=== PATIENT | female | born 1985 | race Caucasian/White ===

== ENCOUNTER 2017-11-28 08:21 | Emergency (ER) | payer BC, OTHER, SELFPAY ==
[2017-11-28 08:33] VITALS: BP 132/84; PULSE 93; RESP 16; TEMP 37; O2SAT 98
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
[2017-11-28] MEDS: Azithromycin 250 MG TAB 1000 MG PO (10:54)
[2017-11-28] MEDS: cefTRIAXone 250 MG VIAL IM (10:54)
== END 2017-11-28 11:35 | disposition home or self-care (01) ==
PROVIDERS: Emergency Provider Physician Assistant; PCP Nurse Practitioner Family
DX: T74.21XA Adult sexual abuse, confirmed, initial encounter (principal)
CPT/HCPCS: 96372; 99285; 99284; J0696

== ENCOUNTER 2018-02-14 03:18 | Outpatient (CLI) | payer BC, SELFPAY ==
--- NOTE | 2018-02-14 08:00 | PFT_ITS ---
DATE OF SERVICE: February 14, 2018 REQUESTING PROVIDER: Gino Husain M.D. INTERPRETATION OF STUDY: Spirometry shows no evidence of obstructive airways disease. No bronchodilator response. LUNG VOLUMES: Show no evidence of restriction. DIFFUSION CAPACITY: Borderline mildly elevated which is normal when corrected to alveolar volume. AIRWAYS RESISTANCE: Normal. IMPRESSION: Overall normal pulmonary function study. Clinical correlation recommended. If underlying hyperreactive airways or asthma is a diagnosis in question, proceeding with methacholine challenge testing may prove to be useful. cc: Gino Husain M.D.
[2018-02-14] MEDS: Inhaler, Assist Device 1 EACH MC (11:02)
[2018-02-14] MEDS: Albuterol HFA 18 GM 200 PUFF INH IH (11:03)
== END 2018-02-14 03:38 ==
PROVIDERS: PCP Nurse Practitioner Family; Visit Provider Family Medicine
DX: J20.9 Acute bronchitis, unspecified (principal); F17.200 Nicotine dependence, unspecified, uncomplicated

== ENCOUNTER 2018-03-17 14:20 | Emergency (ER) | payer BC, SELFPAY ==
[2018-03-17 14:27] VITALS: BP 112/64; PULSE 111; RESP 16; TEMP 36.7; O2SAT 98
--- NOTE | 2018-03-17 14:49 | W.ED.GENAD ---
Discharge Plan Disposition Patient Disposition: HOME Condition: Stable Discharge Details Chief Complaint: Nk/Back Pain Clinical Impression: Neck pain Primary Care Provider: Ara Torres ED Provider: Carol Maya Home Meds and New Rx's Prescriptions: New diazepam [Valium] 5 mg tablet 5 mg PO BID Qty: 8 RF: 0 Continue valacyclovir [Valtrex] 1 gram tablet 1,000 mg PO DAILY Qty: 90 RF: 3 acetaminophen [Tylenol Extra Strength] 500 MG tablet 2 tab PO PRN Qty: 2 RF: 0 sertraline 100 MG tablet 200 mg PO DAILY RF: 0 ibuprofen 800 MG tablet 800 mg PO PRN PRNRF: 0 No Action cyclobenzaprine 10 mg Tablet 10 mg PO TID PRNRF: 0 azithromycin 250 mg tablet 250 mg PO DAILY 9 Days Qty: 9 RF: 0 Discharge Instructions Instructions: Spasmodic Torticollis (ED) Additional Instructions: Please return immediately to the emergency department if you develop any new or worsening symptoms or if you become otherwise concerned. It is extremely important that you make an appointment to be seen in follow-up for this visit with your primary care doctor within the next 1-2 weeks. Stand Alone Forms: Work Release Referrals: Ara Torres [Primary Care Provider] - Discharge Data Discharge Date/Time-TO BE ENTERED AT DEPARTURE: 03/17/18 16:02 Medical Decision Making Laine Ham is a 32-year-old woman without history of major medical problems renting to the emergency department with several days of neck pain, worse after neck manipulation by chiropractor today. On exam patient appears uncomfortable but nontoxic. Right trapezius is visibly in spasm and is tender to palpation that reproduces pain of her chief complaint. There is no C-spine tenderness. No neurologic deficit, no carotid bruit. Exam/history is not consistent with carotid dissection or other acute vascular emergency, retropharyngeal abscess, peritonsillar abscess, other deep space infection, meningitis, subarachnoid hemorrhage, or other acute life-threatening process. Suspect torticollis. Plan for prednisone, Valium. Lengthy discussion with patient regarding return to emergency department precautions and importance of outpatient follow-up with PCP. Patient is amenable to the plan. VPMS search showed patient was prescribed 0.5 mg lorazepam in November, patient reports that she very rarely takes this medication has not taken in weeks. Lengthy discussion with patient regarding safe Valium use and Apsley no concurrent Valium and Ativan use. Patient understands the risk of with use of Valium and other sedating medications concurrently. She is amenable to appropriate valium use. Medical Records Medical records reviewed: Yes I reviewed the patient's medical records. HPI General Mode of arrival: ambulatory. Date/Time Provider Initiated Documentation: 03/17/18 14:42. Limitations to Documentation: no limitations. Information obtained by: patient, RN notes reviewed and old records reviewed. HPI Narrative: Laine Ham is a 32-year-old woman without history of major medical problems presenting to the emergency department with neck pain. Patient reports that 2 days ago she developed right-sided neck pain that was worse with movement of her neck. Patient went to see her chiropractor today for her neck pain, and her neck was manipulated there. Patient reports the neck pain has been much worse since manipulation. Pain is sharp, right-sided, radiates into right shoulder, and is worse with any movement of her neck. She denies headache or any other pain. She denies fevers, nausea/vomiting/diarrhea, rash, shortness of breath, cough, numbness, tingling, weakness of the extremities, speech change, vision changes. Has had cold symptoms over the past few weeks but otherwise has been healthy and eating and drinking normally. Patient reports that she has not had much to eat today because of the pain. Related Data Home Medications Medication Instructions Recorded Confirmed acetaminophen [Tylenol Extra 2 tab PO PRN #2 07/07/12 03/23/18 Strength] ibuprofen 800 mg PO PRN PRN 12/14/14 03/23/18 sertraline 200 mg PO DAILY tab-cap 01/09/17 03/23/18 valacyclovir 1 gram tablet 1,000 mg PO DAILY #90 tab 02/05/18 03/23/18 diazepam [Valium] 5 mg PO BID #8 tab 03/17/18 03/23/18 azithromycin 250 mg PO DAILY 9 Days #9 tab 03/23/18 cyclobenzaprine 10 mg PO TID PRN 03/23/18 03/23/18 Previous Rx's Medication Instructions Recorded valacyclovir 1 gram tablet 1,000 mg PO DAILY #90 tab 02/05/18 diazepam [Valium] 5 mg PO BID #8 tab 03/17/18 azithromycin 250 mg PO DAILY 9 Days #9 tab 03/23/18 Allergies Allergy/AdvReac Type Severity Reaction Status Date / Time latex Allergy Intermediate SKIN RASH Unverified 03/23/18 13:22 amoxicillin Allergy Unverified 03/23/18 13:22 [place] And Derivatives Allergy Hives Unverified 03/23/18 13:22 diphenhydramine Allergy Hives Unverified 03/23/18 13:22 [From Benadryl] General Stated Complaint: Nk/Back Pain SAMMI: 4 Review of Systems Review of Systems Constitutional: denies fevers Eyes: denies eye pain ENT: denies facial pain, dental pain, sore throat Cardiovascular: denies chest pain, edema Respiratory: denies SOB, cough GI: denies abdominal pain, vomiting, diarrhea : denies flank pain MSK: denies back pain, arthralgias, myalgias, reports neck pain Skin: denies rash Neuro: denies headaches, lightheadedness, weakness, n/t PFSH Female Reproductive History Menstrual control method: permanent sterilization Exam Narrative Exam Narrative: Constitutional: uncomfortable but [id number], pleasant, conversing normally HENT: head atraumatic, normocephalic normal inspection, mucous membranes moist, normal oropharynx, normal voice, no drooling Eyes: conjunctiva normal, sclera normal, pupils 3mm b/l Neck: no stridor, trachea midline. no c/s TTP. Right trapezius visibly in spasm, tender to palpation. No carotid bruit bilaterally. Can flex/extend neck fully, pain with lateral motion of the neck. No lymphadenopathy Chest: normal inspection Resp: normal work of breathing, LCTAB Cardio: normal rate, normal rhythm, no murmur appreciated Skin: warm, dry, normal color, no rash Neuro: alert, not altered, grossly non-focal, normal tone Ext: no edema Psych: normal mood, normal affect, normal behavior Course Vital Signs Temperature 36.7 C 03/17/18 14:27 Pulse 111 H 03/17/18 14:27 Respiratory Rate 16 03/17/18 14:27 Blood Pressure 112/64 03/17/18 14:27 Pulse Oximetry 98 03/17/18 14:27 Temperature 36.7 C 03/17/18 14:27 Temperature Source Temporal Artery Scan 03/17/18 14:27 Pulse 111 H 03/17/18 14:27 Respiratory Rate 16 03/17/18 14:27 Respiratory Effort 03/17/18 14:31 Blood Pressure 112/64 03/17/18 14:27 Blood Pressure Position Sitting 03/17/18 14:27 Pulse Oximetry 98 03/17/18 14:27 Oxygen Delivery Method Room Air 03/17/18 14:27 Oxygen Flow Rate 0 03/17/18 14:27 Pain Level 7 03/17/18 14:31
[2018-03-17] MEDS: predniSONE 20 MG TAB 60 MG PO (15:54)
[2018-03-17] MEDS: Diazepam 5 MG TAB PO (15:55)
[2018-03-17 16:00] VITALS: BP 124/63; PULSE 86; RESP 18; TEMP 36.7; O2SAT 98
--- NOTE | 2018-03-17 16:02 | ED.GENADUL_ITS ---
Discharge Plan Disposition Patient Disposition: HOME Condition: Stable Discharge Details Chief Complaint: Nk/Back Pain Clinical Impression: Neck pain Primary Care Provider: Ara Torres ED Provider: Carol Maya Home Meds and New Rx's Prescriptions: New diazepam [Valium] 5 mg tablet 5 mg PO BID Qty: 8 RF: 0 Continue valacyclovir [Valtrex] 1 gram tablet 1,000 mg PO DAILY Qty: 90 RF: 3 acetaminophen [Tylenol Extra Strength] 500 MG tablet 2 tab PO PRN Qty: 2 RF: 0 sertraline 100 MG tablet 200 mg PO DAILY RF: 0 ibuprofen 800 MG tablet 800 mg PO PRN PRNRF: 0 No Action cyclobenzaprine 10 mg Tablet 10 mg PO TID PRNRF: 0 azithromycin 250 mg tablet 250 mg PO DAILY 9 Days Qty: 9 RF: 0 Discharge Instructions Instructions: Spasmodic Torticollis (ED) Additional Instructions: Please return immediately to the emergency department if you develop any new or worsening symptoms or if you become otherwise concerned. It is extremely important that you make an appointment to be seen in follow-up for this visit with your primary care doctor within the next 1-2 weeks. Stand Alone Forms: Work Release Referrals: Ara Torres [Primary Care Provider] - Discharge Data Discharge Date/Time-TO BE ENTERED AT DEPARTURE: 03/17/18 16:02 Medical Decision Making Laine Ham is a 32-year-old woman without history of major medical problems renting to the emergency department with several days of neck pain, worse after neck manipulation by chiropractor today. On exam patient appears uncomfortable but nontoxic. Right trapezius is visibly in spasm and is tender to palpation that reproduces pain of her chief complaint. There is no C-spine tenderness. No neurologic deficit, no carotid bruit. Exam/history is not consistent with carotid dissection or other acute vascular emergency, retropharyngeal abscess, peritonsillar abscess, other deep space infection, meningitis, subarachnoid hemorrhage, or other acute life-threatening process. Suspect torticollis. Plan for prednisone, Valium. Lengthy discussion with patient regarding return to emergency department precautions and importance of outpatient follow-up with PCP. Patient is amenable to the plan. VPMS search showed patient was prescribed 0.5 mg lorazepam in November, patient reports that she very rarely takes this medication has not taken in weeks. Lengthy discussion with patient regarding safe Valium use and Apsley no concurrent Valium and Ativan use. Patient understands the risk of with use of Valium and other sedating medications concurrently. She is amenable to appropriate valium use. Medical Records Medical records reviewed: Yes I reviewed the patient's medical records. HPI General Mode of arrival: ambulatory . Date/Time Provider Initiated Documentation: 03/17/18 14:42 . Limitations to Documentation: no limitations . Information obtained by: patient, RN notes reviewed and old records reviewed . HPI Narrative: Laine Ham is a 32-year-old woman without history of major medical problems presenting to the emergency department with neck pain. Patient reports that 2 days ago she developed right-sided neck pain that was worse with movement of her neck. Patient went to see her chiropractor today for her neck pain, and her neck was manipulated there. Patient reports the neck pain has been much worse since manipulation. Pain is sharp, right-sided, radiates into right shoulder, and is worse with any movement of her neck. She denies headache or any other pain. She denies fevers, nausea/vomiting/diarrhea , rash, shortness of breath, cough, numbness, tingling, weakness of the extremities, speech change, vision changes. Has had cold symptoms over the past few weeks but otherwise has been healthy and eating and drinking normally. Patient reports that she has not had much to eat today because of the pain. Related Data Home Medications Medication Instructions Recorded Confirmed acetaminophen [Tylenol Extra 2 tab PO PRN #2 07/07/12 03/23/18 Strength] ibuprofen 800 mg PO PRN PRN 12/14/14 03/23/18 sertraline 200 mg PO DAILY tab-cap 01/09/17 03/23/18 valacyclovir 1 gram tablet 1,000 mg PO DAILY #90 tab 02/05/18 03/23/18 diazepam [Valium] 5 mg PO BID #8 tab 03/17/18 03/23/18 azithromycin 250 mg PO DAILY 9 Days #9 tab 03/23/18 cyclobenzaprine 10 mg PO TID PRN 03/23/18 03/23/18 Previous Rx's Medication Instructions Recorded valacyclovir 1 gram tablet 1,000 mg PO DAILY #90 tab 02/05/18 diazepam [Valium] 5 mg PO BID #8 tab 03/17/18 azithromycin 250 mg PO DAILY 9 Days #9 tab 03/23/18 Allergies Allergy/AdvReac Type Severity Reaction Status Date / Time latex Allergy Intermediate SKIN RASH Unverified 03/23/18 13:22 amoxicillin Allergy Unverified 03/23/18 13:22 [place] And Derivatives Allergy Hives Unverified 03/23/18 13:22 diphenhydramine Allergy Hives Unverified 03/23/18 13:22 [From Benadryl] General Stated Complaint: Nk/Back Pain SAMMI: 4 Review of Systems Review of Systems Constitutional: denies fevers Eyes: denies eye pain ENT: denies facial pain, dental pain, sore throat Cardiovascular: denies chest pain, edema Respiratory: denies SOB, cough GI: denies abdominal pain, vomiting, diarrhea : denies flank pain MSK: denies back pain, arthralgias, myalgias, reports neck pain Skin: denies rash Neuro: denies headaches, lightheadedness, weakness, n/t PFSH Female Reproductive History Menstrual control method: permanent sterilization Exam Narrative Exam Narrative: Constitutional: uncomfortable but [id number], pleasant , conversing normally HENT: head atraumatic, normocephalic normal inspection, mucous membranes moist, normal oropharynx, normal voice, no drooling Eyes: conjunctiva normal, sclera normal, pupils 3mm b/l Neck: no stridor, trachea midline. no c/s TTP. Right trapezius visibly in spasm , tender to palpation. No carotid bruit bilaterally. Can flex/extend neck fully, pain with lateral motion of the neck. No lymphadenopathy Chest: normal inspection Resp: normal work of breathing, LCTAB Cardio: normal rate, normal rhythm, no murmur appreciated Skin: warm, dry, normal color, no rash Neuro: alert, not altered, grossly non-focal, normal tone Ext: no edema Psych: normal mood, normal affect, normal behavior Course Vital Signs Temperature 36.7 C 03/17/18 14:27 Pulse 111 H 03/17/18 14:27 Respiratory Rate 16 03/17/18 14:27 Blood Pressure 112/64 03/17/18 14:27 Pulse Oximetry 98 03/17/18 14:27 Temperature 36.7 C 03/17/18 14:27 Temperature Source Temporal Artery Scan 03/17/18 14:27 Pulse 111 H 03/17/18 14:27 Respiratory Rate 16 03/17/18 14:27 Respiratory Effort 03/17/18 14:31 Blood Pressure 112/64 03/17/18 14:27 Blood Pressure Position Sitting 03/17/18 14:27 Pulse Oximetry 98 03/17/18 14:27 Oxygen Delivery Method Room Air 03/17/18 14:27 Oxygen Flow Rate 0 03/17/18 14:27 Pain Level 7 03/17/18 14:31
== END 2018-03-17 16:02 | disposition home or self-care (01) ==
PROVIDERS: Emergency Provider Student in an Organized Health Care Education/Training Program; PCP Nurse Practitioner Family
DX: M54.2 Cervicalgia (principal)
CPT/HCPCS: 99283; J7512

== ENCOUNTER 2018-03-23 13:13 | Emergency (ER) | payer BC, SELFPAY ==
[2018-03-23 13:19] VITALS: BP 134/79; PULSE 92; RESP 16; TEMP 37; O2SAT 99
--- NOTE | 2018-03-23 13:30 | W.ED.GENAD ---
Discharge Plan Disposition Patient Disposition: HOME Condition: Stable Discharge Details Chief Complaint: Nk/Back Pain Clinical Impression: Acute pharyngitis Primary Care Provider: Ara Torres ED Provider: Ian Griffith Home Meds and New Rx's Prescriptions: New azithromycin 250 mg tablet 250 mg PO DAILY 9 Days Qty: 9 RF: 0 Continue valacyclovir [Valtrex] 1 gram tablet 1,000 mg PO DAILY Qty: 90 RF: 3 acetaminophen [Tylenol Extra Strength] 500 MG tablet 2 tab PO PRN Qty: 2 RF: 0 sertraline 100 MG tablet 200 mg PO DAILY RF: 0 ibuprofen 800 MG tablet 800 mg PO PRN PRNRF: 0 diazepam [Valium] 5 mg tablet 5 mg PO BID Qty: 8 RF: 0 cyclobenzaprine 10 mg Tablet 10 mg PO TID PRNRF: 0 Discharge Instructions Instructions: Pharyngitis (ED) Additional Instructions: Continue ice, heat, medications as previously prescribed. Remove lidocaine patch in 1 week's time. Follow-up with primary care clinic on Saturday for recheck as planned. Take antibiotics as prescribed, next dose is tomorrow Return for worsening pain or any other acute concern Medical Decision Making 32-year-old female presents with days of right-sided neck pain now associated with sore throat and cough. She does not exhibit evidence of meningitis. She has no fever and vital signs notable for pulse in the 90s. Differential diagnosis includes pharyngitis, persistent torticollis or neck strain, must exclude deep space infection. Patient had IV access established, given fluids and ketorolac, referred for laboratory testing. Rapid strep test is positive. CBC and chemistries are essentially unremarkable. Patient's pain improved following the above interventions. Given her PCN allergy, will treat with Azithromycin. Patient will follow up with PMD on Saturday as planned. Return if worse. Lab Data Lab results reviewed: Yes I reviewed the patient's lab results. Laboratory Results - last 24 hr 03/23/18 03/23/18 13:40 13:40 WBC 7.50 RBC 4.33 Hgb 14.3 Hct 41.7 MCV 96.3 H MCH 33.0 MCHC 34.3 RDW 13.2 Plt Count 193 MPV 9.6 Immature Gran % 0.3 Neutrophils % 66.2 Lymphocytes % 25.9 Monocytes % 6.4 Eosinophils % 0.8 Basophils % 0.4 Absolute Neutrophils 4.97 Absolute Lymphocytes 1.94 Absolute Monocytes 0.48 Absolute Eosinophils 0.06 Absolute Basophils 0.03 Sodium 137 Potassium 3.9 Chloride 100 Carbon Dioxide 29.2 Anion Gap 7.8 BUN 15 Creatinine 0.80 Estimated GFR/1.73 m2 >= 60.00 Glucose 94 Calcium 8.6 Total Bilirubin 0.1 L AST 12 L ALT 18 Alkaline Phosphatase 42 L Total Protein 7.3 Albumin 4.1 HPI General Mode of arrival: ambulatory. Date/Time Provider Initiated Documentation: 03/23/18 13:15. Limitations to Documentation: no limitations. Information obtained by: patient. History of Present Illness 32 year old F presents to the emergency department with the chief complaint of Neck pain and sore throat, described as moderate, Quality is described as aching, and is localized to the mouth. Patient reports no radiation. Patient started experiencing this day(s) Rest improves symptom(s), Movement worsens symptoms . Patient notes fever/chills. HPI Narrative: Healthy 32-year-old female who was seen last Saturday for right-sided neck pain. She was treated with Valium and prednisone with minimal improvement. She now reports today sore throat with associated cough and congestion. She had persistent right-sided neck pain that is worse with movement and improved with rest. No fall or trauma. She is not have any changes to vision. She does not have change to voice or drooling. No numbness, tingling, weakness of the upper extremities Related Data Home Medications Medication Instructions Recorded Confirmed acetaminophen [Tylenol Extra 2 tab PO PRN #2 07/07/12 03/23/18 Strength] ibuprofen 800 mg PO PRN PRN 12/14/14 03/23/18 sertraline 200 mg PO DAILY tab-cap 01/09/17 03/23/18 valacyclovir 1 gram tablet 1,000 mg PO DAILY #90 tab 02/05/18 03/23/18 diazepam [Valium] 5 mg PO BID #8 tab 03/17/18 03/23/18 azithromycin 250 mg PO DAILY 9 Days #9 tab 03/23/18 cyclobenzaprine 10 mg PO TID PRN 03/23/18 03/23/18 Previous Rx's Medication Instructions Recorded valacyclovir 1 gram tablet 1,000 mg PO DAILY #90 tab 02/05/18 diazepam [Valium] 5 mg PO BID #8 tab 03/17/18 azithromycin 250 mg PO DAILY 9 Days #9 tab 03/23/18 Allergies Allergy/AdvReac Type Severity Reaction Status Date / Time latex Allergy Intermediate SKIN RASH Unverified 03/23/18 13:22 amoxicillin Allergy Unverified 03/23/18 13:22 [place] And Derivatives Allergy Hives Unverified 03/23/18 13:22 diphenhydramine Allergy Hives Unverified 03/23/18 13:22 [From Benadryl] General Stated Complaint: Nk/Back Pain SAMMI: 4 Review of Systems Review of Systems 8 systems reviewed and otherwise negative PFSH Family History Father Myocardial infarction Medical History Recurrent genital herpes simplex type 2 infection (Chronic) Polymerase chain reaction DNA test positive for herpes simplex virus type 2 (Acute 03/20/17) Tobacco use (Chronic) Bacterial vaginosis (Resolved) Depression (Resolved) Contraceptive management Social History number of children: 2 frequency: daily duration: 45-60 minutes/day Smoking/Tobacco Use Status: Current every day alcohol intake: current alcohol intake frequency: a few times a month Surgical History Ligation of fallopian tube (Acute 04/03/17) Female Reproductive History Menstrual control method: permanent sterilization Exam Narrative Exam Narrative: GEN: awake, alert, oriented 3. Pleasant, well groomed, interactive. HEAD: Normocephalic, atraumatic ENT: Mucous membranes moist, oropharynx with few areas of punctate ulceration, no exudate or swelling, External ear exam unremarkable EYES: PERRL, EOMI NECK: Full ROM, no KATI, no menigismus. Right paraspinous musculature is tender to palpation. CHEST/RESP: Nontender, clear to auscultation bilateral, no wheeze/rhonchi/rales CARDIOVASCULAR: RRR, no murmur, rub joelle. 2+ Rad pulse bilateral ABDOMEN: Soft, nontender, no mass. +Bowel sounds EXT: Full ROM, no edema, no rash Neuro: Grossly normal neurologic exam, conversant, interactive. Psych: Speech fluent, thoughts congruent, affect normal Course Vital Signs Temperature 37.0 C 03/23/18 13:19 Pulse 92 H 03/23/18 13:19 Respiratory Rate 16 03/23/18 13:19 Blood Pressure 134/79 03/23/18 13:19 Pulse Oximetry 99 03/23/18 13:19 Temperature 37.0 C 03/23/18 13:19 Temperature Source Skin 03/23/18 13:19 Pulse 92 H 03/23/18 13:19 Respiratory Rate 16 03/23/18 13:19 Respiratory Effort Non-Labored 03/23/18 13:21 Blood Pressure 134/79 03/23/18 13:19 Pulse Oximetry 99 03/23/18 13:19 Pain Level 8 03/23/18 13:23
--- NOTE | 2018-03-23 13:33 | ED.GENADUL_ITS ---
Discharge Plan Disposition Patient Disposition: HOME Condition: Stable Discharge Details Chief Complaint: Nk/Back Pain Clinical Impression: Acute pharyngitis Primary Care Provider: Ara Torres ED Provider: Ian Griffith Home Meds and New Rx's Prescriptions: New azithromycin 250 mg tablet 250 mg PO DAILY 9 Days Qty: 9 RF: 0 Continue valacyclovir [Valtrex] 1 gram tablet 1,000 mg PO DAILY Qty: 90 RF: 3 acetaminophen [Tylenol Extra Strength] 500 MG tablet 2 tab PO PRN Qty: 2 RF: 0 sertraline 100 MG tablet 200 mg PO DAILY RF: 0 ibuprofen 800 MG tablet 800 mg PO PRN PRNRF: 0 diazepam [Valium] 5 mg tablet 5 mg PO BID Qty: 8 RF: 0 cyclobenzaprine 10 mg Tablet 10 mg PO TID PRNRF: 0 Discharge Instructions Instructions: Pharyngitis (ED) Additional Instructions: Continue ice, heat, medications as previously prescribed. Remove lidocaine patch in 1 week's time. Follow-up with primary care clinic on Saturday for recheck as planned. Take antibiotics as prescribed, next dose is tomorrow Return for worsening pain or any other acute concern Medical Decision Making 32-year-old female presents with days of right-sided neck pain now associated with sore throat and cough. She does not exhibit evidence of meningitis. She has no fever and vital signs notable for pulse in the 90s. Differential diagnosis includes pharyngitis, persistent torticollis or neck strain, must exclude deep space infection. Patient had IV access established, given fluids and ketorolac, referred for laboratory testing. Rapid strep test is positive. CBC and chemistries are essentially unremarkable. Patient's pain improved following the above interventions. Given her PCN allergy, will treat with Azithromycin. Patient will follow up with PMD on Saturday as planned. Return if worse. Lab Data Lab results reviewed: Yes I reviewed the patient's lab results. Laboratory Results - last 24 hr 03/23/18 03/23/18 13:40 13:40 WBC 7.50 RBC 4.33 Hgb 14.3 Hct 41.7 MCV 96.3 H MCH 33.0 MCHC 34.3 RDW 13.2 Plt Count 193 MPV 9.6 Immature Gran % 0.3 Neutrophils % 66.2 Lymphocytes % 25.9 Monocytes % 6.4 Eosinophils % 0.8 Basophils % 0.4 Absolute Neutrophils 4.97 Absolute Lymphocytes 1.94 Absolute Monocytes 0.48 Absolute Eosinophils 0.06 Absolute Basophils 0.03 Sodium 137 Potassium 3.9 Chloride 100 Carbon Dioxide 29.2 Anion Gap 7.8 BUN 15 Creatinine 0.80 Estimated GFR/1.73 m2 >= 60.00 Glucose 94 Calcium 8.6 Total Bilirubin 0.1 L AST 12 L ALT 18 Alkaline Phosphatase 42 L Total Protein 7.3 Albumin 4.1 HPI General Mode of arrival: ambulatory . Date/Time Provider Initiated Documentation: 03/23/18 13:15 . Limitations to Documentation: no limitations . Information obtained by: patient . History of Present Illness 32 year old F presents to the emergency department with the chief complaint of Neck pain and sore throat, described as moderate, Quality is described as aching, and is localized to the mouth. Patient reports no radiation. Patient started experiencing this day(s) Rest improves symptom(s), Movement worsens symptoms . Patient notes fever/chills. HPI Narrative: Healthy 32-year-old female who was seen last Saturday for right- sided neck pain. She was treated with Valium and prednisone with minimal improvement. She now reports today sore throat with associated cough and congestion. She had persistent right-sided neck pain that is worse with movement and improved with rest. No fall or trauma. She is not have any changes to vision. She does not have change to voice or drooling. No numbness , tingling, weakness of the upper extremities Related Data Home Medications Medication Instructions Recorded Confirmed acetaminophen [Tylenol Extra 2 tab PO PRN #2 07/07/12 03/23/18 Strength] ibuprofen 800 mg PO PRN PRN 12/14/14 03/23/18 sertraline 200 mg PO DAILY tab-cap 01/09/17 03/23/18 valacyclovir 1 gram tablet 1,000 mg PO DAILY #90 tab 02/05/18 03/23/18 diazepam [Valium] 5 mg PO BID #8 tab 03/17/18 03/23/18 azithromycin 250 mg PO DAILY 9 Days #9 tab 03/23/18 cyclobenzaprine 10 mg PO TID PRN 03/23/18 03/23/18 Previous Rx's Medication Instructions Recorded valacyclovir 1 gram tablet 1,000 mg PO DAILY #90 tab 02/05/18 diazepam [Valium] 5 mg PO BID #8 tab 03/17/18 azithromycin 250 mg PO DAILY 9 Days #9 tab 03/23/18 Allergies Allergy/AdvReac Type Severity Reaction Status Date / Time latex Allergy Intermediate SKIN RASH Unverified 03/23/18 13:22 amoxicillin Allergy Unverified 03/23/18 13:22 [place] And Derivatives Allergy Hives Unverified 03/23/18 13:22 diphenhydramine Allergy Hives Unverified 03/23/18 13:22 [From Benadryl] General Stated Complaint: Nk/Back Pain SAMMI: 4 Review of Systems Review of Systems 8 systems reviewed and otherwise negative PFSH Family History Father Myocardial infarction Medical History Recurrent genital herpes simplex type 2 infection (Chronic) Polymerase chain reaction DNA test positive for herpes simplex virus type 2 ( Acute 03/20/17) Tobacco use (Chronic) Bacterial vaginosis (Resolved) Depression (Resolved) Contraceptive management Social History number of children: 2 frequency: daily duration: 45-60 minutes/day Smoking/Tobacco Use Status: Current every day alcohol intake: current alcohol intake frequency: a few times a month Surgical History Ligation of fallopian tube (Acute 04/03/17) Female Reproductive History Menstrual control method: permanent sterilization Exam Narrative Exam Narrative: GEN: awake, alert, oriented 3. Pleasant, well groomed, interactive. HEAD: Normocephalic, atraumatic ENT: Mucous membranes moist, oropharynx with few areas of punctate ulceration, no exudate or swelling, External ear exam unremarkable EYES: PERRL, EOMI NECK: Full ROM, no KATI, no menigismus. Right paraspinous musculature is tender to palpation. CHEST/RESP: Nontender, clear to auscultation bilateral, no wheeze/rhonchi/rales CARDIOVASCULAR: RRR, no murmur, rub joelle. 2+ Rad pulse bilateral ABDOMEN: Soft, nontender, no mass. +Bowel sounds EXT: Full ROM, no edema, no rash Neuro: Grossly normal neurologic exam, conversant, interactive. Psych: Speech fluent, thoughts congruent, affect normal Course Vital Signs Temperature 37.0 C 03/23/18 13:19 Pulse 92 H 03/23/18 13:19 Respiratory Rate 16 03/23/18 13:19 Blood Pressure 134/79 03/23/18 13:19 Pulse Oximetry 99 03/23/18 13:19 Temperature 37.0 C 03/23/18 13:19 Temperature Source Skin 03/23/18 13:19 Pulse 92 H 03/23/18 13:19 Respiratory Rate 16 03/23/18 13:19 Respiratory Effort Non-Labored 03/23/18 13:21 Blood Pressure 134/79 03/23/18 13:19 Pulse Oximetry 99 03/23/18 13:19 Pain Level 8 03/23/18 13:23
[2018-03-23] MEDS: Lactated Ringers 1,000 ML 1000 ML IV (13:46)
[2018-03-23] MEDS: Ketorolac 30 MG/ML VIAL IVP (13:46)
[2018-03-23 13:58] LABS: Abs Immature Grans 0.02 k/cumm (0.0-0.09); Absolute Basophil Count 0.03 k/cumm (0.0-0.2); Absolute Eosinophil Count 0.06 k/cumm (0.0-0.7); Absolute Lymphocyte Count 1.94 k/cumm (1.2-3.4); Absolute Monocyte Count 0.48 k/cumm (0.11-0.7); Absolute Neutrophil Count 4.97 k/cumm (1.2-6.7); Basophils % 0.4; Eosinophils % 0.8; HCT 41.7 % (36.0-46.0); HGB 14.3 g/dL (12.0-15.5); Immature Grans % 0.3; Lymphocytes % 25.9; Mean Corp. HGB Concentration 34.3 g/dL (32.0-36.0); Mean Corpuscular Volume 96.3 fL (80-95); Mean Platelet Volume 9.6 fL (8.0-11.0); Monocytes % 6.4; Neutrophils % 66.2; Platelet Count 193 x1000/uL (130-400); RBC 4.33 m/cumm (4.00-5.20); RBC Distribution Width 13.2 % (11.7-14.6)
[2018-03-23 14:10] LABS: ALT 18 U/L (12-78); AST 12 U/L (15-37); Albumin 4.1 g/dL (3.4-5.0); Alkaline Phosphatase 42 U/L (46-116); Anion Gap 7.8 mmol/L (3-11); BUN 15 mg/dL (7-18); Bilirubin, Total 0.1 mg/dL (0.2-1.0); CO2 29.2 mmol/L (21.0-32.0); Calcium 8.6 mg/dL (8.5-10.1); Chloride 100 mmol/L (98-107); Glucose 94 mg/dL (70-100); Potassium 3.9 mmol/L (3.5-5.1); Sodium 137 mmol/L (136-145); Total Protein 7.3 g/dL (6.4-8.2)
[2018-03-23 14:42] VITALS: BP 126/71; PULSE 83; RESP 16; O2SAT 99
[2018-03-23] MEDS: Azithromycin 250 MG TAB 500 MG PO (14:42)
[2018-03-23] MEDS: Lidocaine 5% Patch 1 PATCH TP (14:42)
== END 2018-03-23 14:52 | disposition home or self-care (01) ==
LOC: ER 15:07
PROVIDERS: Emergency Provider Emergency Medicine; PCP Nurse Practitioner Family
DX: J02.0 Streptococcal pharyngitis (principal); F17.210 Nicotine dependence, cigarettes, uncomplicated; M54.2 Cervicalgia
CPT/HCPCS: 36415; 80053; 87880; 96360; 96374; 99284; 85025; J1885

== ENCOUNTER 2018-03-25 12:27 | Emergency (ER) | payer BC, SELFPAY ==
[2018-03-25] VITALS (59 sets, daily range): BP systolic 104–138; BP diastolic 57–81; PULSE 54–86; RESP 9–25; TEMP 36.5–36.7; O2SAT 94–100
--- NOTE | 2018-03-25 13:28 | DI.CT_ITS ---
SYMPTOMS/DIAGNOSIS: HEADACHE, NECK STIFFNESS NONCONTRAST HEAD CT: Comparison is made with November,. No intracranial hemorrhage, mass or infarct is seen. There is no evidence of skull fracture. The ventricles are normal in size. The orbits, sinuses and mastoid air cells are unremarkable. IMPRESSION: Negative head CT.
--- NOTE | 2018-03-25 13:31 | ED.GENADUL_ITS ---
Discharge Plan Disposition Patient Disposition: AGAINST MEDICAL ADVICE Discharge Details Chief Complaint: GenMedical Clinical Impression: Neck pain, Headache Primary Care Provider: Ara Torres ED Provider: Evangelist Maya Home Meds and New Rx's Prescriptions: No Action valacyclovir [Valtrex] 1 gram tablet 1,000 mg PO DAILY Qty: 90 RF: 3 acetaminophen [Tylenol Extra Strength] 500 MG tablet 2 tab PO PRN Qty: 2 RF: 0 sertraline 100 MG tablet 200 mg PO DAILY RF: 0 ibuprofen 800 MG tablet 800 mg PO PRN PRNRF: 0 diazepam [Valium] 5 mg tablet 5 mg PO BID Qty: 8 RF: 0 cyclobenzaprine 10 mg Tablet 10 mg PO TID PRNRF: 0 azithromycin 250 mg tablet 250 mg PO DAILY 9 Days Qty: 9 RF: 0 Discharge Instructions Instructions: Against Medical Advice (ED) Additional Instructions: You are leaving against medical advice. Please return to the ER at anytime for further workup and treatment. Please call you doctor to arrange follow-up peg. Referrals: Ara Torres [Primary Care Provider] - Medical Decision Making 16:00 --32-year-old female with history of viral meningitis in 2013, recently seen here and diagnosed with pharyngitis and started on azithromycin which she has been taking, here with 10 days of worsening neck pain and now stiffness with associated fatigue and occipital headache. Concern for potential meningitis. Dialudid IV given for pain. CT of the head obtained and interpreted by radiology: Negative head CT. Labs reviewed and mild elevation of lactate. No leukocytosis. I consulted CAROLINA Fuller to assist with LP. LP performed in upright position without complication per CAROLINA Fuller. 18:00 -- Labs reviewed and CSF findings not consistent with infection or hemorrhage. Patient reassessed and still with pain. Plan for CTA neck. 19:00 -- Patient ambulated to bathroom. Patient frustrated with prolonged ED visit. I explained to patient that some diagnostic tests take time and that CT scanner has been occupied but should be available soon. Patient does not wish stay for additional diagnostics or treatment. I explained the importance of additional diagnostic testing and observation and recommended that she stay for testing. Patient verbalized understanding of my concerns and still wishes to leave. She plans to follow-up with her doctor or potentially seek care at another hospital. I again reiterated my concerns and specifically that she may have life-threatening her lifestyle modifying disease that would go undiagnosed and untreated should she leave at this time. Patient has decisional making capacity and provided informed refusal. Patient left against medical advise. HPI General Mode of arrival: ambulatory . Date/Time Provider Initiated Documentation: 03/25/18 13:00 . Limitations to Documentation: no limitations . Information obtained by: patient . HPI Narrative: 32-year-old female presents with chief complaint of neck pain. Patient notes neck pain for the past 10 days. Pain severe. Localized to bilateral neck and radiates to occipital head. Neck feels stiff. No associated numbness or weakness. She does note associated fatigue, TOURE and fever. She had a fever of 101.4 last night. She has been taking ibuprofen and tylenol for the pain. Patient denies associated rash. She has a history of viral meningitis in 2013. Patient was seen here on 03/17 the emergency and emergency department for neck pain that seemed to be local anterior-inferior lateral on the right. Exam and history was not consistent with carotid dissection or other acute vascular emergency, retropharyngeal abscess, peritonsillar abscess, other deep space infection, meningitis, subarachnoid hemorrhage, or other life-threatening process. Torticollis this was suspected. Patient was seen again in the emergency department on 03/23/18 with right-sided neck pain that was associated with sore throat and cough. She did not exhibit evidence of meningitis. Rapid strep test was positive. Patient had a penicillin allergy and decision was made to treat with azithromycin which she has been taking. Patient follow-up with her primary care physician today who is concerned about potential meningitis and sent her to the emergency department for further evaluation. Related Data Home Medications Medication Instructions Recorded Confirmed acetaminophen [Tylenol Extra 2 tab PO PRN #2 07/07/12 03/25/18 Strength] ibuprofen 800 mg PO PRN PRN 12/14/14 03/25/18 sertraline 200 mg PO DAILY tab-cap 01/09/17 03/25/18 valacyclovir 1 gram tablet 1,000 mg PO DAILY #90 tab 02/05/18 03/25/18 diazepam [Valium] 5 mg PO BID #8 tab 03/17/18 03/25/18 azithromycin 250 mg PO DAILY 9 Days #9 tab 03/23/18 03/25/18 cyclobenzaprine 10 mg PO TID PRN 03/23/18 03/25/18 Previous Rx's Medication Instructions Recorded valacyclovir 1 gram tablet 1,000 mg PO DAILY #90 tab 02/05/18 diazepam [Valium] 5 mg PO BID #8 tab 03/17/18 azithromycin 250 mg PO DAILY 9 Days #9 tab 03/23/18 Allergies Allergy/AdvReac Type Severity Reaction Status Date / Time latex Allergy Intermediate SKIN RASH Unverified 03/25/18 12:40 amoxicillin Allergy Unverified 03/25/18 12:40 [place] And Derivatives Allergy Hives Unverified 03/25/18 12:40 diphenhydramine Allergy Hives Unverified 03/25/18 12:40 [From Benadryl] General Stated Complaint: GenMedical SAMMI: 3 Review of Systems Review of Systems All systems reviewed & are unremarkable except as noted in HPI and below Constitutional Reports body ache(s), Reports fever(s) and Reports headache(s) Eyes Denies loss of vision ENT Reports headache(s) and Reports neck pain Cardiovascular Denies syncope Respiratory Denies cough Gastrointestinal Denies abdominal pain Musculoskeletal Reports neck pain Neurologic Denies abnormal speech, Denies syncope, Reports headache(s), Denies loss of vision and Denies paresthesias PFSH Family History Father Myocardial infarction Medical History Recurrent genital herpes simplex type 2 infection (Chronic) Polymerase chain reaction DNA test positive for herpes simplex virus type 2 ( Acute 03/20/17) Tobacco use (Chronic) Bacterial vaginosis (Resolved) Depression (Resolved) Contraceptive management Social History number of children: 2 frequency: daily duration: 45-60 minutes/day Smoking/Tobacco Use Status: Current every day alcohol intake: current alcohol intake frequency: a few times a month Surgical History Ligation of fallopian tube (Acute 04/03/17) Female Reproductive History Menstrual control method: permanent sterilization Exam Const General: cooperative and no acute distress HENMT Head: normocephalic and atraumatic Mouth: moist mucous membranes Eyes Conjunctivae: normal conjunctivae Sclera: normal sclerae EOM: EOM intact bilaterally Neck Neck: limited ROM (stiff), trachea midline, tender (posterior) and torticollis Carotids: no bruits Resp Auscultation: clear to auscultation bilaterally, no rales, no rhonchi and no wheezes Cardio Jugular venous pressure: no JVD Rate: regular rate and not tachycardic Rhythm: regular rhythm Heart Sounds: murmur systolic I/ GI Palpation: soft, not firm, no guarding, no masses, not rigid and nontender Skin General skin exam: no rashes or lesions noted Neuro General: alert, awake, oriented x3 and tone normal Extrem General: no edema Psych Appearance: grossly normal Mental Status: mental status grossly normal Speech and Movement: speech and movement normal Course Vital Signs Temperature 36.5 C 03/25/18 12:36 Pulse 69 03/25/18 12:36 Respiratory Rate 16 03/25/18 12:36 Blood Pressure 122/81 03/25/18 12:36 Pulse Oximetry 100 03/25/18 12:36 Temperature 36.5 C 03/25/18 12:36 Temperature Source Skin 03/25/18 12:36 Pulse 69 03/25/18 12:36 Respiratory Rate 16 03/25/18 13:15 Respiratory Effort Non-Labored 03/25/18 13:15 Respiratory Depth Normal 03/25/18 13:15 Respiratory Pattern Normal 03/25/18 13:15 Blood Pressure 122/81 03/25/18 12:36 Pulse Oximetry 100 03/25/18 12:36 Oxygen Delivery Method Room Air 03/25/18 12:36 Oxygen Flow Rate 0 03/25/18 12:36 Pain Level 9 03/25/18 12:36 Lab/Test Results Lab/Test Results: 03/25/18 13:28 Blood Blood Culture - Pending 03/25/18 13:28 Blood Blood Culture - Pending
[2018-03-25] MEDS: Lactated Ringers 1,000 ML 1000 ML IV (13:50)
[2018-03-25] MEDS: HYDROmorphone 2 MG/ML VIAL 1 MG IVP (14:03)
[2018-03-25 14:05] LABS: Lactate-non-spesis 1.1 mmol/L (0.6-1.4)
[2018-03-25 14:07] LABS: Absolute Basophil Count 0.03 k/cumm (0.0-0.2); Absolute Eosinophil Count 0.03 k/cumm (0.0-0.7); Absolute Lymphocyte Count 1.75 k/cumm (1.2-3.4); Absolute Monocyte Count 0.39 k/cumm (0.11-0.7); Basophils % 0.5; Eosinophils % 0.5; HCT 41.2 % (36.0-46.0); HGB 14.3 g/dL (12.0-15.5); Lymphocytes % 26.9; Mean Corp. HGB Concentration 34.7 g/dL (32.0-36.0); Mean Corpuscular Hemoglobin 33.4 pg (27.0-33.0); Mean Corpuscular Volume 96.3 fL (80-95); Mean Platelet Volume 9.6 fL (8.0-11.0); Neutrophils % 66.1; Platelet Count 190 x1000/uL (130-400); RBC 4.28 m/cumm (4.00-5.20); RBC Distribution Width 13.4 % (11.7-14.6)
[2018-03-25 14:34] LABS: ALT 24 U/L (12-78); AST 19 U/L (15-37); Albumin 4.1 g/dL (3.4-5.0); Alkaline Phosphatase 37 U/L (46-116); Anion Gap 10.4 mmol/L (3-11); BUN 7 mg/dL (7-18); Bilirubin, Total 0.4 mg/dL (0.2-1.0); CO2 28.6 mmol/L (21.0-32.0); CREATININE 0.85 mg/dL (0.55-1.02); Calcium 9.3 mg/dL (8.5-10.1); Chloride 103 mmol/L (98-107); Glucose 88 mg/dL (70-100); Potassium 3.6 mmol/L (3.5-5.1); Sodium 142 mmol/L (136-145); Total Protein 7.2 g/dL (6.4-8.2)
[2018-03-25 14:38] LABS: Troponin I < 0.02 ng/mL (0.00-0.06)
--- NOTE | 2018-03-25 15:30 | PDOC.ANES ---
Anesthesia Note Report Anesthesia Note: anesthesia note ER busy, was requested by ED MD to do consented lumbar puncture for 32 year old female patient R/O menningitis. Sent by PCP for LP following 3 days neck pain. On antibiotic for strept. Procedure explained to pt. Has had LP in past with resulting dural puncture headache requiring epidural blood patch. Will use 22 [place] spinal needle. pt understands may still get spinal headache. Sitting position using spinal positioning device. Skin prep chlorhexidine. Sterile technique. lidocaine skin wheal. Easy first pass to csf. openning pressures 35 which is appx 15 cm higher than for lateral positioning.Spinal fluid collected in order in 4 tubes. Fluid appears clear. Pt reports that procedure was uneventful and comfortable.
[2018-03-25 16:47] LABS: Clarity Clear; RBC 0 /mm3 (0-5); Tube # 4; WBC 2 /mm3 (0-5); Xanthochromia Absent
[2018-03-25 16:51] LABS: Glucose (CSF) 54 mg/dL (40-70); Total Protein (CSF) 28 mg/dL (15-45)
[2018-03-25] MEDS: Acetaminophen 325 MG TAB 650 MG PO (17:59)
== END 2018-03-25 19:14 | disposition left against medical advice (07) ==
PROVIDERS: Emergency Provider Student in an Organized Health Care Education/Training Program; PCP Nurse Practitioner Family
DX: M54.2 Cervicalgia (principal); R51 Headache
CPT/HCPCS: 36415; 80053; 82945; 87040; 87529; 89050; 89051; 96361; 96374; 96375; 99284; 70450; 83605; 84157; 84484; 85025; 87070; 87205; J1885

== ENCOUNTER 2018-03-26 12:00 | Emergency (ER) | payer SELFPAY ==
[2018-03-26] VITALS (63 sets, daily range): BP systolic 98–152; BP diastolic 63–103; PULSE 54–91; RESP 9–28; TEMP 37.1–37.3; O2SAT 95–100
[2018-03-26 13:01] LABS: Abs Immature Grans 0.02 k/cumm (0.0-0.09); Absolute Basophil Count 0.02 k/cumm (0.0-0.2); Absolute Eosinophil Count 0.03 k/cumm (0.0-0.7); Absolute Lymphocyte Count 1.71 k/cumm (1.2-3.4); Absolute Monocyte Count 0.44 k/cumm (0.11-0.7); Absolute Neutrophil Count 4.27 k/cumm (1.2-6.7); Basophils % 0.3; Eosinophils % 0.5; HCT 41.6 % (36.0-46.0); HGB 14.3 g/dL (12.0-15.5); Immature Grans % 0.3; Lymphocytes % 26.3; Mean Corp. HGB Concentration 34.4 g/dL (32.0-36.0); Mean Corpuscular Volume 96.1 fL (80-95); Mean Platelet Volume 9.7 fL (8.0-11.0); Monocytes % 6.8; Neutrophils % 65.8; Platelet Count 190 x1000/uL (130-400); RBC 4.33 m/cumm (4.00-5.20); RBC Distribution Width 13.4 % (11.7-14.6); White Blood Cell Count 6.49 k/cumm (4.4-10.8)
[2018-03-26] MEDS: Ketorolac 30 MG/ML VIAL 15 MG IVP (13:04)
[2018-03-26] MEDS: Prochlorperazine 10 MG/2 ML VIAL IVP (13:05)
[2018-03-26] MEDS: Normal Saline 1,000 ML 1000 ML IV (13:06)
[2018-03-26] MEDS: methylPREDNISolone SUCC 125 MG VIAL IVP (13:06)
--- NOTE | 2018-03-26 13:18 | W.ED.GENAD ---
Discharge Plan Disposition Patient Disposition: HOME Condition: Good Discharge Details Chief Complaint: Dizzy/Sync Clinical Impression: Complication of lumbar puncture Primary Care Provider: Ara Torres ED Provider: Kobe Lucas Home Meds and New Rx's Prescriptions: No Action valacyclovir [Valtrex] 1 gram tablet 1,000 mg PO DAILY Qty: 90 RF: 3 acetaminophen [Tylenol Extra Strength] 500 MG tablet 2 tab PO PRN Qty: 2 RF: 0 sertraline 100 MG tablet 200 mg PO DAILY RF: 0 ibuprofen 800 MG tablet 800 mg PO PRN PRNRF: 0 diazepam [Valium] 5 mg tablet 5 mg PO BID Qty: 8 RF: 0 cyclobenzaprine 10 mg Tablet 10 mg PO TID PRNRF: 0 azithromycin 250 mg tablet 250 mg PO DAILY 9 Days Qty: 9 RF: 0 Discharge Instructions Instructions: Lumbar Puncture (ED) Additional Instructions: Please drink caffeine as needed. Please drink 8-10 cups of water per day. If you notice return of your headache you may have to return for a blood patch. If you notice any worsening of your symptoms including any new symptoms such as numbness, tingling, worsening headache, chest pain, shortness of breath, or repeat syncope please return immediately for reevaluation. Referrals: Ara Torres [Primary Care Provider] - Medical Decision Making This is a pleasant 32-year-old female who presents for evaluation of syncope and headache. She has had some headache and neck pain over the last few days and has had a fairly extensive workup including a lumbar puncture, CT scan of her head and laboratory workup, all of which is returned benign with no significant abnormalities. Unfortunately after her lumbar puncture yesterday the patient left AGAINST MEDICAL ADVICE prior to being formally discharged. Thankfully her lumbar puncture results were negative at that time, with no evidence of bacterial or viral meningitis CT scan was also negative at that time. She went home with some mild improvement of her headache and neck pain however this morning she noted that the headache had returned and was slightly worse and different. It was better when she lies flat, and worse when she sat up or stood up. She shows no signs of nuchal rigidity, or meningismus. Negative Kernig's and Brudzinski's. She demonstrates no red flags of polycystic kidney disease, Marfan syndrome, Vivi-Danlos syndrome. Her headache was not thunderclap in origin. She demonstrates no neurologic abnormalities on clinical exam. Additionally in regards to her syncope her signs and symptoms appear clinically consistent with vasovagal syncope most likely from dehydration and having taken her home Valium prior to the event. She stood up, had tunnel vision, and then syncopized. No signs of significant trauma on exam, EKG is benign with no concerning epsilon wave, delta wave, or other significant abnormality. Patient signs and symptoms appear clinically consistent with post LP headache. We did give the patient steroids, a migraine cocktail, as well as IV caffeine. I also performed a posterior occipital block with 5 cc of 2% lidocaine without epinephrine. The patient had complete resolution of her headache symptoms after this, she states that she feels well enough to go home. Patient will be discharged home following completion of her fluids. We did discuss with her the potential need to return for a blood patch if her headache does return and distant to the therapy that was given today. Patient understands. We discussed red flags which return. We discussed the patient's plan, as well as red flags which return, patient demonstrates verbal understanding, we discussed the importance of close follow-up with her PCP and she understands. EKG 13: 19 Rate 63, intervals normal, sinus rhythm, no significant ST elevations or depressions, no Q waves. No T wave inversions HPI General Date/Time Provider Initiated Documentation: 03/26/18 12:03. HPI Narrative: This is a 32-year-old female with a past medical history of herpes simplex and tobacco use who presents for evaluation of headache. Patient has had a headache for the past 10 days with associated neck pain. It is located in the bilateral neck radiating to the occiput and her head and the top of her head. She has been here multiple times over the past week and a half with multiple benign workups. She has complained of an associated fever 2 nights ago but none since then has been taking ibuprofen and Tylenol for improvement of her pain. She does have a history of viral meningitis. Her initial visit was on 03/17 where she had a relatively benign clinical appearance, torticollis was suspected. She was eventually discharged and then returned on 03/23 with right-sided neck pain associated with sore throat and cough she had no evidence of meningitis at that time, rapid strep was positive, she was given azithromycin at that time of discharge. She then followed up with her PCP and on 03/25 she was sent here to the ER for further evaluation of potential meningitis who was concern for meningitis. CT scan of the head, lumbar puncture, and laboratory workup were benign and showed no evidence of bacterial or viral meningitis. Unfortunately the patient did not have complete resolution of her symptoms and left AGAINST MEDICAL ADVICE before completion of her workup. Since then the patient has had mild to moderate continuation of her headache, which she now states is slightly different. It is worse when she sits upright, or stands that is better when she lies flat. It is not necessarily made worse with light or sound. She describes it as a throbbing sensation at the top of her head. She did admit to one episode of vomiting this morning but no other significant abnormalities. Patient does state that today at work she did stand up relatively fast from her desk and got very lightheaded, her vision went black and white and she syncopized. She does not recall hitting her head. She denies any new headache or change in headache aside for her chronic headache for the last few days. She denies any chest pain or shortness of breath. She denies any family history of sudden cardiac . In regards to her headache she has had a headache similar to this in the past when she had a lumbar puncture for her previous meningitis and she required a blood patch at that time. Patient denies any other additional complaints at this time. She denies any thunderclap component of her headache, she denies any vision changes. She is still able to eat drink and swallow well. She has no other additional complaints at this time Related Data Home Medications Medication Instructions Recorded Confirmed acetaminophen [Tylenol Extra 2 tab PO PRN #2 07/07/12 03/26/18 Strength] ibuprofen 800 mg PO PRN PRN 12/14/14 03/26/18 sertraline 200 mg PO DAILY tab-cap 01/09/17 03/26/18 valacyclovir 1 gram tablet 1,000 mg PO DAILY #90 tab 02/05/18 03/26/18 diazepam [Valium] 5 mg PO BID #8 tab 03/17/18 03/26/18 azithromycin 250 mg PO DAILY 9 Days #9 tab 03/23/18 03/26/18 cyclobenzaprine 10 mg PO TID PRN 03/23/18 03/26/18 Previous Rx's Medication Instructions Recorded valacyclovir 1 gram tablet 1,000 mg PO DAILY #90 tab 02/05/18 diazepam [Valium] 5 mg PO BID #8 tab 03/17/18 azithromycin 250 mg PO DAILY 9 Days #9 tab 03/23/18 Allergies Allergy/AdvReac Type Severity Reaction Status Date / Time latex Allergy Intermediate SKIN RASH Unverified 03/26/18 12:12 amoxicillin Allergy Unverified 03/26/18 12:12 [place] And Derivatives Allergy Hives Unverified 03/26/18 12:12 diphenhydramine Allergy Hives Unverified 03/26/18 12:12 [From Benadryl] General Stated Complaint: Dizzy/Sync SAMMI: 2 Review of Systems Review of Systems All systems reviewed & are unremarkable except as noted in HPI and below PFSH Female Reproductive History Menstrual control method: permanent sterilization Exam Narrative Exam Narrative: 1.Const: Well-nourished, Well-developed, appearing stated age,, the patient appears clinically well with normal and reassuring vital signs 2.Eyes: PERRL, no conjunctival injection, and symmetrical lids. 3.ENT: Atraumatic external nose and ears. Moist MM. Neck: Symmetric, trachea midline, No thyromegaly. No significant erythema in the posterior oropharynx. No signs of airway compromise. Patient does demonstrate neck tenderness on exam, however neck is very soft and supple with no nuchal rigidity. Negative Kernig's and Brudzinski's. 4.CVS: +S1/S2, No murmurs or gallops. Peripheral pulses 2+ and equal in all extremities. Brisk capillary refill in all extremities. 5.RESP: Unlabored respiratory effort. Clear to auscultation bilaterally. No wheezes rales or rhonchi 6.GI: Soft, Nontender/Nondistended, No hepatosplenomegaly. No guarding or rebound. 7.MSK: Normocephalic/Atraumatic, Extremities w/o deformity or ttp No cyanosis or clubbing, Normal movement of all extremities 8.Skin: Warm, Dry. No rashes or lesions. 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 Sensation grossly intact, no focal neurologic deficits. All 6 cardinal planes of vision are fully intact. No evidence of rotatory or vertical nystagmus. The patient demonstrated a normal [id number], good dexterity. There was no evidence of dysdiadochokinesia. Patient was able to ambulate without difficulty. There was no wide-based gait. Romberg, and [id number] are both normal on testing. Sensation was intact bilaterally as well as muscle strength bilaterally for all extremities. Patient was able to verbalize butter cup with no slurring, or miss pronunciation. 10.Psych: (AAO) x3. Appropriate mood and affect Course Vital Signs Temperature 37.1 C 03/26/18 12:09 Pulse 79 03/26/18 12:09 Respiratory Rate 18 03/26/18 12:09 Blood Pressure 152/103 H 03/26/18 12:09 Pulse Oximetry 100 03/26/18 12:09 Temperature 37.1 C 03/26/18 12:09 Temperature Source Skin 03/26/18 12:09 Pulse 79 03/26/18 12:09 Respiratory Rate 20 03/26/18 12:18 Respiratory Effort 03/26/18 12:18 Respiratory Depth Normal 03/26/18 12:18 Blood Pressure 152/103 H 03/26/18 12:09 Pulse Oximetry 100 03/26/18 12:09 Oxygen Delivery Method Room Air 03/26/18 12:09 Oxygen Flow Rate 0 03/26/18 12:09 Lab/Test Results Lab/Test Results: Laboratory Tests Range/Units 03/26/18 12:50 WBC (4.4-10.8) k/cumm 6.49 RBC (4.00-5.20) m/cumm 4.33 Hgb (12.0-15.5) g/dL 14.3 Hct (36.0-46.0) % 41.6 MCV (80-95) fL 96.1 H MCH (27.0-33.0) pg 33.0 MCHC (32.0-36.0) g/dL 34.4 RDW (11.7-14.6) % 13.4 Plt Count (130-400) x1000/uL 190 MPV (8.0-11.0) fL 9.7 Immature Gran % 0.3 Neutrophils % 65.8 Lymphocytes % 26.3 Monocytes % 6.8 Eosinophils % 0.5 Basophils % 0.3 Absolute Neutrophils (1.2-6.7) k/cumm 4.27 Absolute Lymphocytes (1.2-3.4) k/cumm 1.71 Absolute Monocytes (0.11-0.7) k/cumm 0.44 Absolute Eosinophils (0.0-0.7) k/cumm 0.03 Absolute Basophils (0.0-0.2) k/cumm 0.02
[2018-03-26 13:19] LABS: ALT 30 U/L (12-78); AST 26 U/L (15-37); Albumin 4.1 g/dL (3.4-5.0); Alkaline Phosphatase 36 U/L (46-116); Anion Gap 12.7 mmol/L (3-11); BUN 7 mg/dL (7-18); Bilirubin, Total 0.5 mg/dL (0.2-1.0); CO2 25.3 mmol/L (21.0-32.0); CREATININE 0.78 mg/dL (0.55-1.02); Calcium 9.4 mg/dL (8.5-10.1); Chloride 103 mmol/L (98-107); Glucose 93 mg/dL (70-100); Potassium 3.6 mmol/L (3.5-5.1); Sodium 141 mmol/L (136-145); Total Protein 7.1 g/dL (6.4-8.2)
== END 2018-03-26 14:52 | disposition home or self-care (01) ==
PROVIDERS: Emergency Provider Student in an Organized Health Care Education/Training Program; PCP Nurse Practitioner Family
DX: G97.1 Other reaction to spinal and lumbar puncture (principal); Y84.4 Aspiration of fluid as the cause of abnormal reaction of the patient, or of later complication, without mention of misadventure at the time of the procedure; R55 Syncope and collapse
CPT/HCPCS: 36415; 64405; 80053; 93005; 96361; 96365; 96375; 99284; 85025; 93010; J0780; J1885; J2930

== ENCOUNTER 2018-04-21 10:19 | Emergency (ER) | payer BC, SELFPAY ==
[2018-04-21 11:18] VITALS: BP 128/62; PULSE 59; RESP 16; TEMP 36.6; O2SAT 100
--- NOTE | 2018-04-21 12:24 | DI.RAD_ITS ---
SYMPTOMS/DIAGNOSIS: ROTATIONAL INJURY RIGHT FOOT: Three views were obtained. No fracture seen.
--- NOTE | 2018-04-21 12:26 | ED.GENADUL_ITS ---
Discharge Plan Disposition Patient Disposition: HOME Condition: Fair Discharge Details Chief Complaint: Orthopedic Clinical Impression: Foot sprain Primary Care Provider: Ara Torres ED Provider: Tequila Magallon Home Meds and New Rx's Prescriptions: Continued valacyclovir [Valtrex] 1 gram tablet 1,000 mg PO DAILY Qty: 90 RF: 3 acetaminophen [Tylenol Extra Strength] 500 MG tablet 2 tab PO PRN Qty: 2 RF: 0 sertraline 100 MG tablet 200 mg PO DAILY RF: 0 ibuprofen 800 MG tablet 800 mg PO PRN PRNRF: 0 diazepam [Valium] 5 mg tablet 5 mg PO BID Qty: 8 RF: 0 cyclobenzaprine 10 mg Tablet 10 mg PO TID PRNRF: 0 Discharge Instructions Instructions: Foot Sprain (ED) Additional Instructions: Encourage rest, ice, elevation. Tylenol and/or ibuprofen as needed for disc omfort. Continue with the postoperative shoe as needed to help immobilize the foot and help with discomfort. If you develop new or worsening symptoms please follow-up in the emergency room again. Otherwise, please follow-up with primary care if pain is not improving over the next 1-2 weeks Referrals: Ara Torres [Primary Care Provider] - Discharge Data Discharge Date/Time-TO BE ENTERED AT DEPARTURE: 04/21/18 16:32 Medical Decision Making Patient is a 32-year-old female presenting today with chief complaint of right foot pain. She reports that when she awoke this morning, approximately an hour and a half prior to arrival, she stepped off of her bed and suffered a rotational injury to the right foot. Denies any altered sensation. Denies other injury at the time of the incident. Has pain along the distal aspect of the foot, particularly with weight applied to the area. On exam, she is a small area of ecchymosis between the base of the third and fourth toes. 2+ distal pulses. No swelling. Good range of motion of the ankle and toes. No pain over the proximal fifth metatarsal. Pain is maximal over the lateral aspect of the ball of the foot. We will give Tylenol and ibuprofen to help with discomfort. Will obtain imaging to evaluate for any bony abnormality. X-ray reviewed by myself as well as radiologist with no acute abnormality noted. Discussed these findings with the patient. Encouraged rest, ice, elevation. Tylenol and/or ibuprofen as needed for discomfort. Patient will be fitted with a postoperative shoe and extension pushing off from the ball the foot is from the pain is maximal and causing difficulty with ambulation. We discussed new/worsening symptoms when to seek care urgently once again. Advise follow-up with primary care in 1 week if not improving. All of her questions and concerns were addressed and she is in agreement this plan Patient fitted with post op shoe and was still having discomfort with ambulation. Fitted with crutches. Encouraged f/u with PCP. HPI General Mode of arrival: ambulatory . Date/Time Provider Initiated Documentation: 04/21/18 11:56 . Limitations to Documentation: no limitations . Information obtained by: patient and family . History of Present Illness 32 year old F presents to the emergency department with the chief complaint of right foot pain, described as moderate, with intensity rated at 6. Quality is described as aching, and is localized to the right and lower extremity. Patient reports no radiation. Patient started experiencing this hour(s) and it has been constant. Immobilization improves symptom(s), Movement worsens symptoms . Patient notes denies cough, fever/chills, rash, shortness of breath and weakness. Patient did receive the following treatments prior to arrival, none Related Data Home Medications Medication Instructions Recorded Confirmed acetaminophen [Tylenol Extra 2 tab PO PRN #2 07/07/12 03/26/18 Strength] ibuprofen 800 mg PO PRN PRN 12/14/14 03/26/18 sertraline 200 mg PO DAILY tab-cap 01/09/17 03/26/18 valacyclovir 1 gram tablet 1,000 mg PO DAILY #90 tab 02/05/18 03/26/18 diazepam [Valium] 5 mg PO BID #8 tab 03/17/18 03/26/18 cyclobenzaprine 10 mg PO TID PRN 03/23/18 03/26/18 Previous Rx's Medication Instructions Recorded valacyclovir 1 gram tablet 1,000 mg PO DAILY #90 tab 02/05/18 diazepam [Valium] 5 mg PO BID #8 tab 03/17/18 Allergies Allergy/AdvReac Type Severity Reaction Status Date / Time latex Allergy Intermediate SKIN RASH Unverified 04/21/18 11:22 amoxicillin Allergy Unverified 04/21/18 11:22 [place] And Derivatives Allergy Hives Unverified 04/21/18 11:22 diphenhydramine Allergy Hives Unverified 04/21/18 11:22 [From Benadryl] General Stated Complaint: Orthopedic SAMMI: 5 Review of Systems Constitutional Reports as per HPI, Denies chills, Denies fever(s), Denies headache(s) and Denies weakness ENT Denies headache(s) Cardiovascular Reports as per HPI Respiratory Reports as per HPI and Denies cough Musculoskeletal Reports as per HPI and Denies tingling Integumentary/Breasts Reports as per HPI, Denies rash and Denies wounds Neurologic Denies headache(s), Denies tingling and Denies weakness [facility] Medical History Recurrent genital herpes simplex type 2 infection (Chronic) Polymerase chain reaction DNA test positive for herpes simplex virus type 2 (Acute 03/20/17) Tobacco use (Chronic) Bacterial vaginosis (Resolved) Depression (Resolved) Contraceptive management Surgical History Ligation of fallopian tube (Acute 04/03/17) Social History number of children: 2 frequency: daily duration: 45-60 minutes/day Smoking/Tobacco Use Status: Current every day alcohol intake: current alcohol intake frequency: a few times a month Female Reproductive History Menstrual control method: permanent sterilization History History 3 Para Hx # Term Pregnancies 2 Multiple births Hx # Pregnancies Ectopic pregnancies AB induced Hx Number of Living Children AB spontaneous Exam Const General: cooperative, healthy appearing, comfortable, no acute distress, well developed and well groomed Nutritional Appearance: average body habitus and well nourished Orientation: alert and awake Resp Effort & Inspection: normal respiratory effort, able to speak in complete sentences and no respiratory distress Cardio Rate: regular rate Rhythm: regular rhythm Skin General skin exam: no rashes or lesions noted Lesions: no lesions Rashes: no rashes Trauma: no lacerations or abrasions Neuro General: alert and awake Cognition: normal cognition Speech: speech normal Gait: antalgic Motor: muscle tone normal throughout Sensory Exam: no sensory deficits noted Extrem Right lower extremity: full ROM, normal capillary refill, no joint enlargement, ankle Details: normal to inspection and foot Details: normal capillary refill, tenderness Location: of the dorsal foot and of the lateral foot, toes with normal ROM, no edema, ecchymosis and motor-sensory exam Details: light-touch normal; abnormal to inspection (ecchymosis as above), no unusual warmth, no abrasion, no laceration and no crepitus; abnormal to inspection (small ecchymotic area dorsum of foot) Psych Appearance: grossly normal and well kempt Mental Status: mental status grossly normal Speech and Movement: speech and movement normal Course Vital Signs Temperature 36.6 C 04/21/18 11:18 Pulse 59 L 04/21/18 11:18 Respiratory Rate 16 04/21/18 11:18 Blood Pressure 128/62 04/21/18 11:18 Pulse Oximetry 100 04/21/18 11:18 Temperature 36.6 C 04/21/18 11:18 Temperature Source Skin 04/21/18 11:18 Pulse 59 L 04/21/18 11:18 Respiratory Rate 16 04/21/18 11:18 Respiratory Effort 04/21/18 11:18 Blood Pressure 128/62 04/21/18 11:18 Pulse Oximetry 100 04/21/18 11:18 Oxygen Delivery Method Room Air 04/21/18 11:18 Oxygen Flow Rate 0 04/21/18 11:18 Pain Level 6 04/21/18 11:18
[2018-04-21] MEDS: Ibuprofen 600 MG TAB PO (12:44)
[2018-04-21] MEDS: Acetaminophen 500 MG TAB 1000 MG PO (12:44)
--- NOTE | 2018-04-21 14:32 | NUR.NOTE ---
patient fitted with ortho shoe and crutches, patient return demonstration successful Nursing Note:
== END 2018-04-21 16:32 | disposition home or self-care (01) ==
PROVIDERS: Emergency Provider Physician Assistant; PCP Nurse Practitioner Family
DX: S93.601A Unspecified sprain of right foot, initial encounter (principal); X50.9XXA Other and unspecified overexertion or strenuous movements or postures, initial encounter
CPT/HCPCS: 99283; 73630; 99282; E0114

== ENCOUNTER 2018-08-29 13:49 | Outpatient (REF) | payer BC, SELFPAY ==
[2018-09-01 12:30] LABS: Anion Gap 7.4 mmol/L (3-11); BUN 9 mg/dL (7-18); CO2 28.6 mmol/L (21.0-32.0); CREATININE 0.83 mg/dL (0.55-1.02); Calcium 9.7 mg/dL (8.5-10.1); Chloride 102 mmol/L (98-107); Glucose 85 mg/dL (70-100); Potassium 3.8 mmol/L (3.5-5.1); Sodium 138 mmol/L (136-145)
== END 2018-08-29 14:09 ==
LOC: NCHCN 13:49
PROVIDERS: PCP Family Medicine; Visit Provider Family Medicine
DX: R19.7 Diarrhea, unspecified (principal)
CPT/HCPCS: 80048; 85652; 85025

== ENCOUNTER 2018-08-30 12:14 | Outpatient (REF) | payer BC, SELFPAY ==
[2018-09-01 11:36] LABS: Campylobacter PCR SEE COMMENTS; Salmonella PCR SEE COMMENTS; Shiga Toxin PCR SEE COMMENTS; Shigella/Enteroinvasive Ecoli SEE COMMENTS
== END 2018-08-30 12:34 ==
LOC: NCHCN 12:14
PROVIDERS: PCP Family Medicine; Visit Provider Family Medicine
DX: R19.7 Diarrhea, unspecified (principal)
CPT/HCPCS: 87329; 87505; 83630; 87230

== ENCOUNTER 2018-09-03 17:28 | Outpatient (REF) | payer BC, SELFPAY ==
[2018-09-03 20:24] LABS: Abs Immature Grans 0.01 k/cumm (0.0-0.09); Absolute Basophil Count 0.04 k/cumm (0.0-0.2); Absolute Eosinophil Count 0.03 k/cumm (0.0-0.7); Absolute Lymphocyte Count 2.12 k/cumm (1.2-3.4); Absolute Neutrophil Count 3.91 k/cumm (1.2-6.7); Basophils % 0.6; Eosinophils % 0.5; HCT 42.6 % (36.0-46.0); HGB 14.6 g/dL (12.0-15.5); Immature Grans % 0.2; Lymphocytes % 32.6; Mean Corp. HGB Concentration 34.3 g/dL (32.0-36.0); Mean Corpuscular Hemoglobin 32.8 pg (27.0-33.0); Mean Corpuscular Volume 95.7 fL (80-95); Monocytes % 6.1; Platelet Count 193 x1000/uL (130-400); RBC 4.45 m/cumm (4.00-5.20); RBC Distribution Width 12.4 % (11.7-14.6); White Blood Cell Count 6.51 k/cumm (4.4-10.8)
[2018-09-03 21:36] LABS: ESR 6 MM/HR (0-20)
== END 2018-09-03 17:48 ==
LOC: NCHCN 17:28
PROVIDERS: PCP Family Medicine; Visit Provider Family Medicine
DX: R19.7 Diarrhea, unspecified (principal)
CPT/HCPCS: 85652; 85025

== ENCOUNTER 2018-11-16 20:29 | Emergency (ER) | payer BC, SELFPAY ==
[2018-11-16 20:41] VITALS: BP 114/65; PULSE 95; RESP 18; TEMP 36.6; O2SAT 98
--- NOTE | 2018-11-16 20:47 | ED.GENADUL_ITS ---
Discharge Plan Disposition Patient Disposition: HOME Condition: Good Discharge Details Chief Complaint: Urinary Clinical Impression: UTI (urinary tract infection) Primary Care Provider: Marianela Moeller ED Provider: Kobe Lucas Home Meds and New Rx's Prescriptions: New nitrofurantoin macrocrystal 100 mg capsule 100 mg PO BID Qty: 10 RF: 0 Continued valacyclovir [Valtrex] 1 gram tablet 1,000 mg PO DAILY Qty: 90 RF: 3 acetaminophen [Tylenol Extra Strength] 500 MG tablet 2 tab PO PRN Qty: 2 RF: 0 sertraline 100 MG tablet 200 mg PO DAILY RF: 0 ibuprofen 800 MG tablet 800 mg PO PRN PRNRF: 0 diazepam [Valium] 5 mg tablet 5 mg PO BID Qty: 8 RF: 0 cyclobenzaprine 10 mg Tablet 10 mg PO TID PRNRF: 0 Discharge Instructions Instructions: Urinary Tract Infection in Women (ED) Additional Instructions: You have a urinary tract infection. Please take the antibiotic as directed. You will be given the first dose here tonight. If you notice any worsening of your symptoms, or any new symptoms such as vomiting, diarrhea, fever, chills, shortness of breath, chest pain, numbness, weakness, or fainting , please return immediately to the emergency department for reevaluation. Please follow up with your primary care provider as soon as possible for reassessment and reevaluation. As always, it was a pleasure participating in your medical care today. Referrals: Marianela Moeller MD [Primary Care Provider] - Medical Decision Making This is a pleasant 33-year-old female who presents with signs and symptoms clinically consistent with a mild UTI. She has mild frequency and mild burning that started this morning. She did notice a small amount of blood tingeing. She has had UTIs in the past it felt similar to this. She denies any fever chills or flank pain. No red flags of fever, tachycardia, or signs of sepsis or pyelonephritis. We will get a urinalysis for culture and further evaluation. 9:13 PM Urinalysis does appear to be positive for signs and symptoms concerning for UTI. She does have moderate blood, and RBCs with WBCs, small leuk esterase. Symptom appear clinically inconsistent pyelonephritis, or kidney stone, and clinically consistent with mild UTI. We will give nitrofurantoin secondary to her allergy to amoxicillin. We discussed red flags which to return, importance of hydration and cranberry juice. I have extensively reviewed the treatment plan and discharge instructions with the patient. I have addressed all patient concerns at this time. The patient was made aware of what symptoms to monitor for that would warrant a return to the emergency department. Discussed the plan with the patient, they demonstrate verbal understanding and agreement with our assessment and plan at this time. HPI General Date/Time Provider Initiated Documentation: 11/16/18 20:31 . HPI Narrative: This is a pleasant 33-year-old female who presents today for evaluation of dysuria and increased urinary frequency that started today. She did have intercourse 2 days ago and did urinate after this. She did notice a small amount of blood in her urine tingeing her urine, but denies any vaginal discharge or vaginal bleeding. She denies any fever, chills, flank pain, abdominal pain or pelvic pain. She denies any nausea vomiting or diarrhea. She states that she has had a UTI in the past and this feels consistent with that. She denies any other complaints modifying factors. She denies any history of kidney stones peer Related Data Home Medications Medication Instructions Recorded Confirmed acetaminophen [Tylenol Extra 2 tab PO PRN #2 07/07/12 03/26/18 Strength] ibuprofen 800 mg PO PRN PRN 12/14/14 03/26/18 sertraline 200 mg PO DAILY tab-cap 01/09/17 03/26/18 valacyclovir 1 gram tablet 1,000 mg PO DAILY #90 tab 02/05/18 03/26/18 diazepam [Valium] 5 mg PO BID #8 tab 03/17/18 03/26/18 cyclobenzaprine 10 mg PO TID PRN 03/23/18 03/26/18 nitrofurantoin macrocrystal 100 mg PO BID #10 cap 11/16/18 Previous Rx's Medication Instructions Recorded valacyclovir 1 gram tablet 1,000 mg PO DAILY #90 tab 02/05/18 diazepam [Valium] 5 mg PO BID #8 tab 03/17/18 nitrofurantoin macrocrystal 100 mg PO BID #10 cap 11/16/18 Allergies Allergy/AdvReac Type Severity Reaction Status Date / Time latex Allergy Intermediate SKIN RASH Unverified 04/21/18 11:22 amoxicillin Allergy Unverified 04/21/18 11:22 [place] And Derivatives Allergy Hives Unverified 04/21/18 11:22 diphenhydramine Allergy Hives Unverified 04/21/18 11:22 [From Benadryl] General Stated Complaint: Urinary SAMMI: 4 Review of Systems Review of Systems All systems reviewed & are unremarkable except as noted in HPI and below PFSH Social History Smoking/Tobacco Use Status: Former Tobacco Use Alcohol Intake: current Alcohol Intake frequency: a few times a month Drug use: Socially Number of Children: 2 Duration: 45-60 minutes/day Frequency: daily Do you feel safe in your relationship?: Yes Female Reproductive History Menstrual control method: permanent sterilization History History 3 Para Hx # Term Pregnancies 2 Multiple births Hx # Pregnancies Ectopic pregnancies AB induced Hx Number of Living Children AB spontaneous Exam Narrative Exam Narrative: 1.Const: Well-nourished, Well-developed, appearing stated age 2.Eyes: PERRL, no conjunctival injection, and symmetrical lids. 3.ENT: Atraumatic external nose and ears. Moist MM. Neck: Symmetric, trachea midline, No thyromegaly. 4.CVS: +S1/S2, No murmurs or gallops. Peripheral pulses 2+ and equal in all extremities. Brisk capillary refill in all extremities. 5.RESP: Unlabored respiratory effort. Clear to auscultation bilaterally. No wheezes rales or rhonchi 6.GI: Soft, Nontender/Nondistended, No hepatosplenomegaly. No guarding or rebound. No flank or CVA tenderness, no abdominal or suprapubic tenderness. 7.MSK: Normocephalic/Atraumatic, Extremities w/o deformity or ttp No cyanosis or clubbing, Normal movement of all extremities 8.Skin: Warm, Dry. No rashes or lesions. 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 Sensation grossly intact, no focal neurologic deficits. 10.Psych: (AAO) x3. Appropriate mood and affect Course Vital Signs Temperature 36.6 C 11/16/18 20:41 Temperature 36.6 C 11/16/18 20:41 Pain Level 7 11/16/18 20:44
[2018-11-16 21:01] LABS: Bilirubin Negative (Negative); Blood Moderate (Negative); Clarity Cloudy (Clear); Glucose Negative (Negative); Ketones 15 mg/dL (Negative); Leukocyte Esterase Small (Negative); Nitrite Negative (Negative); Urobilinogen 0.2 EU/dL (Up TO 0.2); pH 5.5 (5-8)
[2018-11-16 21:11] LABS: Bacteria Many HPF (Negative); Casts Negative LPF (Negative); Crystals Negative HPF (Negative); Epithelial Cells Rare HPF (Negative); Mucus Negative (Negative); Other Cells Negative (Negative); RBC >50 (0-2); WBC >50 HPF (0-5)
[2018-11-16 21:12] LABS: C & S Indicated? C&S Done As Ordered
[2018-11-16] MEDS: Phenazopyridine 100 MG TAB PO (21:41)
[2018-11-16] MEDS: Nitrofurantoin Macrocrystal 50 MG CAP 100 MG PO (21:42)
== END 2018-11-16 21:44 | disposition home or self-care (01) ==
PROVIDERS: Emergency Provider Student in an Organized Health Care Education/Training Program; PCP Nurse Practitioner Family
DX: N39.0 Urinary tract infection, site not specified (principal); Z87.440 Personal history of urinary (tract) infections
CPT/HCPCS: 87077; 99283; 81003; 81015; 87086; 87186

== ENCOUNTER 2018-12-10 12:49 | Emergency (ER) | payer BC, SELFPAY ==
[2018-12-10 12:52] VITALS: BP 125/78; PULSE 77; RESP 16; TEMP 36.8; O2SAT 98
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
[2018-12-10] MEDS: Ibuprofen 600 MG TAB PO (13:29)
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
[2018-12-10 14:00] VITALS: BP 125/78; PULSE 77; RESP 16; TEMP 36.8; O2SAT 98
== END 2018-12-10 14:00 | disposition home or self-care (01) ==
PROVIDERS: Emergency Provider Emergency Medicine; PCP Nurse Practitioner Family
DX: S50.12XA Contusion of left forearm, initial encounter (principal); S80.02XA Contusion of left knee, initial encounter; Y04.0XXA Assault by unarmed brawl or fight, initial encounter; Y99.0 Civilian activity done for income or pay
CPT/HCPCS: 73562; 99284; 73090

== ENCOUNTER 2018-12-16 09:49 | Emergency (ER) | payer BC, SELFPAY ==
[2018-12-16 09:56] VITALS: BP 110/72; PULSE 65; RESP 16; TEMP 36.5
--- NOTE | 2018-12-16 11:04 | ED.GENADUL_ITS ---
Discharge Plan Disposition Patient Disposition: HOME Condition: Good Discharge Details Chief Complaint: GenMedical Clinical Impression: Seasonal allergies Primary Care Provider: Danisha Ozuna ED Provider: Thuan Greer Home Meds and New Rx's Prescriptions: No Action valacyclovir [Valtrex] 1 gram tablet 1,000 mg PO DAILY Qty: 90 RF: 3 acetaminophen [Tylenol Extra Strength] 500 MG tablet 2 tab PO PRN Qty: 2 RF: 0 sertraline 100 MG tablet 200 mg PO DAILY RF: 0 ibuprofen 800 MG tablet 800 mg PO PRN PRNRF: 0 lorazepam 0.5 mg Tablet 0.5 mg PO PRN PRNRF: 0 Discharge Instructions Instructions: Allergic Rhinitis (ED) Additional Instructions: Please use [id number] Zyrtec's and take as directed on packaging. Feel free to return to the emergency department for any new or worsening symptoms otherwise follow-up with your primary care provider. Referrals: Danisha Ozuna [Primary Care Provider] - (As needed for reassessment) Discharge Data Discharge Date/Time-TO BE ENTERED AT DEPARTURE: 12/16/18 11:30 Medical Decision Making Patient presenting to the emergency department for chief complaint of nasal congestion and sore throat. Patient states symptoms started about 6 days ago and have not improved. Patient denies any fever chills, nausea vomiting, or rash. Physical exam shows mild bilateral tonsillary erythema otherwise unremarkable exam. Plan to do rapid strep testing to rule out strep throat given that patient is presenting to emergency department with her daughter that has GI symptoms. Otherwise feel that etiology may be secondary to seasonal allergies or URI. Review of rapid strep testing shows negative result. Patient further questioned about allergies and she had noted her allergies to be worse this last year. Patient was encouraged to use Zyrtec or generic form to see if this will help with her symptoms. Return precautions discussed otherwise patient to follow-up with primary care provider. After discussion of diagnosis and plan of care patient has no further needs, questions, or concerns and states clear understanding to return to the emergency department for any worsening symptoms. HPI General Mode of arrival: ambulatory . Date/Time Provider Initiated Documentation: 12/16/18 09:59 . Limitations to Documentation: no limitations . Information obtained by: patient and RN notes reviewed . History of Present Illness 33 year old F presents to the emergency department with the chief complaint of Nasal congestion, sore throat, described as moderate, with intensity rated at 4. Quality is described as aching, and is localized to the mouth (Sore throat). Patient started experiencing this day(s) (6) and it has been constant. No relieving factors improve symptom(s), No exacerbating factors reported . Patient notes no other symptoms.. Patient did receive the following treatments prior to arrival, none Related Data Home Medications Medication Instructions Recorded Confirmed acetaminophen [Tylenol Extra 2 tab PO PRN #2 07/07/12 12/10/18 Strength] ibuprofen 800 mg PO PRN PRN 12/14/14 12/10/18 sertraline 200 mg PO DAILY tab-cap 01/09/17 12/10/18 valacyclovir 1 gram tablet 1,000 mg PO DAILY #90 tab 02/05/18 12/10/18 lorazepam 0.5 mg PO PRN PRN 12/10/18 12/10/18 Previous Rx's Medication Instructions Recorded valacyclovir 1 gram tablet 1,000 mg PO DAILY #90 tab 02/05/18 Allergies Allergy/AdvReac Type Severity Reaction Status Date / Time latex Allergy Intermediate SKIN RASH Unverified 12/10/18 12:55 amoxicillin Allergy Unverified 12/10/18 12:55 [place] And Derivatives Allergy Hives Unverified 12/10/18 12:55 diphenhydramine Allergy Hives Unverified 12/10/18 12:55 [From Benadryl] General Stated Complaint: GenMedical SAMMI: 4 Review of Systems Constitutional Denies body ache(s), Denies chills, Denies fever(s), Denies headache(s) and Denies malaise ENT Reports as per HPI, Denies ear discharge, Denies otalgia, Denies headache(s), Reports nasal congestion, Denies nasal discharge, Reports sinus pressure, Reports sore throat and Denies throat swelling Cardiovascular Denies chest pain and Denies dyspnea Respiratory Reports cough and Denies dyspnea Integumentary/Breasts Denies rash Neurologic Denies headache(s) Allergic/Immunologic Denies throat swelling [facility] Medical History Bacterial vaginosis (Resolved) Contraceptive management Depression (Resolved) Polymerase chain reaction DNA test positive for herpes simplex virus type 2 (Acute 03/20/17) Recurrent genital herpes simplex type 2 infection (Chronic) Tobacco use (Chronic) Surgical History Ligation of fallopian tube (Acute 04/03/17) Family History Father Myocardial infarction Social History Smoking/Tobacco Use Status: Never Alcohol Intake: current Alcohol Intake frequency: a few times a month Drug use: Socially Substance use type: does not use Number of Children: 2 Duration: 45-60 minutes/day Frequency: daily Do you feel safe at home: Yes Do you feel safe in your relationship?: Yes Female Reproductive History Menstrual control method: permanent sterilization History History 3 Para Hx # Term Pregnancies 2 Multiple births Hx # Pregnancies Ectopic pregnancies AB induced Hx Number of Living Children AB spontaneous Exam Const General: cooperative, comfortable and no acute distress Orientation: alert and awake HENKS Head: normal to inspection, normocephalic and atraumatic Ears: hearing grossly normal bilaterally, external ears normal and TM's normal bilaterally General nose exam: external nose normal Face and sinus: sinuses nontender and no erythema Mouth: oral mucosae normal, no drooling, no muffled voice and no trismus Throat: posterior oropharynx normal, uvula midline and abnormal tonsil bilaterally erythema; no exudates and no hypertrophy Neck Neck: normal visual inspection, full ROM, no lymphadenopathy, no meningeal signs, trachea midline and supple Resp Effort & Inspection: normal respiratory effort and able to speak in complete sen tences Auscultation: clear to auscultation bilaterally Cardio Rate: regular rate Rhythm: regular rhythm Heart Sounds: S1 normal, S2 normal, normal S1 and S2, no click, no gallops, no murmurs and no rubs Skin General skin exam: no rashes or lesions noted and dry skin (warm) Course Vital Signs Temperature 36.5 C 12/16/18 09:56 Pulse 65 12/16/18 09:56 Respiratory Rate 16 12/16/18 09:56 Blood Pressure 110/72 12/16/18 09:56 Temperature 36.5 C 12/16/18 09:56 Temperature Source Tympanic 12/16/18 09:56 Pulse 65 12/16/18 09:56 Respiratory Rate 16 12/16/18 09:56 Respiratory Effort Non-Labored 12/16/18 10:02 Respiratory Depth Normal 12/16/18 10:02 Respiratory Pattern Normal 12/16/18 10:02 Blood Pressure 110/72 12/16/18 09:56 Blood Pressure Position Sitting 12/16/18 09:56 Oxygen Delivery Method Room Air 12/16/18 09:56 Oxygen Flow Rate 0 12/16/18 09:56 Lab/Test Results Lab/Test Results: 12/16/18 10:50 Pharynx Streptococcus Screen (FERNANDO) - Pending POC Strep Test-FELIX(Rapid) Start: 12/16/18 10:33 Freq: .Rapid Strep Test Status: Active Protocol: Document 12/16/18 10:49 NAVNEET (Rec: 12/16/18 10:49 NAVNEET [email or web address]) Strep test-FELIX(Rapid)-POC POC-Strep test-FELIX (Rapid) Negative POC-Strep test-FELIX (Rapid) Negative
== END 2018-12-16 11:30 | disposition home or self-care (01) ==
PROVIDERS: Emergency Provider Nurse Practitioner Family; PCP Nurse Practitioner Family
DX: J30.2 Other seasonal allergic rhinitis (principal)
CPT/HCPCS: 87880; 99282; 87081

== ENCOUNTER 2019-01-16 09:13 | Outpatient (REF) | payer BC, SELFPAY ==
[2019-01-16 11:56] LABS: Iron 133 ug/dL (50-175); Total Iron Binding Capacity 320 ug/dL (250-450); Transferrin Sat 42 % (15-50)
[2019-01-16 12:50] LABS: Ferritin 61 ng/mL (8-388); TSH (W/Ref FT4) 1.58 uIU/mL (0.36-3.74)
[2019-01-19 07:56] LABS: Vitamin D 25 Total 27.7 ng/ml (30-100)
== END 2019-01-16 09:33 ==
LOC: NCHCN 09:13
PROVIDERS: PCP Nurse Practitioner Family; Visit Provider Nurse Practitioner Family
DX: R53.83 Other fatigue (principal)
CPT/HCPCS: 82306; 82728; 83540; 83550; 84443

== ENCOUNTER 2019-01-16 15:34 | Observation (INO) | payer BC, SELFPAY ==
[2019-01-16 15:46] VITALS: BP 118/73; PULSE 74; RESP 20; TEMP 36.9; O2SAT 100
[2019-01-16 16:15] LABS: Bilirubin Negative (Negative); Blood Negative (Negative); Clarity Clear (Clear); Glucose Negative (Negative); Ketones Negative (Negative); Leukocyte Esterase Negative (Negative); Nitrite Negative (Negative); Specific Gravity 1.015 (1.005-1.025); Urobilinogen 0.2 EU/dL (Up TO 0.2)
--- NOTE | 2019-01-16 16:30 | DI.CT_ITS ---
EXAM: CT ABDOMEN PELVIS W CLINICAL HISTORY: abdominal pain. TECHNIQUE: CT examination of the abdomen and pelvis was performed with intravenous infusion of 100 c c of Omnipaque 350 COMPARISON: No exams were available for comparison FINDINGS: Visualized lung bases appear normal. Liver spleen pancreas gallbladder and bile ducts are unremarkab le. Adrenals appear normal by a laterally. Abdominal aorta is of normal diameter and no major vascu lar abnormality is seen. No abdominal wall hernia. No abdominal or pelvic adenopathy. Magnetic Tape Typewriter Operator structur es appear intact. Small quantity of free pelvic fluid. Appendix is normal. No evidence of divertic ulitis or bowel obstruction. Kidneys appear normal with no hydronephrosis. Slight prominence of ure ters unlikely to be of clinical significance. No urinary tract calcifications seen IMPRESSION: No evidence of acute process
[2019-01-16] MEDS: Acetaminophen 500 MG TAB 1000 MG PO (16:51)
[2019-01-16 16:53] LABS: Abs Immature Grans 0.01 k/cumm (0.0-0.09); Absolute Basophil Count 0.04 k/cumm (0.0-0.2); Absolute Eosinophil Count 0.04 k/cumm (0.0-0.7); Absolute Lymphocyte Count 1.61 k/cumm (1.2-3.4); Absolute Monocyte Count 0.48 k/cumm (0.11-0.7); Absolute Neutrophil Count 3.17 k/cumm (1.2-6.7); Basophils % 0.7; Eosinophils % 0.7; HCT 39.9 % (36.0-46.0); HGB 13.9 g/dL (12.0-15.5); Immature Grans % 0.2; Lymphocytes % 30.1; Mean Corp. HGB Concentration 34.8 g/dL (32.0-36.0); Mean Corpuscular Hemoglobin 32.7 pg (27.0-33.0); Mean Corpuscular Volume 93.9 fL (80-95); Mean Platelet Volume 9.7 fL (8.0-11.0); Neutrophils % 59.3; Platelet Count 217 x1000/uL (130-400); RBC 4.25 m/cumm (4.00-5.20); RBC Distribution Width 11.9 % (11.7-14.6); White Blood Cell Count 5.35 k/cumm (4.4-10.8)
[2019-01-16] MEDS: Normal Saline 1,000 ML 1000 ML IV (16:53)
[2019-01-16 17:07] LABS: ALT 14 U/L (14-59); AST 15 U/L (15-37); Albumin 4.3 g/dL (3.4-5.0); Alkaline Phosphatase 33 U/L (46-116); Anion Gap 9.4 mmol/L (3-11); BUN 12 mg/dL (7-18); Bilirubin, Total 0.3 mg/dL (0.2-1.0); CO2 26.6 mmol/L (21.0-32.0); CREATININE 0.89 mg/dL (0.55-1.02); Calcium 9.4 mg/dL (8.5-10.1); Chloride 105 mmol/L (98-107); Glucose 87 mg/dL (70-100); Lipase 190 U/L (73-393); Potassium 3.9 mmol/L (3.5-5.1); Sodium 141 mmol/L (136-145); Total Protein 7.2 g/dL (6.4-8.2)
[2019-01-16] MEDS: Omnipaque 350 MG/ML 100 ML BTL IJ (17:22)
--- NOTE | 2019-01-16 17:31 | W.ED.GENAD ---
Discharge Plan Disposition Patient Disposition: [facility] INPATIENT Condition: Stable Discharge Details Chief Complaint: Abd Prob Clinical Impression: Abdominal pain Admit Date/Time: 01/16/19 22:44 Admit Provider: Gail Quiros Attending Provider: Gail Quiros Primary Care Provider: Danisha Ozuna ED Provider: Ksenia Ellis Discharge Instructions Instructions: Low Fat Diet (GEN), Laparoscopic Cholecystectomy (DC) Additional Instructions: -8-12 glasess H2O daily. soda/coffee do not count! -use tylenol or anti-acids for pain. -avoid fats in the diet is alfaro to avoiding pain! Healthy Foods for the Gallbladder ?Fresh fruits and vegetables ?Whole grains (whole-wheat bread, brown rice, oats, bran cereal) ?Lean meat, poultry, and fish ?Low-fat dairy product Foods to Avoid With Gallbladder Problems Researchers say many gallbladder symptoms stem from the modern Western diet, which is high in refined carbohydrates and saturated fats. If you're having symptoms from gallstones, it's because as your gallbladder tries to squeeze, some of the gallstone is blocking the outflow of bile that is stored in your gallbladder, [place] says. You're squeezing against a closed door, and that's why it hurts. If you eat fatty foods, that makes it squeeze more. Changing your diet won't get rid of gallstones that are already there, but eating a healthy, balanced variety of nutrients and limiting the amount of saturated fats and cholesterol-heavy foods you eat may help ease your symptoms. Try to avoid or limit these high-fat foods in your diet: ?Fried foods ?Highly processed foods (doughnuts, pie, cookies) ?Whole-milk dairy products (cheese, ice cream, butter) ?Fatty red meats -Pork products -fast foods -nuts/nut butters/butter/[place]/ creamy style salad dressings/gravies/[place] nothing to eat or drink Saturday after midnight. -Shower regularly before you come to the hospital. Don't wear any make-up or nail [place] -leave all rings/jewelry at home. All piercings need to be removed before surgery. -You will need to be at Hospital at 9am on Saturday morning. You will need to have someone drive you home and a responsible adult stay with you for 24 hrs after surgery. Forms: Nursing Discharge Form Referrals: Gail Quiros DO [OSTEOPATHIC DOCTOR] - 01/19/19 9:00 am Discharge Data Discharge Date/Time-TO BE ENTERED AT DEPARTURE: 01/16/19 22:50 Medical Decision Making 33-year-old very pleasant patient presents with periumbilical abdominal pain which began today persisted since and has been escalating. Radiation toward her back present. No associated nausea, vomiting or fever. This patient has unfortunately been struggling with diarrhea for the last 2 months reporting approximately 8 episodes of watery mucousy diarrhea. Patient has had stool cultures early in the course which were unremarkable. Patient also reports she was evaluated by GI doctor 2 days ago does have a plan for colonoscopy. Patient reports the pain she experienced beginning at 10 AM is unlike pain she is previously experienced and she does not typically have associated abdominal pain. Patient reports onset of pain at 10 periumbilical, escalating and persistent since. Fairly constant. Patient reports associated abdominal bloating. CT ordered with IV contrast which reveals constellation of inflammation in her lower abdomen including possible ruptured ovarian cyst, inflammatory bowel in the transverse colon, appendix in the upper limits of normal, free fluid in the cul-de-sac. Reexamination of the patient reveals an increase in abdominal tenderness and pain. More diffuse onset of abdominal pain, increase in severity of pain on palpation through the abdomen. Discussed this case with surgeon Dr. Quiros given patient's constellation of symptoms and CT scan recommends repeat CT scan with oral contrast for better identification of the bowel. Patient having increasing abdominal pain provided morphine 2 mg which was relieving of her pain. Zofran also provided. Dr. Quiros reviewed patient's CT with oral contrast does not see any remarkable abnormalities. Recommends admission for overnight observation. Repeat CBC sed rate and C-reactive protein ordered for trending. Patient agrees with plan of care of admission. Patient's pain well controlled with morphine. HPI General Date/Time Provider Initiated Documentation: 01/16/19 16:14. HPI Narrative: Patient presents for complaints of periumbilical abdominal pain. She reports onset of pain today while at work at approximately 10:00 AM. Patient denies injury or trauma to the abdomen. Patient reports a history of diarrhea which she is been struggling with approximately 8 episodes of diarrhea per day for last several months. Patient reports having initial stool cultures done several months ago. Patient reports she did see a GI specialist on Saturday, 2 days ago and plan of care includes colonoscopy pending. Patient denies fever, nausea, vomiting. Patient reports diarrhea which she has been experiencing has had mucous, denies blood. Patient reports no significant history of abdominal pain. Patient reports this abdominal pain that she has had since 10 AM it is atypical and new, accompanied by moderate bloating. Patient reports pain is sharp and constant with radiation to the middle of her back and lower back. Patient denies urinary urgency, frequency or dysuria. Patient denies vaginal discharge or bleeding. Patient does report she began metronidazole on Saturday for bacterial vaginosis. History of several bouts of bacterial vaginosis for which she is quite familiar. Patient reports her symptoms of BV entirely resolved after 24 hours on the yl. Patient reports she is tolerated this medication in the past. Patient denies drugs and alcohol. No other concerns or complaints at this time.. Patient's position of comfort is laying flat. Reports exacerbated by sitting upright. Related Data Home Medications Medication Instructions Recorded Confirmed acetaminophen [Tylenol Extra 2 tab PO PRN #2 07/07/12 01/16/19 Strength] ibuprofen 800 mg PO PRN PRN 12/14/14 01/16/19 sertraline 200 mg PO DAILY tab-cap 01/09/17 01/16/19 valacyclovir 1 gram tablet 1,000 mg PO DAILY #90 tab 02/05/18 01/16/19 lorazepam 0.5 mg PO PRN PRN 12/10/18 01/16/19 metronidazole 250 mg PO BID 01/16/19 01/16/19 Previous Rx's Medication Instructions Recorded valacyclovir 1 gram tablet 1,000 mg PO DAILY #90 tab 02/05/18 Allergies Allergy/AdvReac Type Severity Reaction Status Date / Time latex Allergy Intermediate SKIN RASH Unverified 01/16/19 15:50 amoxicillin Allergy Unverified 01/16/19 15:50 [place] And Derivatives Allergy Hives Unverified 01/16/19 15:50 diphenhydramine Allergy Hives Unverified 01/16/19 15:50 [From Benadryl] General Stated Complaint: Abd Prob SAMMI: 3 Review of Systems Review of Systems Narrative: CONSTITUTIONAL: The patient denies fevers, chills. EYES: Denies vision changes, blurry vision, or eye pain. ENT: Denies hearing changes, tinnitus, vertigo, sore throat. CARDIAC: Denies chest pain, SOB. RESPIRATORY: Denies cough, sputum. Denies difficulty breathing. GASTROINTESTINAL: abdominal pain. Denies vomiting or nausea. Diarrhea x2 months. Bloating present GENITOURINARY: Denies dysuria, or frequency of urination. MUSCULOSKELETAL: Denies Joint pain, gait changes. NEUROLOGIC: Denies headaches, Denies focal weakness. Denies numbness. INTEGUMENT: Denies rashes. PSYCHIATRIC: Denies behavior changes. Denies anxiety or depression. ENDOCRINOLOGY: Denies fatigue. PSYCHIATRY: Denies depression, agitation or anxiety limited [facility] Medical History Bacterial vaginosis (Resolved) Patient states onset 2013 after Mirena IUD placed. Recurrent episodes, patient has been treated with metronidazole on several occasions. Biliary colic (Acute) Contraceptive management Mirena IUD placed 2013. 12/2016 Mirena IUD removed. Patient counseled regarding permanent sterilization. Depression (Resolved) Sertraline 100 mg daily Gallstones without obstruction of gallbladder (Acute) Polymerase chain reaction DNA test positive for herpes simplex virus type 2 (Acute 03/20/17) Recurrent genital herpes simplex type 2 infection (Chronic) Initiated suppressive therapy 02/13 Tobacco use (Chronic) Surgical History Ligation of fallopian tube (Acute 04/03/17) Bilateral salpingectomy. Family History Father Myocardial infarction Social History Smoking/Tobacco Use Status: Never Alcohol Intake: current Alcohol Intake frequency: a few times a month Substance use type: does not use Number of Children: 2 Duration: 45-60 minutes/day Frequency: daily Do you feel safe at home: Yes Do you feel safe in your relationship?: Yes Female Reproductive History Menstrual control method: permanent sterilization History History 3 Para Hx # Term Pregnancies 2 Multiple births Hx # Pregnancies Ectopic pregnancies AB induced Hx Number of Living Children AB spontaneous Exam Narrative Exam Narrative: CONST: Healthy appearing patient, in no acute distress. Well hydrated. Alert and alert. HENMT: Head nomocephalic, normal to inspection. Atraumatic. Hearing grossly normal. EYES: General normal appearance. Alignment normal. Eyelids normal. Conjunctiva normal. NECK: Normal visual inspection. FROM. Trachea midline. No Midline tenderness. CHEST: Normal insepection of the chest. RESP: Normal respiratory effort. Speaking full sentences. No cough. No audible wheezing. No retractions. CARDIO: No JVD. Abdomen; abdominal pain with palpation most significant in the periumbilical area, wincing pain. No obvious rebound. No referred pain. Bowel sounds hyperactive in the lower quadrants. No suprapubic tenderness. No significant McBurney's point tenderness. MUSCULOSKELETAL: Normal Gait. FROM of all extremities. Back/spine: No cervical, thoracic pain with palpation. Mild lower back pain with palpation. No CVA tenderness. No obvious erythema or skin changes noted in the L-spine area. SKIN: Normal. Dry. No rashes. NEURO: Alert and awake. Speech clear. PSYCH: Normal affect. Cooperative. Course Vital Signs Vital signs: Vital Signs Temperature 36.9 C 01/16/19 15:46 Pulse 74 01/16/19 15:46 Respiratory Rate 20 01/16/19 15:46 Blood Pressure 118/73 01/16/19 15:46 Pulse Oximetry 100 01/16/19 15:46 Temperature 36.9 C 01/16/19 15:46 Temperature Source Temporal Artery Scan 01/16/19 15:46 Pulse 74 01/16/19 15:46 Respiratory Rate 20 01/16/19 15:46 Respiratory Effort Non-Labored 01/16/19 15:49 Blood Pressure 118/73 01/16/19 15:46 Blood Pressure Position Sitting 01/16/19 15:46 Pulse Oximetry 100 01/16/19 15:46 Oxygen Delivery Method Room Air 01/16/19 15:46 Oxygen Flow Rate 0 01/16/19 15:46 Pain Level 7 01/16/19 16:51 Lab/Test Results Lab/Test Results: Laboratory Tests Range/Units 01/16/19 01/16/19 01/16/19 16:04 16:44 16:44 WBC (4.4-10.8) k/cumm 5.35 RBC (4.00-5.20) m/cumm 4.25 Hgb (12.0-15.5) g/dL 13.9 Hct (36.0-46.0) % 39.9 MCV (80-95) fL 93.9 MCH (27.0-33.0) pg 32.7 MCHC (32.0-36.0) g/dL 34.8 RDW (11.7-14.6) % 11.9 Plt Count (130-400) x1000/uL 217 MPV (8.0-11.0) fL 9.7 Immature Gran % 0.2 Neutrophils % 59.3 Lymphocytes % 30.1 Monocytes % 9.0 Eosinophils % 0.7 Basophils % 0.7 Absolute Neutrophils (1.2-6.7) k/cumm 3.17 Absolute Lymphocytes (1.2-3.4) k/cumm 1.61 Absolute Monocytes (0.11-0.7) k/cumm 0.48 Absolute Eosinophils (0.0-0.7) k/cumm 0.04 Absolute Basophils (0.0-0.2) k/cumm 0.04 Sodium (136-145) mmol/L 141 Potassium (3.5-5.1) mmol/L 3.9 Chloride (98-107) mmol/L 105 Carbon Dioxide (21.0-32.0) mmol/L 26.6 Anion Gap (3-11) mmol/L 9.4 BUN (7-18) mg/dL 12 Creatinine (0.55-1.02) mg/dL 0.89 Estimated GFR/1.73 m2 (mL/min/1.73m2) >= 60.00 Glucose (70-100) mg/dL 87 Calcium (8.5-10.1) mg/dL 9.4 Total Bilirubin (0.2-1.0) mg/dL 0.3 AST (15-37) U/L 15 ALT (14-59) U/L 14 Alkaline Phosphatase (46-116) U/L 33 L Total Protein (6.4-8.2) g/dL 7.2 Albumin (3.4-5.0) g/dL 4.3 Lipase (73-393) U/L 190 Urine Color (Yellow) Yellow Urine Clarity (Clear) Clear Urine pH (5-8) 6.0 Ur Specific [place] (1.005-1.025) 1.015 Urine Protein (Negative) mg/dL Negative Urine Ketones (Negative) mg/dL Negative Urine Blood (Negative) Negative Urine Nitrite (Negative) Negative Urine Bilirubin (Negative) Negative Urine Urobilinogen (Up TO 0.2) EU/dL 0.2 Ur Leukocyte Esterase (Negative) Negative Urine Glucose (Negative) mg/dL Negative POC- Test(urine) Negative
[2019-01-16] MEDS: Ondansetron 4 MG/2 ML VIAL IVP (20:14)
[2019-01-16] MEDS: Omnipaque 350 MG/ML 50 ML BTL IJ (21:49)
[2019-01-16] MEDS: Breeza Beverage 473 ML BTL PO ×2 (21:50→21:51)
--- NOTE | 2019-01-16 21:59 | DI.CT_ITS ---
EXAM: CT ABDOMEN PELVIS WO CLINICAL HISTORY: abdominal pain. TECHNIQUE: A with oral and intravenous contrast enhanced CT examination of the abdomen and pelvis wa s carried out according to the usual protocol. COMPARISON: CT ABDOMEN PELVIS W from 01/16/2019 FINDINGS: The liver is normal. Stones are identified layering dependently in the gallbladder and outlined by ap parent vicariously excreted contrast within the gallbladder lumen. There is nothing to suggest acute cholecystitis. There is no evidence of biliary dilatation. The pancreas, spleen, and adrenals appea r normal. The kidneys appear intact. There is no evidence of nephro or ureterolithiasis. There is no evidence of bowel obstruction or mucosal thickening. The appendix is normal. A small quantity of free fluid is identified in the pelvic cul-de-sac and is nonspecific. There is no evidence of free a ir. There is no evidence of an abdominal aortic aneurysm. There is no evidence of lymphadenopathy. The bladder is intact. The reproductive organs as visualized are unremarkable. There is no acute bony abnormality. There is no evidence of a soft tissue abnormality. IMPRESSION: No evidence of an acute abdomen or pelvis. Note is made of cholelithiasis without evidence of acute c holecystitis. A trace quantity of free fluid in the pelvic cul-de-sac is likely of physiologic.
[2019-01-16] MEDS: Ondansetron 4 MG/2 ML VIAL (22:25)
--- NOTE | 2019-01-16 22:52 | W.PM.HP.N ---
Date of service: 01/16/19 Time of Service: 22:52 Assessment and Plan Assessment and plan (1) Biliary colic: Status: Acute (2) Gallstones without obstruction of gallbladder: Status: Acute Assessment and plan: : The patient will be scheduled for laparoscopic cholecystectomy. The alternatives to surgery, risks, complications, and the possible need to convert to open cholecystectomy were discussed. Also bleeding, infection, pneumonia, blood clots, complications of anesthesia, damage to bowel, bladder, blood vessels, or bile ducts, liver, need for blood transfusions. Also: chronic pain, chronic diarrhea, reoccurrence of signs and symptoms, port site hernias, adhesions. All questions were answered and the patient elected to proceed with surgery. Also d/w pt dietary restrictions and warning signs of when to go to ER. plan Friday 01/19 npo after midnight see d/c orders low fat diet -pt feels better today and is hungry. If tolerates low fat diet- d/c home stay on low fat diet until sx. no pork/fast foods/fried foods/diary History of Present Illness Consults Consult date: 01/16/19 Requesting physician: Ksenia Ellis Narrative: pt came into ED c/o abdominal pain. intial was periumbilical and now generalized. She has been having problems w/ water diarrhea for the past month. no bleeding. Shw saw GI adn was scheduled for CE. labs adn CT reviewed- unclear etiology for abdominal pain. no signs of appyor SBO. small ovarian cyst. Pt was kept overnight for hydration/anti emetics adn pain control for intractable abdominal pain without a distinct source. Assoc nausea and diarrhea. Pt states she has been having diarrhea off/on for about the past 8m. Also gets abdominal pain and bloating. Her diet is mostly fast food/fried foods. Every time she eats anything she gets abdominal pain and diarrhea. The pain is in the periumbilical region and radiates into the low back. She has 2 lg GS in gb. no thickened wall/edema/dilated ducts. no fever/elevated WBC. LFT's are nl. She has no problems w/ anethesia. Psx- tubal ligation. Review of Systems Review of Systems ROS Unobtainable: All systems reviewed & are unremarkable except as noted in HPI and below Constitutional Constitutional: Reports as per HPI, Reports system reviewed and no additional complaints, except as docu, Denies anorexia, Denies chills, Denies difficulty sleeping, Denies fatigue, Denies headache(s), Denies lethargy, Denies malaise, Denies poor appetite, Denies weakness, Denies weight gain and Denies weight loss Eyes Eyes: Reports as per HPI, Reports system reviewed and no additional complaints, except as docu and Denies change in vision ENT Ears, Nose, Mouth, and Throat: Reports system reviewed and no additional complaints, except as docu, Reports as per HPI, Denies change in voice, Denies dental pain, Denies dysphagia, Denies dizziness, Denies facial pain, Denies headache(s) and Denies odynophagia Cardiovascular Cardiovascular: Reports as per HPI, Reports system reviewed and no additional complaints, except as docu, Denies chest pain, Denies chest pain with activity, Denies syncope, Denies leg edema and Denies dyspnea Respiratory Respiratory: Reports as per HPI, Reports system reviewed and no additional complaints, except as docu, Denies chest congestion, Denies cough, Denies pain with cough and Denies dyspnea Gastrointestinal Gastrointestinal: Reports as per HPI, Reports system reviewed and no additional complaints, except as docu, Reports abdominal pain, Reports bloating, Denies change in bowel habits, Denies change in stool character, Denies constipation, Denies cramping, Denies dysphagia, Denies early satiety, Denies heartburn, Reports diarrhea, Reports nausea, Denies odynophagia and Denies vomiting Musculoskeletal Musculoskeletal: Reports system reviewed and no additional complaints, except as docu, Reports as per HPI, Denies abnormal gait, Denies arthralgias and Denies muscle weakness Integumentary/Breasts Skin/Breast: Reports system reviewed and no additional complaints, except as docu, Reports as per HPI, Denies changing lesions, Denies new lesions and Denies jaundice Neurologic Neurologic: Reports system reviewed and no additional complaints, except as docu, Reports as per HPI, Denies abnormal speech, Denies abnormal gait, Denies dizziness, Denies syncope, Denies headache(s), Denies memory loss and Denies weakness Psychiatric Psychiatric: Reports system reviewed and no additional complaints, except as docu, Reports as per HPI, Denies change in appetite and Denies memory loss Endocrine Endocrine: Denies fatigue, Denies polydipsia and Denies polyuria Hematologic/Lymphatic Hematologic/Lymphatic: Reports system reviewed and no additional complaints, except as docu, Denies easy bleeding and Denies easy bruising Allergic/Immunologic Allergic/Immunologic: Denies system reviewed and no additional complaints, except as docu, Reports as per HPI and Denies urticaria PFSH Medical History Bacterial vaginosis (Resolved) Patient states onset 2013 after Mirena IUD placed. Recurrent episodes, patient has been treated with metronidazole on several occasions. Biliary colic (Acute) Contraceptive management Mirena IUD placed 2013. 12/2016 Mirena IUD removed. Patient counseled regarding permanent sterilization. Depression (Resolved) Sertraline 100 mg daily Gallstones without obstruction of gallbladder (Acute) Polymerase chain reaction DNA test positive for herpes simplex virus type 2 (Acute 03/20/17) Recurrent genital herpes simplex type 2 infection (Chronic) Initiated suppressive therapy 02/13 Tobacco use (Chronic) Surgical History Ligation of fallopian tube (Acute 04/03/17) Bilateral salpingectomy. Family History Father Myocardial infarction Social History Smoking/Tobacco Use Status: Never Alcohol Intake: current Alcohol Intake frequency: a few times a month Substance use type: does not use Number of Children: 2 Duration: 45-60 minutes/day Frequency: daily Do you feel safe at home: Yes Do you feel safe in your relationship?: Yes Female Reproductive History Menstrual control method: permanent sterilization History History 3 Para Hx # Term Pregnancies 2 Multiple births Hx # Pregnancies Ectopic pregnancies AB induced Hx Number of Living Children AB spontaneous Meds Home Medications and Allergies Home Medications Medication Instructions Recorded Confirmed Type acetaminophen [Tylenol Extra 2 tab PO PRN #2 07/07/12 01/16/19 History Strength] ibuprofen 800 mg PO PRN PRN 12/14/14 01/16/19 History sertraline 200 mg PO DAILY tab-cap 01/09/17 01/16/19 History valacyclovir 1 gram tablet 1,000 mg PO DAILY #90 tab 10/10/18 09/20/19 Rx lorazepam 0.5 mg PO PRN PRN 12/10/18 01/16/19 History metronidazole 250 mg PO BID 01/16/19 01/16/19 History Allergies Allergy/AdvReac Type Severity Reaction Status Date / Time latex Allergy Intermediate SKIN RASH Unverified 01/16/19 15:50 amoxicillin Allergy Unverified 01/16/19 15:50 [place] And Derivatives Allergy Hives Unverified 01/16/19 15:50 diphenhydramine Allergy Hives Unverified 01/16/19 15:50 [From [facility]] Exam Const General: cooperative, healthy appearing, comfortable, no acute distress, well developed and well groomed Nutritional Appearance: average body habitus and well nourished Orientation: alert, awake and oriented x3 HENMT Head: normal to inspection, normocephalic and atraumatic Ears: hearing grossly normal bilaterally and external ears normal General nose exam: external nose normal Face and sinus: normal facial exam and sinuses nontender Mouth: oral mucosae normal, lip normal, tongue normal and moist mucous membranes Teeth and gingiva: dentition normal Eyes General: appearance normal, both eyes and all related structures Conjunctivae: conjunctivae normal Sclera: sclerae normal Pupils: PERRL Neck Neck: normal visual inspection and full ROM Chest Chest: normal inspection of the chest Resp Effort & Inspection: normal respiratory effort, able to speak in complete sentences, no cough, no nasal flaring, not tachypneic and no use of accessory muscles Auscultation: clear to auscultation bilaterally, no rales, no rhonchi and no wheezes Cardio Jugular venous pressure: no JVD Rate: regular rate Rhythm: regular rhythm GI Inspection: normal to inspection, no edema and non-distended Palpation: soft, no masses, tender and No ascites Auscultation: normal bowel sounds Other: epigastric/periumbilical pain. min today radiates strait through into the back. comes and goes in waves. asoc w/ nausea/distention/bloating. no wt loss. Abdomen image: 1. Skin General skin exam: no rashes or lesions noted Trauma: no lacerations or abrasions Neuro General: alert, oriented x3, oriented, gait normal, moves all extremities, no focal motor deficits and CN's II-XI intact bilaterally Cognition: normal cognition Speech: speech normal Gait: normal gait Motor: muscle tone normal throughout Extrem General: normal to inspection, full ROM and no clubbing, cyanosis or edema Psych Appearance: grossly normal and well kempt Mental Status: mental status grossly normal Speech and Movement: speech and movement normal Affect: normal affect Results Labs Result diagrams: 01/17/19 06:50 01/16/19 16:44 Labs: Laboratory Results - last 24 hr 01/16/19 01/16/19 01/16/19 16:04 16:44 16:44 WBC 5.35 RBC 4.25 Hgb 13.9 Hct 39.9 MCV 93.9 MCH 32.7 MCHC 34.8 RDW 11.9 Plt Count 217 MPV 9.7 Immature Gran % 0.2 Neutrophils % 59.3 Lymphocytes % 30.1 Monocytes % 9.0 Eosinophils % 0.7 Basophils % 0.7 Absolute Neutrophils 3.17 Absolute Lymphocytes 1.61 Absolute Monocytes 0.48 Absolute Eosinophils 0.04 Absolute Basophils 0.04 Sodium 141 Potassium 3.9 Chloride 105 Carbon Dioxide 26.6 Anion Gap 9.4 BUN 12 Creatinine 0.89 Estimated GFR/1.73 m2 >= 60.00 Glucose 87 Calcium 9.4 Total Bilirubin 0.3 AST 15 ALT 14 Alkaline Phosphatase 33 L Total Protein 7.2 Albumin 4.3 Lipase 190 Urine Color Yellow Urine Clarity Clear Urine pH 6.0 Ur Specific [place] 1.015 Urine Protein Negative Urine Ketones Negative Urine Blood Negative Urine Nitrite Negative Urine Bilirubin Negative Urine Urobilinogen 0.2 Ur Leukocyte Esterase Negative Urine Glucose Negative Last Vital Signs Temp 36.9 C 01/16/19 15:46 Pulse 74 01/16/19 15:46 Resp 20 01/16/19 15:46 BP 118/73 01/16/19 15:46 Pulse Ox 100 01/16/19 15:46
[2019-01-16 22:57] LABS: Abs Immature Grans 0.01 k/cumm (0.0-0.09); Absolute Basophil Count 0.05 k/cumm (0.0-0.2); Absolute Eosinophil Count 0.06 k/cumm (0.0-0.7); Absolute Monocyte Count 0.47 k/cumm (0.11-0.7); Absolute Neutrophil Count 3.43 k/cumm (1.2-6.7); Basophils % 0.8; Eosinophils % 0.9; HCT 39.2 % (36.0-46.0); HGB 13.6 g/dL (12.0-15.5); Immature Grans % 0.2; Lymphocytes % 36.4; Mean Corp. HGB Concentration 34.7 g/dL (32.0-36.0); Mean Corpuscular Hemoglobin 32.5 pg (27.0-33.0); Mean Corpuscular Volume 93.8 fL (80-95); Mean Platelet Volume 9.7 fL (8.0-11.0); Monocytes % 7.4; Neutrophils % 54.3; Platelet Count 200 x1000/uL (130-400); RBC 4.18 m/cumm (4.00-5.20); RBC Distribution Width 11.9 % (11.7-14.6); White Blood Cell Count 6.32 k/cumm (4.4-10.8)
[2019-01-16 23:05] LABS: C-Reactive Protein < 0.05 mg/dL (0.0-0.3); Lipase 133 U/L (73-393)
[2019-01-16 23:24] VITALS: BP 107/72; PULSE 55; RESP 19; O2SAT 97
[2019-01-16 23:28] VITALS: BP 107/72; PULSE 55; RESP 19; TEMP 36.3; O2SAT 97
[2019-01-16 23:39] LABS: ESR 7 mm/hr (0-20)
[2019-01-17] MEDS: Pantoprazole 40 MG VIAL IVP (01:43)
[2019-01-17] MEDS: Normal Saline Flush 10 ML SYR IVP (01:43)
[2019-01-17] MEDS: Lactated Ringers 1,000 ML 125 ML IV ×2 (01:43→09:59)
[2019-01-17] MEDS: ACETAMINOPHEN 1,000 MG/100 ML BTL 400 MG IVPB ×2 (01:43→09:44)
[2019-01-17 07:20] VITALS: BP 105/66; PULSE 64; RESP 16; TEMP 36.9; O2SAT 98
[2019-01-17 07:31] LABS: Abs Immature Grans 0.01 k/cumm (0.0-0.09); Absolute Basophil Count 0.05 k/cumm (0.0-0.2); Absolute Eosinophil Count 0.07 k/cumm (0.0-0.7); Absolute Lymphocyte Count 1.39 k/cumm (1.2-3.4); Absolute Monocyte Count 0.44 k/cumm (0.11-0.7); Absolute Neutrophil Count 1.91 k/cumm (1.2-6.7); Basophils % 1.3; Eosinophils % 1.8; HCT 39.6 % (36.0-46.0); HGB 13.5 g/dL (12.0-15.5); Immature Grans % 0.3; Lymphocytes % 35.9; Mean Corp. HGB Concentration 34.1 g/dL (32.0-36.0); Mean Corpuscular Hemoglobin 32.5 pg (27.0-33.0); Mean Corpuscular Volume 95.4 fL (80-95); Mean Platelet Volume 9.9 fL (8.0-11.0); Monocytes % 11.4; Neutrophils % 49.3; Platelet Count 198 x1000/uL (130-400); RBC 4.15 m/cumm (4.00-5.20); White Blood Cell Count 3.87 k/cumm (4.4-10.8)
--- NOTE | 2019-01-17 08:11 | PDOC.CMIN ---
- If Service Date Differs Date of service: 01/17/19 Time of Service: 08:11 Care Management Initial Assess REASON FOR HOSPITALIZATION:: Abdominal pain PAST MEDICAL HISTORY/PAST SURGICAL HISTORY:: Medical History : Bacterial vaginosis (Resolved). Patient states onset 2013 after Mirena IUD placed. Recurrent episodes, patient has been treated with metronidazole on several occasions. Contraceptive management. Mirena IUD placed 2013. 12/2016 Mirena IUD removed. Patient counseled regarding permanent sterilization. Depression (Resolved). Sertraline 100 mg daily. Polymerase chain reaction DNA test positive for herpes simplex virus type 2. Recurrent genital herpes simplex type 2 infection (Chronic). Initiated suppressive therapy 02/13. Tobacco use (Chronic). Surgical history: ligation of fallopian tube. Bilateral salpingectomy PREVIOUS FUNCTIONAL STATUS/SOCIAL/FAMILY SUPPORTS:: Laine lives in an apartment in [facility] with her 6 year old daughter. 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 She id independent with all care and activities. CURRENT FUNCTIONAL STATUS:: Laine was sitting up in bed when CM came to meet with her. She stated that she had been feeling a little better but that the pain returned when she drank a cup of coffee. She shared that Dr. Quiros was discharging her today and that she would return on Saturday for a laparoscopic chelecystectomy. She said she was happy that she figured out what was wrong and that it could be fixed. ADVANCE DIRECTIVES:: None on file Has patient been provided with information about the portal?: Yes Did the patient sign up for the portal?: Yes (previously) CODE STATUS:: Full Code INSURANCE COVERAGE / FINANCIAL ISSUES:: BS. Financial Assist 100 CURRENT HOME/COMMUNITY SERVICES/EQUIPMENT:: none PRIMARY CARE PHYSICIAN:: Danisha Ozuna POTENTIAL DISCHARGE NEEDS:: follow up with PCP, surgeon and discharge plan of care PATIENT/FAMILY EDUCATION NEEDS:: Discharge plan, limitations, follow up plan and Ask Me Three. ANTICIPATED BARRIERS TO DISCHARGE:: none TRANSPORTATION:: via private vehicle with friend PLAN:: Laine will be discharged home today with no new services. She will return on Saturday when she is scheduled to undergo a laparoscopic chelecystectomy. She will transport via private vehicle with a friend.
[2019-01-17 08:15] LABS: ESR 6 mm/hr (0-20)
--- NOTE | 2019-01-17 13:21 | W.PM.DS.N ---
Date of service: 01/17/19 Time of Service: 13:22 DS: Diagnosis Discharge Diagnosis (1) Gallstones without obstruction of gallbladder: Status: Acute (2) Biliary colic: Status: Acute Discharge Plan Disposition Patient Disposition: HOME Condition: Stable Discharge Details Chief Complaint: Abd Prob Clinical Impression: Abdominal pain Reason For Visit: ABDOMINAL PAIN Admit Date/Time: 01/16/19 22:44 Admit Provider: Gail Quiros Attending Provider: Gail Quiros Primary Care Provider: Danisha Ozuna ED Provider: Ksenia Ellis Home Meds and New Rx's Prescriptions: No Action valacyclovir [Valtrex] 1 gram tablet 1,000 mg PO DAILY Qty: 90 RF: 3 acetaminophen [Tylenol Extra Strength] 500 MG tablet 2 tab PO PRN Qty: 2 RF: 0 sertraline 100 MG tablet 200 mg PO DAILY RF: 0 ibuprofen 800 MG tablet 800 mg PO PRN PRNRF: 0 lorazepam 0.5 mg Tablet 0.5 mg PO PRN PRNRF: 0 metronidazole 250 mg Tablet 250 mg PO BID RF: 0 Discharge Instructions Instructions: Low Fat Diet (GEN), Laparoscopic Cholecystectomy (DC) Additional Instructions: -8-12 glasess H2O daily. soda/coffee do not count! -use tylenol or anti-acids for pain. -avoid fats in the diet is alfaro to avoiding pain! Healthy Foods for the Gallbladder ?Fresh fruits and vegetables ?Whole grains (whole-wheat bread, brown rice, oats, bran cereal) ?Lean meat, poultry, and fish ?Low-fat dairy product Foods to Avoid With Gallbladder Problems Researchers say many gallbladder symptoms stem from the modern Western diet, which is high in refined carbohydrates and saturated fats. If you're having symptoms from gallstones, it's because as your gallbladder tries to squeeze, some of the gallstone is blocking the outflow of bile that is stored in your gallbladder, Flaquito says. You're squeezing against a closed door, and that's why it hurts. If you eat fatty foods, that makes it squeeze more. Changing your diet won't get rid of gallstones that are already there, but eating a healthy, balanced variety of nutrients and limiting the amount of saturated fats and cholesterol-heavy foods you eat may help ease your symptoms. Try to avoid or limit these high-fat foods in your diet: ?Fried foods ?Highly processed foods (doughnuts, pie, cookies) ?Whole-milk dairy products (cheese, ice cream, butter) ?Fatty red meats -Pork products -fast foods -nuts/nut butters/butter/quintero/ creamy style salad dressings/gravies/avacado nothing to eat or drink Saturday after midnight. -Shower regularly before you come to the hospital. Don't wear any make-up or nail marshallese -leave all rings/jewelry at home. All piercings need to be removed before surgery. -You will need to be at Hospital at 9am on Saturday morning. You will need to have someone drive you home and a responsible adult stay with you for 24 hrs after surgery. Stand Alone Forms: Nursing Discharge Form Referrals: Gail Quiros, [OSTEOPATHIC DOCTOR] - Activity:: Activity as Tolerated Equipment/Supplies:: No Equipment Needed Diet:: see above Discharge Orders Discharge Orders: Discharge Order (Routine); Ordered 01/17/19 Ordered By: Gail Quiros DS: Summary Status at Discharge Functional status at discharge: independent ambulation Overall status at discharge: patient is back to baseline Mental Status: mental status grossly normal Speech and Movement: speech and movement normal Mood: congruent mood Affect: normal affect Exam Psych Mental Status: mental status grossly normal Speech and Movement: speech and movement normal Mood: congruent mood Affect: normal affect DS: Data Vitals/I&O Vitals and I&O: Vital Signs Temperature 36.9 C 01/17/19 07:20 Temperature Source Tympanic 01/17/19 07:20 Pulse 64 01/17/19 07:20 Pulse Rhythm Regular 01/17/19 09:05 Respiratory Rate 16 01/17/19 07:20 Respiratory Effort 01/17/19 09:05 Respiratory Depth Normal 01/17/19 09:05 Respiratory Pattern Normal 01/17/19 09:05 Blood Pressure 105/66 01/17/19 07:20 Blood Pressure Position Sitting 01/16/19 15:46 Pulse Oximetry 98 01/17/19 07:20 Oxygen Delivery Method Room Air 01/17/19 07:20 Oxygen Flow Rate 0 01/17/19 07:20 Pain Level 3 01/17/19 09:05 Intake & Output 01/16/19 01/17/1901/17/19 23:59 11:59 23:59 Intake Total 1000 / 1000 1120 / 1120 Output Total 900 / 900 Balance 1000 / 1000 220 / 220 Weight 75.75 kg Intake: IV 1000 / 1000 1120 / 1120 Output: Urine 900 / 900 Other: Urine Color Light Shelly Urine Appearance Clear Urine Odor Normal Data Completed and Pending Labs on day of discharge: Labs from last 24 hours 01/17/19 01/16/19 01/16/19 06:50 22:49 22:45 WBC 3.87 L D RBC 4.15 Hgb 13.5 Hct 39.6 MCV 95.4 H MCH 32.5 MCHC 34.1 RDW 12.0 Plt Count 198 MPV 9.9 Immature Gran % 0.3 Neutrophils % 49.3 Lymphocytes % 35.9 Monocytes % 11.4 Eosinophils % 1.8 Basophils % 1.3 Absolute Neutrophils 1.91 Absolute Lymphocytes 1.39 Absolute Monocytes 0.44 Absolute Eosinophils 0.07 Absolute Basophils 0.05 ESR 6 Sodium Potassium Chloride Carbon Dioxide Anion Gap BUN Creatinine Estimated GFR/1.73 m2 Glucose Calcium Total Bilirubin AST ALT Alkaline Phosphatase C-Reactive Protein Total Protein Albumin Lipase 133 Urine Color Urine Clarity Urine pH Ur Specific Ambia Urine Protein Urine Ketones Urine Blood Urine Nitrite Urine Bilirubin Urine Urobilinogen Ur Leukocyte Esterase Urine Glucose Stool Calprotectin Cancelled 01/16/19 01/16/19 01/16/19 22:45 22:45 16:44 WBC 6.32 5.35 RBC 4.18 4.25 Hgb 13.6 13.9 Hct 39.2 39.9 MCV 93.8 93.9 MCH 32.5 32.7 MCHC 34.7 34.8 RDW 11.9 11.9 Plt Count 200 217 MPV 9.7 9.7 Immature Gran % 0.2 0.2 Neutrophils % 54.3 59.3 Lymphocytes % 36.4 30.1 Monocytes % 7.4 9.0 Eosinophils % 0.9 0.7 Basophils % 0.8 0.7 Absolute Neutrophils 3.43 3.17 Absolute Lymphocytes 2.30 1.61 Absolute Monocytes 0.47 0.48 Absolute Eosinophils 0.06 0.04 Absolute Basophils 0.05 0.04 ESR 7 Sodium Potassium Chloride Carbon Dioxide Anion Gap BUN Creatinine Estimated GFR/1.73 m2 Glucose Calcium Total Bilirubin AST ALT Alkaline Phosphatase C-Reactive Protein < 0.05 Total Protein Albumin Lipase Urine Color Urine Clarity Urine pH Ur Specific Ambia Urine Protein Urine Ketones Urine Blood Urine Nitrite Urine Bilirubin Urine Urobilinogen Ur Leukocyte Esterase Urine Glucose Stool Calprotectin 01/16/19 01/16/19 16:44 16:04 WBC RBC Hgb Hct MCV MCH MCHC RDW Plt Count MPV Immature Gran % Neutrophils % Lymphocytes % Monocytes % Eosinophils % Basophils % Absolute Neutrophils Absolute Lymphocytes Absolute Monocytes Absolute Eosinophils Absolute Basophils ESR Sodium 141 Potassium 3.9 Chloride 105 Carbon Dioxide 26.6 Anion Gap 9.4 BUN 12 Creatinine 0.89 Estimated GFR/1.73 m2 >= 60.00 Glucose 87 Calcium 9.4 Total Bilirubin 0.3 AST 15 ALT 14 Alkaline Phosphatase 33 L C-Reactive Protein Total Protein 7.2 Albumin 4.3 Lipase 190 Urine Color Yellow Urine Clarity Clear Urine pH 6.0 Ur Specific Ambia 1.015 Urine Protein Negative Urine Ketones Negative Urine Blood Negative Urine Nitrite Negative Urine Bilirubin Negative Urine Urobilinogen 0.2 Ur Leukocyte Esterase Negative Urine Glucose Negative Stool Calprotectin [facility] Medical History (Updated 01/17/19 @ 13:22 by Gail Qiuros DO) Bacterial vaginosis (Resolved) Patient states onset 2013 after Mirena IUD placed. Recurrent episodes, patient has been treated with metronidazole on several occasions. Biliary colic (Acute) Contraceptive management Mirena IUD placed 2013. 12/2016 Mirena IUD removed. Patient counseled regarding permanent sterilization. Depression (Resolved) Sertraline 100 mg daily Gallstones without obstruction of gallbladder (Acute) Polymerase chain reaction DNA test positive for herpes simplex virus type 2 (Acute 03/20/17) Recurrent genital herpes simplex type 2 infection (Chronic) Initiated suppressive therapy 02/13 Tobacco use (Chronic) Surgical History Ligation of fallopian tube (Acute 04/03/17) Bilateral salpingectomy. Family History Father Myocardial infarction Social History Smoking/Tobacco Use Status: Never Alcohol Intake: current Alcohol Intake frequency: a few times a month Substance use type: does not use Number of Children: 2 Duration: 45-60 minutes/day Frequency: daily Do you feel safe at home: Yes Do you feel safe in your relationship?: Yes Female Reproductive History Menstrual control method: permanent sterilization History History 3 Para Hx # Term Pregnancies 2 Multiple births Hx # Pregnancies Ectopic pregnancies AB induced Hx Number of Living Children AB spontaneous
--- NOTE | 2019-01-17 14:38 | PDOC.CMDIS ---
- If Service Date Differs Date of service: 01/17/19 Time of Service: 14:38 LACE Index Scoring Tool - Questions: Length of Stay (in days): 1 Acuity (Admit via E.D.?): Yes E.D. Visits: 9 - Answers: Total Score: 8 Risk of Readmission: Low Risk Care Management Discharge Reason for Hospitalization: Abdominal pain Discharge Plan: Laine will be discharged home today with no new services. She will return on Saturday when she is scheduled to undergo a laparoscopic chelecystectomy. She will transport via private vehicle with a friend. Patient/Family Education Needs: Discharge plan, limitations, follow up plan and Ask Me Three.
== END 2019-01-17 15:05 | disposition home or self-care (01) ==
LOC: ER 22:42 → MS 23:26
PROVIDERS: Admitting Provider Surgery; Emergency Provider Physician Assistant; PCP Nurse Practitioner Family; Visit Provider Surgery
DX: K80.20 Calculus of gallbladder without cholecystitis without obstruction (principal); F17.210 Nicotine dependence, cigarettes, uncomplicated
CPT/HCPCS: 36415; 80053; 81025; 83690; 85652; 96361; 96374; 96375; 99222; 99238; 99285; 74176; 74177; 81003; 83993; 85025; 86140; 99284; G0378; J0131; J2405; J3490; Q9967

== ENCOUNTER 2019-01-19 08:50 | Day surgery (SDC) | payer BC, SELFPAY ==
[2019-01-19] VITALS (12 sets, daily range): BP systolic 97–131; BP diastolic 51–83; PULSE 65–95; RESP 12–20; TEMP 36.1–37.1; O2SAT 90–100
[2019-01-19] MEDS: Acetaminophen 500 MG TAB 1000 MG PO (09:15)
[2019-01-19] MEDS: Gabapentin 300 MG CAP PO (09:16)
[2019-01-19] MEDS: Lactated Ringers 1,000 ML 120 ML IV ×2 (09:16→11:30)
[2019-01-19] MEDS: CLINDAMYCIN 600 MG/50 ML BAG 100 MG IVPB (11:44)
--- NOTE | 2019-01-19 12:13 | GB_PTH ---
PATIENT: Laine Ham LOC: [facility] [id number]#:[id number] AGE/SX: 33/F ROOM: RE01/19/[address]: Gail Quiros : 1985 BED: DIS: 01/19/2019 SPEC #: [id number] RECD: 01/19/19 17:48 STATUS: ASHLYN REQ #: [id number] TITUS: 01/19/19 12:[address]: Gail Quiros DEPT: Surgical Specimen RECD BY: Kanchan Del Real ENTERED: 01/19/19 17:48 SP TYPE: GB OTHR DR: Danisha Ozuna Tissues: 1 - GALLBLADDER Procedures: GROSS AND MICRO LEVEL 3 Comments: [id number]
[2019-01-19] MEDS: Cellulose,Oxidized 4X8 1 PACKET MC (12:19)
--- NOTE | 2019-01-19 12:30 | PDOC.DSDIS_ITS ---
Discharge Plan Disposition Patient Disposition: HOME Condition: Good Discharge Details Reason For Visit: GALL STONES Attending Provider: Gail Quiros Primary Care Provider: Danisha Ozuna Home Meds and New Rx's Prescriptions: New ondansetron 4 mg tablet,disintegrating 4 mg PO Q6H PRN (Reason: nausea and vomiting) Qty: 4 RF: 0 tramadol 50 mg tablet 50 mg PO Q4H PRN (Reason: pain) Qty: 10 RF: 0 Continued valacyclovir [Valtrex] 1 gram tablet 1,000 mg PO DAILY Qty: 90 RF: 3 acetaminophen [Tylenol Extra Strength] 500 MG tablet 2 tab PO PRN Qty: 2 RF: 0 sertraline [Zoloft] 100 MG tablet 200 mg PO DAILY RF: 0 ibuprofen 800 MG tablet 800 mg PO PRN PRNRF: 0 lorazepam [Ativan] 0.5 mg Tablet 0.5 mg PO PRN PRNRF: 0 metronidazole 250 mg Tablet 250 mg PO BID RF: 0 Discharge Instructions Additional Instructions: Instructions After Gallbladder Surgery You should walk frequently, gradually, increasing the distance. You may climb stairs, just go slowly. You can take Advil 400mg 3 times a day with food for the first week for pain; you may take your prescription medication as prescribed-in addition to the Advil. Discontinue Advil if it hurts your stomach. Do not take Advil if you are intolerant to aspirin products or have stomach problems. Use an ice bag for the first 72 hours. This helps to decrease swelling, which causes pain. It is normal to be more sore/painful and swollen towards the end of the day and first thing in the morning. Gallbladder surgery can make you very nauseated; use zofran for nausea, for the first 24 hours. The nausea generally stops after 24 hours. Use milk of magnesia or prune juice to prevent constipation (this is a particular side effect of pain medication). Do not allow yourself to become constipated. Avoid fatty or greasy foods; introduce these slowly, with care, after about 1 month. Follow the low-fat diet sheet that will be given to you at the office or hospital. Start out eating very small, bland amounts of food. Do not take pain pills on an empty stomach. You can remove the band-aids and take a shower 24 hours after surgery. There will be some narrow strips of tape across your incisions (under the band- aids). DO NOT REMOVE THESE. It is all right if they get wet. They will be removed in the doctor?s office. Do not go swimming or sit in a hot tube for two weeks. Replace the band-aids with clean, dry ones or leave them off. There are no stitches to remove. Do not drive your car for one week and then only if you have no pain and can m ove freely. Do not drive if you are taking pain narcotic pain medications. You may resume sexual activity whenever pain and soreness subside Usually in 2 weeks. Do no lift anything over 5 lbs for the first 10 days. Minimize strenuous activity for the next two weeks. You may return to work in one week, or when you feel up to it. You should return to Dr. Quiros?s office for a post-op appointment about one week after surgery. My Medications for pain and nausea are: zofran and oxycodone When to Call the Office: If the incision becomes red or swollen, or there is more than a little drainage from it. If you develop a temperature higher than 100.5 F. If your eyes turn yellow Vomiting and can?t keep fluids down If you have any questions. GO TO THE EMERGENCY ROOM or CALL 911 for any chest pain or other medical emergency! This includes fainting, dizziness, or severe pain in the abdomen. Also, if you are unable to reach the office, you can always visit the emergency room for the more urgent things, and the surgeon cleaning validation consultant can be contacted. Activity:: see above Remove Dressings/Wound Care:: 24 hours Shower/Bathe:: 24 hours Diet:: low fat x 2 wks Discharge Orders Discharge Orders: Discharge Order (Routine); Ordered 01/19/19 Ordered By: Gail Quiros DS: Diagnosis Discharge Diagnosis (1) Gallstones without obstruction of gallbladder: Status: Acute (2) Biliary colic: Status: Acute
--- NOTE | 2019-01-19 12:36 | W.PM.OP ---
Date of service: 01/19/19 Time of Service: 12:36 Operative Note Operative Note DATE OF PROCEDURE: 01/19/19 PRE-OP DIAGNOSIS: acute on chronic josé w/ stones POST-OP DIAGNOSIS: same PROCEDURE: lap josé SURGEON: [facility] ATTENDANT: Leandra Gallardo ANESTHESIA: ZEB ESTIMATED BLOOD LOSS: 5 COMPLICATIONS: None Patient was transported to: PACU Patient's condition: stable Procedure Description: COMPLICATIONS: The patient tolerated the procedure without complication. INDICATIONS: came through the ED this weekend regarding acute on chronic cholecystitis, cholelithiasis and is here today for laparoscopic cholecystectomy. Informed consent was obtained, explaining risks and benefits of the procedure including but not limited to bleeding, infection, pneumonia, blood clots, possible damage to bowel, bladder, blood vessels, bile ducts, possible open procedure, complications of general anesthesia and other unforetold complications. PROCEDURE: The patient agrees and is brought to the operative room suite and placed in supine position. Anesthesia was administered per the Department of Anesthesia. The patient did receive IV antibiotics. NG tube and Talbert catheter are placed. The patient was prepped and draped in the usual sterile fashion using DuraPrep scrub solution. Pause for the cause was done. 20 mL of 1% buffered lidocaine was used for local anesthetization. A stab incision was made in the umbilicus and the Verres inserted. Drop test was positive and insufflation was begun. When 15 mm of pressure was noted on the monitor, the Veress was removed and #5 port inserted. The camera was inserted through the port and shows no damage to underlying structures. A 10 mm port was then placed in the epigastric position under direct visualization following creation of local field blocks as well as two 5 mm ports in the right upper quadrant. The gallbladder fundus was grasped and retracted towards the right shoulder. Infundibulum was grasped and retracted laterally. The hepat-duodenal ligament is entered. The cystic duct and artery are dissected out and the most inferior portion of the gallbladder plate is removed from the liver and the critical view of safety was obtained after clearing away all fatty material. Endo Clips were placed across the duct and artery and these structures are divided. The remainder of the gallbladder was excised from the liver bed. The gallbladder was placed in a bag and brought out. Examination of the gallbladder shows indeed the cystic duct and artery to have been divided. The remainder of the abdomen was copiously irrigated with a liter of saline. All saline is removed. There is no bleeding or bile leakage from the liver bed or the clips sites. The Jorge Luis-[place] needle was used to close the 10 mm port site with an 0 Vicryl. All ports and instruments are removed. Pneumoperitoneum is evacuated and the port sites are monitored to make sure there is no bleeding at the time of desufflation. Port sites are irrigated and the skin is closed with 4-0 Monocryl in a running subcuticular fashion. Steri tapes and sterile dressings are applied. The patient tolerated the procedure well without complications, transferred to the recovery room in stable condition. SAMANTHA WYNN, DO
[2019-01-19] MEDS: HYDROmorphone 2 MG/ML VIAL IVP ×2 (12:57→13:49)
[2019-01-19] MEDS: LORazepam 2 MG/ML VIAL 0.5 MG IVP (13:06)
[2019-01-19] MEDS: oxyCODONE 5 MG TAB PO (14:26)
== END 2019-01-19 16:25 | disposition home or self-care (01) ==
PROVIDERS: PCP Nurse Practitioner Family; Visit Provider Surgery
PROC: 0FT44ZZ Resection of Gallbladder, Percutaneous Endoscopic Approach (ICD-10-PCS; CPT 47562; principal; 2019-01-19 13:00)
DX: K80.10 Calculus of gallbladder with chronic cholecystitis without obstruction (principal)
CPT/HCPCS: 47562; 88304; J1100; J1885; J2060; J2250; J2405

== ENCOUNTER 2019-01-19 21:15 | Emergency (ER) | payer BC, SELFPAY ==
[2019-01-19 21:19] VITALS: BP 126/67; PULSE 107; RESP 26; TEMP 36.7; O2SAT 99
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
== END 2019-01-19 21:45 | disposition home or self-care (01) ==
PROVIDERS: Emergency Provider Physician Assistant; PCP Nurse Practitioner Family
DX: G89.18 Other acute postprocedural pain (principal)
CPT/HCPCS: 99282

== ENCOUNTER 2019-02-04 13:53 | Emergency (ER) | payer BC, SELFPAY ==
[2019-02-04 13:56] VITALS: BP 123/74; PULSE 80; RESP 16; TEMP 36.8; O2SAT 98
[2019-02-04 14:40] LABS: Bilirubin Negative (Negative); Blood Negative (Negative); Clarity Clear (Clear); Glucose Negative (Negative); Ketones Negative (Negative); Leukocyte Esterase Negative (Negative); Nitrite Negative (Negative); Urobilinogen 0.2 EU/dL (Up TO 0.2); pH 7.5 (5-8)
[2019-02-04] MEDS: Normal Saline 1,000 ML 1000 ML IV (14:40)
[2019-02-04 14:44] LABS: Abs Immature Grans 0.01 k/cumm (0.0-0.09); Absolute Basophil Count 0.05 k/cumm (0.0-0.2); Absolute Eosinophil Count 0.18 k/cumm (0.0-0.7); Absolute Lymphocyte Count 1.61 k/cumm (1.2-3.4); Absolute Monocyte Count 0.49 k/cumm (0.11-0.7); Absolute Neutrophil Count 4.04 k/cumm (1.2-6.7); Basophils % 0.8; Eosinophils % 2.8; HCT 39.7 % (36.0-46.0); HGB 13.9 g/dL (12.0-15.5); Immature Grans % 0.2; Lymphocytes % 25.2; Mean Corpuscular Hemoglobin 32.9 pg (27.0-33.0); Mean Corpuscular Volume 94.1 fL (80-95); Mean Platelet Volume 9.5 fL (8.0-11.0); Monocytes % 7.7; Neutrophils % 63.3; Platelet Count 247 x1000/uL (130-400); RBC 4.22 m/cumm (4.00-5.20); RBC Distribution Width 12.1 % (11.7-14.6); White Blood Cell Count 6.38 k/cumm (4.4-10.8)
[2019-02-04 15:06] LABS: ALT 18 U/L (14-59); Albumin 4.3 g/dL (3.4-5.0); Alkaline Phosphatase 47 U/L (46-116); Anion Gap 9.1 mmol/L (3-11); BUN 11 mg/dL (7-18); Bilirubin, Total 0.3 mg/dL (0.2-1.0); CO2 28.9 mmol/L (21.0-32.0); CREATININE 1.05 mg/dL (0.55-1.02); Calcium 9.2 mg/dL (8.5-10.1); Chloride 104 mmol/L (98-107); Glucose 88 mg/dL (70-100); Lipase 269 U/L (73-393); Potassium 3.8 mmol/L (3.5-5.1); Sodium 142 mmol/L (136-145); Total Protein 7.4 g/dL (6.4-8.2)
[2019-02-04 15:33] LABS: AST 15 U/L (15-37)
--- NOTE | 2019-02-04 16:15 | DI.CT_ITS ---
EXAM: CT ABDOMEN PELVIS W CLINICAL HISTORY: abdominal pain, s/p josé 01/19. TECHNIQUE: The exam was performed according to the usual protocol with IV contrast utilizing 100 cc of Omnipaque 350. COMPARISON: CT ABDOMEN PELVIS WO from 01/16/2019 FINDINGS: Patient is status post cholecystectomy since the previous exam. There is a small amount of fluid in the gallbladder fossa. There is no significant biliary dilatation or evidence of an abscess. The l iver shows normal perfusion. The spleen, pancreas, kidneys and adrenals are unremarkable. There is no bowel dilatation or inflammatory change. There is no free air or free fluid. The uterus, ovaries and bladder are unremarkable. The lung bases are clear. The appendix appears normal. IMPRESSION: Small amount of fluid in the cholecystectomy bed without evidence of abscess or biliary dilatation.
[2019-02-04] MEDS: Omnipaque 350 MG/ML 100 ML BTL IJ (16:17)
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
--- NOTE | 2019-02-04 17:16 | DI.VRAD_ITS ---
Addendum created by Saima Oleary MD on 02/04/2019 5:21:40 PM EDT The patient had an episode of bloody stool today. Upon further review, in addition to the small bowel wall prominence, there is some wall prominence to the ascending/proximal transverse colon on series 6 image 44. This could be related to under distention as well but should be correlated with any concern for colitis (infectious, inflammatory, or ischemic). THIS REPORT CONTAINS FINDINGS THAT MAY BE CRITICAL TO PATIENT CARE. The findings were verbally communicated via telephone conference with TRAVELER CHANGER Thuan Greer at 5:20 PM EDT on 02/04/2019. The findings were acknowledged and understood. Initial report created on 02/04/2019 5:15:43 PM EDT PROCEDURE INFORMATION: Exam: CT Abdomen And Pelvis With Contrast Exam date and time: 02/04/2019 4:13 PM Clinical history: 33 years old, female; Generalized; Prior surgery; Surgery date: <1 month; Surgery type: S/P josé 01/19; Patient HX: Patient sts pain after josé, severe abdominal pain. Blood in stool. TECHNIQUE: Imaging protocol: Computed tomography of the abdomen and pelvis with intravenous contrast. Radiation optimization: All CT scans at this facility use at least one of these dose optimization techniques: automated exposure control; mA and/or kV adjustment per patient size (includes targeted exams where dose is matched to clinical indication); or iterative reconstruction. Contrast material: OMNIPAQUE 350; Contrast volume: 100 ml; Contrast route: IV; COMPARISON: CT ABDOMEN PELVIS W 01/16/2019 5:17 PM FINDINGS: Lungs: Linear atelectasis or scarring at the lung bases. Liver: Normal. No mass. Gallbladder and bile ducts: Cholecystectomy. Mild intrahepatic ductal prominence which may be secondary to the patient's cholecystectomy status. However, correlation with lab values suggested. A 3.8 cm fluid collection (coronal image 33 series 4) is seen in the cholecystectomy bed. This measures greater than water density (26 Hounsfield units) and demonstrates some possible rim enhancement on image 30. Pancreas: Normal. No ductal dilation. Spleen: Normal. No splenomegaly. Adrenals: Normal. No mass. Kidneys and ureters: Too small to characterize hypodensity, right kidney. Right extrarenal pelvis. No hydronephrosis. Stomach and bowel: Heterogeneous contents in the stomach, favored to be related to ingested products. No obstruction. Some wall prominence to loops of small bowel in the left hemiabdomen, series 4 image 36. This is favored to be related to underdistention but should be correlated with any concern for enteritis. Moderate amount of stool in the colon which can be seen with constipation. Appendix: No evidence of appendicitis. Intraperitoneal space: Pelvic calcifications are unchanged. No free air. Small amount of free fluid in the pelvis. Vasculature: Unremarkable. No abdominal aortic aneurysm. Lymph nodes: Unremarkable. No enlarged lymph nodes. Bladder: Unremarkable as visualized. Reproductive: Heterogeneous uterus with a 2.2 cm 4 Hounsfield unit hypodensity, right ovary. Bones/joints: Unremarkable. No acute fracture. Soft tissues: Unremarkable. IMPRESSION: 1. Small 1.9 cm fluid collection in the cholecystectomy bed. This measures greater than water density and demonstrates possible rim enhancement. Differential possibilities include abscess or hematoma. A biloma is not entirely excluded, but this usually measures water density. Correlation suggested. 2. Mild intrahepatic ductal prominence. This may be secondary to the patient's cholecystectomy status. However, correlation with lab values ingested. 3. Heterogeneous uterus with a cystic structure in the right ovary. Small amount of free fluid in the pelvis. If there is thought to be a gynecologic source for the patient's pain, ultrasound is recommended. 4. Some wall prominence to loops of small bowel in the left hemiabdomen. This is favored to be related to underdistention but should be correlated with any concern for enteritis. Other findings/details as above. Dictated and Authenticated by: Saima Oleary MD. Ordering:CAMELIA Mccormack MD
--- NOTE | 2019-02-04 17:33 | W.PM.PROGNOT ---
Date of Service Date of service: 02/04/19 Time of Service: 17:33 Assessment and Plan Assessment and plan (1) S/P laparoscopic cholecystectomy: Status: Acute Assessment and plan: small fluid collection in GB fossa. 1.9cm. no fever or elevated WBC. no signif pain in RUQ. lower quad or lower back pain. uncertain of signif. Really don't feel this is an abscess- rather nl postOp/postSx changes. films were pushed to [facility]. (2) Diarrhea: Status: Acute (3) Tobacco use: Status: Acute Subjective Subjective Interval history since last seen: pt continues to have lower abdominal pain that radiates into back. She is midway thru menstrual cylce. She does have sm cyst on ovary and scant fluids in pelvic. She is having diarrhea. This could be c. diff and will check for that today. Could be increase in bile acids,vs IBS or celiac (she was midly + on celiac panel). She has CE scheduled w/ GI in [place] in feb. She should keep this appt. She says she has been having some drainage and foul odor from umbilicus. Incisions are c/d/i and well healed on exam today. She has no incisional pain or RUQ pain today. it is lower abdom. no headaches. No CP or SOB. no productive cough. no dysuria. no leg pain or swelling. no fever or chills. no vomting. no signif distention. I did review the CT personally. THere is a small fluid collection in the GB fossa. THis appears to be nl for postOP phase. labs are all nl. I will review w/ IR at [facility] in am. do not feel this represents a bile leak or abscess and will reabsorb on its own. I don't feel she needs abx We will check for C diff. most important- is going gluten free Exam Const General: cooperative, healthy appearing, comfortable, no acute distress, well developed and well groomed Nutritional Appearance: average body habitus and well nourished Orientation: alert, awake and oriented x3 HENMT Head: normal to inspection, normocephalic and atraumatic Ears: hearing grossly normal bilaterally and external ears normal General nose exam: external nose normal Face and sinus: normal facial exam and sinuses nontender Mouth: oral mucosae normal, lip normal, tongue normal and moist mucous membranes Teeth and gingiva: dentition normal Eyes General: appearance normal, both eyes and all related structures Conjunctivae: conjunctivae normal Sclera: sclerae normal Pupils: PERRL Neck Neck: normal visual inspection and full ROM Chest Chest: normal inspection of the chest Resp Effort & Inspection: normal respiratory effort, able to speak in complete sentences, no cough, no nasal flaring, not tachypneic and no use of accessory muscles Auscultation: clear to auscultation bilaterally, no rales, no rhonchi and no wheezes Cardio Jugular venous pressure: no JVD Rate: regular rate Rhythm: regular rhythm GI Inspection: normal to inspection, no edema, non-distended and incision (c/d/i. no R/D/S) Palpation: soft, no masses, tender (pain is in lower mid abdom region) and No ascites Auscultation: normal bowel sounds Skin General skin exam: no rashes or lesions noted Trauma: no lacerations or abrasions Neuro General: alert, oriented x3, oriented, gait normal, moves all extremities, no focal motor deficits and CN's II-XI intact bilaterally Cognition: normal cognition Speech: speech normal Gait: normal gait Motor: muscle tone normal throughout Extrem General: normal to inspection, full ROM and no clubbing, cyanosis or edema Psych Appearance: grossly normal and well kempt Mental Status: mental status grossly normal Speech and Movement: speech and movement normal Affect: normal affect Objective Objective Clinical Data: Abnormal lab results 02/04/19 Range/Units 14:40 Creatinine 1.05 H (0.55-1.02) mg/dL Vital Signs Temperature 36.8 C 02/04/19 13:56 Temperature Source Temporal Artery Scan 02/04/19 13:56 Pulse 80 02/04/19 13:56 Respiratory Rate 16 02/04/19 13:56 Respiratory Effort 02/04/19 14:02 Blood Pressure 123/74 02/04/19 13:56 Blood Pressure Position Sitting 02/04/19 13:56 Pulse Oximetry 98 02/04/19 13:56 Oxygen Delivery Method Room Air 02/04/19 13:56 Oxygen Flow Rate 0 02/04/19 13:56 Pain Level 4 02/04/19 13:56 Intake & Output 02/03/19 02/04/19 02/04/19 23:59 11:59 23:59 Weight 76.204 kg Laboratory Results WBC 6.38 k/cumm (4.4-10.8) 02/04/19 14:40 RBC 4.22 m/cumm (4.00-5.20) 02/04/19 14:40 Hgb 13.9 g/dL (12.0-15.5) 02/04/19 14:40 Hct 39.7 % (36.0-46.0) 02/04/19 14:40 MCV 94.1 fL (80-95) 02/04/19 14:40 MCH 32.9 pg (27.0-33.0) 02/04/19 14:40 MCHC 35.0 g/dL (32.0-36.0) 02/04/19 14:40 RDW 12.1 % (11.7-14.6) 02/04/19 14:40 Plt Count 247 x1000/uL (130-400) 02/04/19 14:40 MPV 9.5 fL (8.0-11.0) 02/04/19 14:40 Immature Gran % 0.2 02/04/19 14:40 Neutrophils % 63.3 02/04/19 14:40 Lymphocytes % 25.2 02/04/19 14:40 Monocytes % 7.7 02/04/19 14:40 Eosinophils % 2.8 02/04/19 14:40 Basophils % 0.8 02/04/19 14:40 Absolute Neutrophils 4.04 k/cumm (1.2-6.7) 02/04/19 14:40 Absolute Lymphocytes 1.61 k/cumm (1.2-3.4) 02/04/19 14:40 Absolute Monocytes 0.49 k/cumm (0.11-0.7) 02/04/19 14:40 Absolute Eosinophils 0.18 k/cumm (0.0-0.7) 02/04/19 14:40 Absolute Basophils 0.05 k/cumm (0.0-0.2) 02/04/19 14:40 Sodium 142 mmol/L (136-145) 02/04/19 14:40 Potassium 3.8 mmol/L (3.5-5.1) 02/04/19 14:40 Chloride 104 mmol/L (98-107) 02/04/19 14:40 Carbon Dioxide 28.9 mmol/L (21.0-32.0) 02/04/19 14:40 Anion Gap 9.1 mmol/L (3-11) 02/04/19 14:40 BUN 11 mg/dL (7-18) 02/04/19 14:40 Creatinine 1.05 mg/dL (0.55-1.02) H 02/04/19 14:40 Estimated GFR/1.73 m2 >= 60.00 (mL/min/1.73m2) 02/04/19 14:40 Glucose 88 mg/dL (70-100) 02/04/19 14:40 Calcium 9.2 mg/dL (8.5-10.1) 02/04/19 14:40 Total Bilirubin 0.3 mg/dL (0.2-1.0) 02/04/19 14:40 AST 15 U/L (15-37) 02/04/19 14:40 ALT 18 U/L (14-59) 02/04/19 14:40 Alkaline Phosphatase 47 U/L (46-116) 02/04/19 14:40 Total Protein 7.4 g/dL (6.4-8.2) 02/04/19 14:40 Albumin 4.3 g/dL (3.4-5.0) 02/04/19 14:40 Lipase 269 U/L (73-393) 02/04/19 14:40 Urine Color Yellow (Yellow) 02/04/19 14:30 Urine Clarity Clear (Clear) 02/04/19 14:30 Urine pH 7.5 (5-8) 02/04/19 14:30 Ur Specific [place] 1.020 (1.005-1.025) 02/04/19 14:30 Urine Protein Negative mg/dL (Negative) 02/04/19 14:30 Urine Ketones Negative mg/dL (Negative) 02/04/19 14:30 Urine Blood Negative (Negative) 02/04/19 14:30 Urine Nitrite Negative (Negative) 02/04/19 14:30 Urine Bilirubin Negative (Negative) 02/04/19 14:30 Urine Urobilinogen 0.2 EU/dL (Up TO 0.2) 02/04/19 14:30 Ur Leukocyte Esterase Negative (Negative) 02/04/19 14:30 Urine Glucose Negative mg/dL (Negative) 02/04/19 14:30
[2019-02-04 18:15] VITALS: BP 123/80; PULSE 71; RESP 16; TEMP 36.8; O2SAT 96
[2019-02-04] MEDS: Normal Saline Flush 10 ML SYR IVP (18:25)
== END 2019-02-04 18:25 | disposition home or self-care (01) ==
PROVIDERS: Physician Assistant; Emergency Provider Nurse Practitioner Family; PCP Nurse Practitioner Family
DX: G89.18 Other acute postprocedural pain (principal); R10.9 Unspecified abdominal pain
CPT/HCPCS: 36415; 80053; 81025; 83690; 96360; 96361; 99285; NC; 74177; 81003; 85025; 99284; J3490

== ENCOUNTER 2019-04-03 10:30 | Outpatient (REF) | payer BC, SELFPAY ==
--- NOTE | 2019-04-03 10:00 | PAPFT_PTH ---
PATIENT: Laine Ham LOC: [facility] U#:[id number] AGE/SX: 33/F ROOM: RE04/03/[address]: Danisha Ozuna : 1985 BED: DIS: 04/03/2019 SPEC #: [id number] RECD: 04/03/19 12:34 STATUS: ASHLYN REQ #: [id number] TITUS: 04/03/19 10:[address]: Danisha Ozuna DEPT: [facility] Cytology RECD BY: Kanchan Del Real Tissues: 1 - CX/ENDOCX FOR PAP SMEARS Procedures: PAP THIN PREP/UVM Screening HPV DNA PROBE Comments: [id number]
== END 2019-04-03 10:50 ==
LOC: NCHCN 10:30
PROVIDERS: PCP Nurse Practitioner Family; Visit Provider Nurse Practitioner Family
DX: Z00.00 Encounter for general adult medical examination without abnormal findings (principal); Z12.4 Encounter for screening for malignant neoplasm of cervix; Z11.51 Encounter for screening for human papillomavirus (HPV)
CPT/HCPCS: 88142; 87624

== ENCOUNTER 2019-06-12 22:09 | Emergency (ER) | payer BC, SELFPAY ==
[2019-06-12 22:14] VITALS: BP 142/77; PULSE 79; RESP 16; TEMP 36.4; O2SAT 98
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
[2019-06-12] MEDS: Clindamycin 150 MG CAP PO (22:24)
== END 2019-06-12 22:34 | disposition home or self-care (01) ==
LOC: ER 22:33
PROVIDERS: Emergency Provider Registered Nurse Emergency; PCP Nurse Practitioner Family
DX: L03.032 Cellulitis of left toe (principal)
CPT/HCPCS: 99283

== ENCOUNTER 2019-07-27 16:30 | Outpatient (REF) | payer BC, SELFPAY ==
[2019-07-29 17:03] LABS: COVID-19 RT-PCR Result Not Detected (NotDetected)
== END 2019-07-27 16:50 ==
LOC: NCHCN 16:30
PROVIDERS: PCP Nurse Practitioner Family; Visit Provider Nurse Practitioner Family
DX: Z20.828 Contact with and (suspected) exposure to other viral communicable diseases (principal); J06.9 Acute upper respiratory infection, unspecified
CPT/HCPCS: U0003

== ENCOUNTER 2019-11-03 11:28 | Emergency (ER) | payer MEDICAID, SELFPAY ==
[2019-11-03] VITALS (42 sets, daily range): BP systolic 94–148; BP diastolic 53–78; PULSE 48–92; RESP 9–28; TEMP 37.6; O2SAT 96–100
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
--- NOTE | 2019-11-03 12:15 | RT.EKG_ITS ---
APPROVED REPORT Exam: Resting ECG Patient Location: E HR:68 bpm ECG Measurements Heart Rate 68 AXIS AL 98 P 11 QRSd 102 QRS 54 QT 384 T 29 QTc 409 <Conclusion> Sinus rhythm...normal P axis, V-rate 60- 99. ] No acute ST ischemic changes. I have reviewed and interpreted ECG and agree with software generated interpretation.
[2019-11-03] MEDS: Normal Saline 1,000 ML 1000 ML IV ×2 (12:20→13:39)
[2019-11-03 12:29] LABS: Abs Immature Grans 0.01 k/cumm (0.0-0.09); Absolute Basophil Count 0.02 k/cumm (0.0-0.2); Absolute Eosinophil Count 0.06 k/cumm (0.0-0.7); Absolute Monocyte Count 0.32 k/cumm (0.11-0.7); Absolute Neutrophil Count 1.68 k/cumm (1.2-6.7); Basophils % 0.6; Eosinophils % 1.8; HCT 40.3 % (36.0-46.0); HGB 13.5 g/dL (12.0-15.5); Immature Grans % 0.3 %; Lymphocytes % 36.5; Mean Corp. HGB Concentration 33.5 g/dL (32.0-36.0); Mean Corpuscular Hemoglobin 32.5 pg (27.0-33.0); Mean Corpuscular Volume 97.1 fL (80-95); Mean Platelet Volume 9.4 fL (8.0-11.0); Monocytes % 9.7; Neutrophils % 51.1; Platelet Count 228 x1000/uL (130-400); RBC 4.15 m/cumm (4.00-5.20); RBC Distribution Width 12.8 % (11.7-14.6); White Blood Cell Count 3.29 k/cumm (4.4-10.8)
[2019-11-03] MEDS: Ondansetron 4 MG/2 ML VIAL IVP (12:31)
[2019-11-03] MEDS: Ketorolac 30 MG/ML VIAL IVP (12:40)
[2019-11-03 12:46] LABS: Bilirubin Negative (Negative); Blood Negative (Negative); Clarity Cloudy (Clear); Glucose Negative (Negative); Ketones Negative (Negative); Leukocyte Esterase Negative (Negative); Nitrite Negative (Negative); Specific Gravity 1.025 (1.005-1.025); Urobilinogen 0.2 EU/dL (Up TO 0.2)
[2019-11-03 12:54] LABS: ALT 35 U/L (14-59); AST 26 U/L (15-37); Albumin 4.2 g/dL (3.4-5.0); Alkaline Phosphatase 35 U/L (46-116); Anion Gap 5.7 mmol/L (3-11); BUN 10 mg/dL (7-18); Bilirubin, Total 0.8 mg/dL (0.2-1.0); CO2 27.3 mmol/L (21.0-32.0); CREATININE 0.79 mg/dL (0.55-1.02); Calcium 9.2 mg/dL (8.5-10.1); Chloride 102 mmol/L (98-107); Glucose 96 mg/dL (74-106); Lipase 113 U/L (73-393); Potassium 3.7 mmol/L (3.5-5.1); Sodium 135 mmol/L (136-145)
--- NOTE | 2019-11-03 14:15 | DI.CT_ITS ---
EXAM: CT HEAD WO CLINICAL HISTORY: diffuse headache, r/o acute process. TECHNIQUE: Imaging Protocol: Axial computed tomography images with coronal and sagittal reformatted images were created and reviewed COMPARISON: No exams were available for comparison FINDINGS: Ventricles and Extra axial spaces: Normal in size and morphology for the patient's age. Hemorrhage: None. Cerebral parenchyma: Normal. Midline shift: None. Brainstem/Cerebellum: Normal. Calvarium: Normal. Visualized Paranasal sinuses/Mastoids: Clear. Soft Tissues: Unremarkable. IMPRESSION: No acute intracranial process. RADIATION DOSE DELIVERED: Total DLP DATA REPOSITORY: All CT scans at this facility are submitted to the National Radiology Data Registry (NRDR) Dose Index Registry (DIR) with the [employer] (ACR). RADIATION OPTIMIZATION: All CT scans at this facility use at least one of these dose optimization te chniques: automated exposure control; mA and/or kV adjustment per patient size (includes targeted exa ms where dose is matched to clinical indication); or iterative reconstruction.
[2019-11-03] MEDS: Prochlorperazine 10 MG/2 ML VIAL IVP (14:34)
[2019-11-03] MEDS: ACETAMINOPHEN 1,000 MG/100 ML BTL 400 MG IVPB (14:35)
[2019-11-03] MEDS: Dexamethasone 10 MG/ML VIAL IVP (14:35)
[2019-11-07 02:05] LABS: SARS-CoV-2 RNA Undetected (Undetected); SARS-CoV-2 Specimen Source Nasopharynx
--- NOTE | 2019-11-07 08:17 | NUR.NOTE ---
Nursing Note: 0811-left message to call er---0816 Laine called back and Negative result given--states still has some dizzines and is planning to make appt with pcp--advised to return to er if getting worse or new concerns develop.--pt ageeable to this.
== END 2019-11-03 17:04 | disposition home or self-care (01) ==
PROVIDERS: Emergency Provider Physician Assistant; PCP Nurse Practitioner Family
DX: R51 Headache (principal); R11.10 Vomiting, unspecified; R19.7 Diarrhea, unspecified; E86.0 Dehydration; M79.10 Myalgia, unspecified site; Z11.59 Encounter for screening for other viral diseases; Z98.51 Tubal ligation status; R43.2 Parageusia
CPT/HCPCS: 80053; 81025; 83690; 93005; 96361; 96365; 96366; 96375; 99285; U0003; 70450; 81003; 85025; 93010; 99284; J0131; J0780; J1100; J1885; J2405

== ENCOUNTER 2019-11-27 02:57 | Outpatient (CLI) | payer MEDICAID, SELFPAY ==
--- NOTE | 2019-11-27 13:23 | DI.US_ITS ---
EXAM: US AXILLA RT CLINICAL HISTORY: MOVABLE LUMP RT ARMPIT,R22.9 TECHNIQUE: Ultrasound right axilla performed using standard protocol. COMPARISON: No exams were available for comparison FINDINGS: The palpable abnormality corresponds to a 13 x by 5 x 8 millimeter circumscribed ovoid lesion with a central fatty hilum and hilar vascularity, consistent a lymph node. There are no suspicious feature s. IMPRESSION: Palpable abnormality appears to correspond to a normal appearing lymph node. DATA REPOSITORY:
== END 2019-11-27 03:17 ==
PROVIDERS: PCP Nurse Practitioner Family; Visit Provider Nurse Practitioner Family
DX: R22.31 Localized swelling, mass and lump, right upper limb (principal)
CPT/HCPCS: 76642

== ENCOUNTER 2020-01-18 18:23 | Outpatient (REF) | payer MEDICAID, SELFPAY ==
[2020-01-21 17:40] LABS: Patient Race White; SARS-CoV-2 RNA Undetected (Undetected); SARS-CoV-2 Specimen Source Nasal
== END 2020-01-18 18:43 ==
LOC: NCHCN 18:23
PROVIDERS: PCP Nurse Practitioner Family; Visit Provider Nurse Practitioner Family
DX: R50.9 Fever, unspecified (principal); R06.02 Shortness of breath
CPT/HCPCS: U0003

== ENCOUNTER 2020-01-19 10:42 | Outpatient (CLI) | payer MEDICAID, SELFPAY ==
--- NOTE | 2020-01-19 | DI.RAD_ITS ---
EXAM: XR CHEST 2V PA LATERAL CLINICAL HISTORY: SOB, R06.02, FEVER, R50.9 TECHNIQUE: 2D digital imaging was performed. COMPARISON: No exams were available for comparison FINDINGS: MEDIASTINUM: Normal. HEART: Normal. PULMONARY VASCULATURE: Normal. LUNGS: Clear. PLEURAL SPACE: No pleural effusion or pneumothorax. BONE:Within normal limits for the patient's age. OTHER FINDINGS:Normal. IMPRESSION: No acute pulmonary findings. DATA REPOSITORY: RADIATION DOSE DELIVERED:
== END 2020-01-19 11:02 ==
PROVIDERS: PCP Nurse Practitioner Family; Visit Provider Nurse Practitioner Family
DX: R06.02 Shortness of breath (principal); R50.9 Fever, unspecified
CPT/HCPCS: 71046

== ENCOUNTER 2020-02-12 14:00 | Outpatient (REF) | payer MEDICAID, SELFPAY ==
[2020-02-12 19:06] LABS: Abs Immature Grans 0.01 10^3/uL (0.0-0.06); Absolute Basophil Count 0.04 10^3/uL (0.0-0.2); Absolute Eosinophil Count 0.06 10^3/uL (0.0-0.7); Absolute Monocyte Count 0.35 10^3/uL (0.1-0.8); Absolute Neutrophil Count 2.11 10^3/uL (1.2-6.7); Eosinophils % 1.6; HCT 40.3 % (36.0-46.0); HGB 13.6 g/dL (11.2-15.7); Immature Grans % 0.3; Lymphocytes % 33.6; MCH 32.4 pg (27.0-33.0); MCHC 33.7 % (32.0-36.0); MPV 10.9 fL (8.0-11.0); Neutrophils % 54.5; Nucleated RBC 0 %; Platelet Count 205 10^3/uL (130-400); RDW 11.8 % (11.7-14.6); RDW-SD 41.1 fL; WBC 3.87 10^3/uL (4.4-10.8)
[2020-02-12 19:31] LABS: TSH (W/Ref FT4) 1.28 uIU/mL (0.36-3.74)
== END 2020-02-12 14:20 ==
LOC: NCHCN 14:00
PROVIDERS: PCP Nurse Practitioner Family; Visit Provider Nurse Practitioner Family
DX: R61 Generalized hyperhidrosis (principal)
CPT/HCPCS: 84443; 85025

== ENCOUNTER 2020-04-01 21:14 | Outpatient (REF) | payer MEDICAID, SELFPAY ==
[2020-04-05 10:09] LABS: COVID-19 RT-PCR Result NEGATIVE (Negative)
== END 2020-04-01 21:34 ==
LOC: NCHCN 21:14
PROVIDERS: PCP Nurse Practitioner Family; Visit Provider Physician Assistant Medical
DX: J06.9 Acute upper respiratory infection, unspecified (principal)
CPT/HCPCS: U0003

== ENCOUNTER 2020-04-04 13:49 | Emergency (ER) | payer MEDICAID, SELFPAY ==
[2020-04-04] VITALS (31 sets, daily range): BP systolic 94–129; BP diastolic 57–84; PULSE 52–87; RESP 10–30; TEMP 36.4–37.7; O2SAT 95–100
--- NOTE | 2020-04-04 14:00 | DI.CT_ITS ---
EXAM: CT HEAD WO CLINICAL HISTORY: headache. TECHNIQUE: Imaging Protocol: Axial computed tomography images with coronal and sagittal reformatted images were created and reviewed COMPARISON: CT CT HEAD WO from 11/03/2019 FINDINGS: There are no skull fractures nor fluid in the visualized paranasal sinuses. There is no evidence of intracranial hemorrhage, intra or extra-axial. However, there is a subtle area of hypodensity in the right temporal lobe at the middle cranial fossa level which is was not evident on the prior study of October 2019. No area other areas of abnormal hyp odensity in the brain. Ventricles are not enlarged or shifted. IMPRESSION: Subtle area of hypodensity in the right temporal lobe-middle cranial fossa.This represents change whe n compared to October 2019. Given the history here possibility of encephalitis is significant considera tion. Findings discussed by myself with the emergency room physician following completion of the study on 06/05/2019. RADIATION DOSE DELIVERED: 666.16mGy.cm Total DLP 666.16mGy.cm Total DLP DATA REPOSITORY: All CT scans at this facility are submitted to the National Radiology Data Registry (NRDR) Dose Index Registry (DIR) with the [employer] (ACR). RADIATION OPTIMIZATION: All CT scans at this facility use at least one of these dose optimization te chniques: automated exposure control; mA and/or kV adjustment per patient size (includes targeted exa ms where dose is matched to clinical indication); or iterative reconstruction.
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
[2020-04-04] MEDS: Acetaminophen 325 MG TAB 650 MG PO (14:27)
[2020-04-04] MEDS: Normal Saline 1,000 ML 1000 ML IV (14:28)
[2020-04-04 14:32] LABS: Abs Immature Grans 0.01 10^3/uL (0.0-0.06); Absolute Basophil Count 0.03 10^3/uL (0.0-0.2); Absolute Eosinophil Count 0.04 10^3/uL (0.0-0.7); Absolute Lymphocyte Count 1.59 10^3/uL (1.2-3.4); Absolute Monocyte Count 0.29 10^3/uL (0.1-0.8); Basophils % 0.8; HGB 13.6 g/dL (11.2-15.7); Immature Grans % 0.3; Lymphocytes % 40.1; MCH 32.5 pg (27.0-33.0); MCHC 34.9 % (32.0-36.0); MCV 93.1 fL (80-95); MPV 10.1 fL (8.0-11.0); Monocytes % 7.3; Neutrophils % 50.5; Nucleated RBC 0 %; Platelet Count 201 10^3/uL (130-400); RBC 4.19 10^6/uL (3.93-5.22); RDW 11.7 % (11.7-14.6); RDW-SD 39.4 fL; WBC 3.97 10^3/uL (4.4-10.8)
[2020-04-04 14:45] LABS: ALT 12 U/L (14-59); AST 14 U/L (15-37); Albumin 4.5 g/dL (3.4-5.0); Alkaline Phosphatase 34 U/L (46-116); Anion Gap 9.9 mmol/L (3-11); BUN 10 mg/dL (7-18); Bilirubin, Total 0.6 mg/dL (0.2-1.0); CO2 25.1 mmol/L (21.0-32.0); CREATININE 0.94 mg/dL (0.55-1.02); Calcium 9.2 mg/dL (8.5-10.1); Chloride 103 mmol/L (98-107); Glucose 87 mg/dL (74-106); Potassium 3.5 mmol/L (3.5-5.1); Sodium 138 mmol/L (136-145); Total Protein 7.2 g/dL (6.4-8.2)
--- NOTE | 2020-04-04 15:15 | RT.EKG_ITS ---
APPROVED REPORT Exam: Resting ECG Patient Location: E HR:72 bpm ECG Measurements Heart Rate 72 AXIS PA 117 P 48 QRSd 95 QRS 76 QT 371 T 46 QTc 405 Conclusion Sinus rhythm...normal P axis, V-rate 60- 99 sinus rhythm at 72, normal axis, T wave flattening aVL, no STEMI, nondiagnostic EKG
[2020-04-04 15:16] LABS: Bilirubin Negative (Negative); Blood Negative (Negative); Clarity Sl Cloudy (Clear); Glucose Negative (Negative); Ketones Negative (Negative); Leukocyte Esterase Negative (Negative); Nitrite Negative (Negative); Specific Gravity 1.025 (1.005-1.025); Urobilinogen 0.2 EU/dL (Up TO 0.2)
--- NOTE | 2020-04-04 15:36 | NUR.NOTE ---
pt having intermittent episodes of chest pain. relieved with lowering of head. states feels tight, and burining, whole body gets hot. when head is lowered, neck pain feels much better s/p morphine and tylenol. pt back from ct. will cont to monitor:
[2020-04-04 15:44] LABS: Troponin I < 0.05 ng/mL (<0.06)
[2020-04-04 16:04] LABS: D-Dimer 255 ng/mlFEU (<500)
[2020-04-04] MEDS: Normal Saline Flush 10 ML SYR IVP ×2 (16:08→16:43)
[2020-04-04] MEDS: Gadoterate meglumine 20 ML VIAL 15 ML IVP (16:09)
--- NOTE | 2020-04-04 16:30 | DI.CT_ITS ---
EXAM: CT CHEST PE CTA CLINICAL HISTORY: Epigatric pain pleuritic pain, on OCP, elev DDim. TECHNIQUE: Imaging Protocol: Axial CT angiography was performed with multi-slice acquisition and mu lti-planar and/or 3D reconstructions. CONTRAST MATERIAL: Intravenous: Omnipaque 350 Contrast volume:structured data in ml COMPARISON: CT CT ABDOMEN PELVIS W from 02/04/2019 FINDINGS: CT angiography of the chest was performed with intravenous infusion of 100 cc of Omnipaque 350. The lungs are clear. No pleural effusion. Tracheobronchial tree appears intact. No evidence of pulmonary embolic disease. Thoracic aorta is of normal diameter, no thoracic aortic an eurysm or dissection, major branch vessels appear intact. No mediastinal or hilar adenopathy. Images obtained through the upper abdomen show unremarkable appearance of the visualized portions of the liver, spleen, pancreas, adrenals, and kidneys. IMPRESSION: Negative CT angiogram of the chest. No evidence of pulmonary embolic disease. RADIATION DOSE DELIVERED: 374.84mGy.cm Total DLP 374.84mGy.cm Total DLP DATA REPOSITORY: All CT scans at this facility are submitted to the National Radiology Data Registry (NRDR) Dose Index Registry (DIR) with the [employer] [place] [employer] ([employer]). RADIATION OPTIMIZATION: All CT scans at this facility use at least one of these dose optimization te chniques: automated exposure control; mA and/or kV adjustment per patient size (includes targeted exa ms where dose is matched to clinical indication); or iterative reconstruction.
--- NOTE | 2020-04-04 16:40 | DI.MRI_ITS ---
EXAM: MR BRAIN WO/W CLINICAL HISTORY: headache, abnormal CT TECHNIQUE: Multiplanar multisequence MRI of the brain was performed. Post contrast imaging was also obtained utilizing multi planer T1 weighted imaging. COMPARISON: No exams were available for comparison FINDINGS: The ventricular system is normal in appearance. No signal abnormality identified in the brain. There is no enhancing lesion in the brain. The orbital and temporal bone structures appear intact as does the pituitary. Diffusion weighted imaging shows no evidence of infarction. Susceptibility weighted imaging shows no evidence of intracranial hemorrhage. There is normal flow void in the [place] vasculature. IMPRESSION: Normal brain MRI DATA REPOSITORY:
[2020-04-04] MEDS: Omnipaque 350 MG/ML 100 ML BTL IJ (16:42)
[2020-04-04] MEDS: Normal Saline - Diluent 50 ML VIAL IV (16:43)
--- NOTE | 2020-04-04 16:54 | DI.VRAD_ITS ---
PROCEDURE INFORMATION: Exam: MR Head Without and With Contrast Exam date and time: 04/04/2020 4:36 PM Age: 34 years old Clinical indication: Headache, pain posterior aspect of neck. TECHNIQUE: Imaging protocol: MR of the head without and with intravenous contrast. 3D rendering (Not supervised by radiologist): MIP and/or 3D reconstructed images were created by the technologist. Contrast material: DOTAREM; Contrast volume: 15 ml; Contrast route: INTRAVENOUS (IV); COMPARISON: CT HEAD WO 04/04/2020 3:25 PM FINDINGS: Brain: No acute infarct. No mass effect or midline shift. No extra-axial collection. No acute intracranial hemorrhage. Basal cisterns are patent. Cerebral ventricles: Normal. No ventriculomegaly. Bones/joints: Unremarkable. Paranasal sinuses: Normal as visualized. No acute sinusitis. Mastoid air cells: Normal as visualized. No mastoid effusion. Orbits: Unremarkable. Soft tissues: Unremarkable. IMPRESSION: Unremarkable exam. Dictated and Authenticated by: Campos Henson MD. Ordering:LEXI Medina MD
--- NOTE | 2020-04-04 17:18 | DI.VRAD_ITS ---
PROCEDURE INFORMATION: Exam: CT Angiography Chest With Contrast Exam date and time: 04/04/2020 4:46 PM Age: 34 years old Clinical indication: Pain and abnormal findings; Abnormal diagnostic tests; Elevated d-dimer; Pleuordynia and other: Epigastric TECHNIQUE: Imaging protocol: Computed tomographic angiography of the chest with intravenous contrast. 3D rendering (Not supervised by radiologist): MIP and/or 3D reconstructed images were created by the technologist. COMPARISON: CR XR CHEST 2V PA LATERAL 01/19/2020 10:55 AM FINDINGS: Pulmonary arteries: No acute pulmonary embolus. Aorta: Unremarkable. No aortic aneurysm. No aortic dissection. Lungs: Unremarkable. No consolidation. No masses. Pleural space: Unremarkable. No pneumothorax. No pleural effusion. Heart: Unremarkable. No cardiomegaly. No pericardial effusion. Lymph nodes: Unremarkable. No enlarged lymph nodes. Bones/joints: Unremarkable. No acute fracture. Soft tissues: Unremarkable. IMPRESSION: No acute pulmonary embolus. Dictated and Authenticated by: Campos Henson MD. Ordering:MONY Sosa MD
[2020-04-04] MEDS: HYDROmorphone 2 MG/ML VIAL 0.5 MG IVP (17:47)
[2020-04-04 17:52] LABS: Troponin I < 0.05 ng/mL (<0.06)
--- NOTE | 2020-04-04 18:37 | NUR.NOTE ---
attempted lumbar puncture. unsuccessful. pt tolerated well. pt vs stable. able to move neck and curl into position without difficulty. vs stable. will cont to monitor.:
--- NOTE | 2020-04-04 19:47 | NUR.NOTE ---
lumbar puncture completed by anesthesia. pt tolerated well. awiating disposition:
[2020-04-04 20:22] LABS: Glucose (CSF) 51 mg/dL (40-70)
[2020-04-04 20:23] LABS: Total Protein (CSF) 34 mg/dL (15-45)
[2020-04-04 20:25] LABS: Clarity Clear; Tube # 4; Xanthochromia Absent
[2020-04-04 20:26] LABS: RBC 1 /mm3 (0-5); WBC 0 /uL (0-5)
[2020-04-04] MEDS: Dexamethasone 4 MG/ML VIAL 8 MG IVP (20:48)
[2020-04-04] MEDS: Ketorolac 15 MG/ML VIAL IVP (20:48)
[2020-04-15 09:29] LABS: HSV 1 PCR, Varies Negative (Negative); Herpes Source CSF
[2020-04-15 09:30] LABS: HSV 2 PCR, Varies Negative (Negative)
== END 2020-04-04 21:27 | disposition home or self-care (01) ==
PROVIDERS: Student in an Organized Health Care Education/Training Program; Emergency Provider Emergency Medicine; PCP Nurse Practitioner Family
DX: M79.10 Myalgia, unspecified site (principal); R50.9 Fever, unspecified; R51.9 Headache, unspecified; M43.6 Torticollis; B34.9 Viral infection, unspecified; R90.89 Other abnormal findings on diagnostic imaging of central nervous system
CPT/HCPCS: 36415; 62270; 70553; 71275; 80053; 81025; 82945; 87529; 89050; 89051; 93005; 96361; 96365; 96375; 99285; 70450; 81003; 83735; 84157; 84484; 85025; 85379; 87070; 87205; 93010; J0133; J1100; J1885; J3490

== ENCOUNTER 2020-04-20 09:30 | Outpatient (REF) | payer MEDICAID, SELFPAY ==
[2020-04-20 14:06] LABS: Abs Immature Grans 0.01 10^3/uL (0.0-0.06); Absolute Basophil Count 0.04 10^3/uL (0.0-0.2); Absolute Eosinophil Count 0.06 10^3/uL (0.0-0.7); Absolute Lymphocyte Count 1.11 10^3/uL (1.2-3.4); Absolute Monocyte Count 0.31 10^3/uL (0.1-0.8); Absolute Neutrophil Count 2.79 10^3/uL (1.2-6.7); Basophils % 0.9; Eosinophils % 1.4; HCT 39.3 % (36.0-46.0); HGB 13.8 g/dL (11.2-15.7); Immature Grans % 0.2; Lymphocytes % 25.7; MCH 32.5 pg (27.0-33.0); MCHC 35.1 % (32.0-36.0); MCV 92.7 fL (80-95); MPV 10.7 fL (8.0-11.0); Monocytes % 7.2; Neutrophils % 64.6; Nucleated RBC 0 %; Platelet Count 202 10^3/uL (130-400); RBC 4.24 10^6/uL (3.93-5.22); RDW 12.1 % (11.7-14.6); RDW-SD 41.6 fL; WBC 4.32 10^3/uL (4.4-10.8)
[2020-04-20 22:09] LABS: FSH 9.1 mIU/mL (See Note)
== END 2020-04-20 09:50 ==
LOC: NCHCN 09:30
PROVIDERS: PCP Nurse Practitioner Family; Visit Provider Nurse Practitioner Family
DX: R61 Generalized hyperhidrosis (principal)
CPT/HCPCS: 83001; 85025

== ENCOUNTER 2020-04-20 13:49 | Outpatient (REF) | payer MEDICAID, SELFPAY ==
[2020-04-25 14:20] LABS: Chlamydia Result Negative (Negative); GC Result Negative (Negative)
== END 2020-04-20 14:09 ==
LOC: LBN 13:49
PROVIDERS: PCP Nurse Practitioner Family; Visit Provider Obstetrics & Gynecology Gynecology
DX: R10.2 Pelvic and perineal pain (principal); Z11.3 Encounter for screening for infections with a predominantly sexual mode of transmission
CPT/HCPCS: 87491; 87591

== ENCOUNTER 2020-04-20 14:59 | Outpatient (CLI) | payer MEDICAID, SELFPAY ==
--- NOTE | 2020-04-20 11:15 | DI.RAD_ITS ---
EXAM: XR ELBOW RT COMPLETE CLINICAL HISTORY: right elbow pain. TECHNIQUE: 2D digital imaging was performed. COMPARISON: No exams were available for comparison FINDINGS: BONES: No acute fracture is present. No bony destructive lesion is seen. JOINTS: The elbow is normally aligned. No joint effusion is seen. SOFT TISSUE: Normal. IMPRESSION: Unremarkable radiographs of the right elbow. DATA REPOSITORY: RADIATION DOSE DELIVERED:
== END 2020-04-20 15:19 ==
PROVIDERS: PCP Nurse Practitioner Family; Visit Provider Student in an Organized Health Care Education/Training Program
DX: M25.521 Pain in right elbow (principal)
CPT/HCPCS: 73080

== ENCOUNTER 2020-05-02 01:22 | Outpatient (CLI) | payer MEDICAID, SELFPAY ==
--- NOTE | 2020-05-02 07:00 | DI.MRI_ITS ---
EXAM: MR UPPER JOINT RT WO CLINICAL HISTORY: SURGICAL PLANNING,LATERAL EPICONDYLITIS RT ELBOW,M77.11 TECHNIQUE: Multiplanar multisequence MRI was performed without intravenous contrast. COMPARISON: No exams were available for comparison FINDINGS: MARROW: There is no evidence of fracture, bone contusion, nor ominous osseous lesions. ELBOW JOINT: There is no evidence of elbow joint effusion.No significant cartilage loss nor osteochon dral defect and there is no evidence of loose intra-articular body. There are no osteophytes. EPICONDYLES: There is abnormal signal at the attachment site of the common extensor tendon on the lat eral epicondyle consistent with epicondylitis. There is no intraosseous signal abnormality at this l evel. Similar findings are not seen on the opposite-medial aspect of elbow. COLLATERAL LIGAMENTS: Intact TENDONS: The biceps tendon is intact. The brachialis tendon is intact. Mild increased signal noted at the insertion site of the triceps on the posterior olecranon. No abno rmal signal with in the olecranon itself. No swelling of the olecranon bursa. CUBITAL TUNNEL/ULNAR NERVE: The ulnar nerve appears unremarkable beneath the cubital tunnel retinacul um and posterior to the medial epicondyle. There is no evidence of arthritic spur arising from the e picondyle nor olecranon causing impingement on the ulnar nerve. There is no evidence of accessory an coneus muscle causing impingement at this level. There is also no evidence of soft tissue mass nor g anglia on cyst causing impingement at this level. OTHER FINDINGS: IMPRESSION: 1. Increased signal in the common extensor tendon at the level of the lateral epicondyle, consistent with epicondylitis. There is no prominent intraosseous signal abnormality at this level. There does not appear to be a full-thickness tear of the extensor tendon. Similar findings are not seen on the opposite-medial aspect of the elbow. DATA REPOSITORY:
== END 2020-05-02 01:42 ==
PROVIDERS: PCP Nurse Practitioner Family; Visit Provider Student in an Organized Health Care Education/Training Program
DX: M77.11 Lateral epicondylitis, right elbow (principal)
CPT/HCPCS: U0003; 73221

== ENCOUNTER 2020-05-04 02:44 | Outpatient (CLI) | payer MEDICAID, SELFPAY ==
--- NOTE | 2020-05-04 07:45 | DI.US_ITS ---
EXAM: US PELVIS TRANSVAGINAL CLINICAL HISTORY: L sided pelvic pain. s/p tubal sterilization,R10.2 TECHNIQUE: Ultrasound of the pelvis was performed both transabdominal and transvaginal. COMPARISON: US US AXILLA RT from 11/27/2019 FINDINGS: UTERUS: Measures 9.9 cm length x 3.0 cm AP x 5.4 cm wide. There are no uterine fibroids.There is a small 3 x 2 millimeters cyst within the lower uterine segmen t at the myometrium-endometrium junction. Endometrial thickness measures 3-4 mm. There is no fluid in the endometrial canal. CERVIX: There are no obvious nabothian cysts. RIGHT OVARY: Measures 2.7 x 1.6 x 1.9 cm No significant cysts nor masses evident in the right ovary. LEFT OVARY: Measures 3.5 x 1.9 x 2.2 cm Contains a follicle measuring 12 x 13 millimeters. CUL-DE-SAC: No free fluid evident. IMPRESSION: 1. Solitary finding in the uterus which is a tiny 3 x 2 millimeter cyst at the junction of the endome trium and myometrium in the lower uterine segment anterior aspect. No other focal findings in the ut erus 2. No abnormal ovarian findings. Largest follicular cyst measures 12-13 millimeters (left ovary) 3. No free fluid evident in the adnexal regions and cul-de-sac. DATA REPOSITORY:
== END 2020-05-04 03:04 ==
PROVIDERS: PCP Nurse Practitioner Family; Visit Provider Obstetrics & Gynecology Gynecology
DX: N85.8 Other specified noninflammatory disorders of uterus (principal); N83.02 Follicular cyst of left ovary
CPT/HCPCS: 76830; 76856

== ENCOUNTER 2020-05-05 06:04 | Day surgery (SDC) | payer MEDICAID, SELFPAY ==
[2020-05-05] VITALS (10 sets, daily range): BP systolic 88–120; BP diastolic 54–74; PULSE 45–69; RESP 14–21; TEMP 35.8–37; O2SAT 96–99
[2020-05-05] MEDS: Lactated Ringers 1,000 ML 80 ML IV (06:50)
[2020-05-05] MEDS: ceFAZolin 2 GM/50 ML BAG IVPB (07:56)
--- NOTE | 2020-05-05 09:16 | ROE_ITS ---
Date of service: 05/05/20 Time of Service: 14:40 Operative Note Operative Note DATE OF PROCEDURE: 05/05/20 PRE-OP DIAGNOSIS: Right elbow lateral epicondylitis POST-OP DIAGNOSIS: same PROCEDURE: Right elbow arthroscopy with debridement lateral epicondylitis, CPT # 64135 SURGEON: Eddie Greer STAFF CERTIFIED NURSE MIDWIFE: Gail Minor ANESTHESIA: GETA and regional PATHOLOGY: none sent TOURNIQUET TIME: 0 COMPLICATIONS: None Patient was transported to: PACU Patient's condition: stable Indications: Please see complete medical record for details. Findings: Mild anterior and lateral synovitis. Intact cartilaginous surfaces. Thickened common extensor tendon origins EDC, ECRB, and to a lesser extent ECRL Procedure Description: In the operating room, general anesthesia was induced. The patient was positioned lateral on the operating room table. All bony prominences were well-padded. Preoperative antibiotics were administered. The elbow was prepped and draped in the usual sterile fashion. The correct patient, procedure, and side of the procedure were all verified prior to incision. 20 cc of normal saline was used to insufflate the right elbow joint through the lateral soft spot. The kirill and spread technique was used to establish the proximal anteromedial portal. A diagnostic arthroscopy of the anterior elbow compartment was performed with findings noted above. A spinal needle was used to localize a modified direct lateral working portal for lateral epicondyle and common extensor origin debridement. The spinal needle was used to set the superior and inferior margins of the resection as well as free up disease tissue from its bony origin. Next an 11 blade was used to kirill the skin followed by straight snap to spread down to the diseased tendon tissue and meticulously release the ECRB as well as adjacent thickened diseased EDC and ECRL tendon from the lateral epicondyle. Care was taken to work anterior to the midline of the radial head to preserve the radial collateral ligament. A 3.5 mm shaver was used to debride approximately 1 cm of diseased tendon and lightly abrade lateral epicondyle bony origin. Shaver was also used to remove the small amount of lateral and anterior synovitis. The elbow was drained of arthroscopic fluid. The medial and lateral portals were closed using 3-0 Monocryl in a buried interrupted fashion. Mastisol was applied about the incisions which were covered with Steri-Strips. Xeroform pieces were applied over both incisions and covered with dry 4 x 4 gauze. The elbow was gently compressed with liz bandage. The radial pulse was 2+. The patient awoke from anesthesia without complication and was transferred to the recovery room in stable fashion.
--- NOTE | 2020-05-05 09:20 | W.PM.DSUDISC ---
Discharge Plan Disposition Patient Disposition: HOME Condition: Stable Discharge Details Reason For Visit: Right elbow surgery Attending Provider: Eddie Greer Primary Care Provider: Danisha Ozuna Home Meds and New Rx's Prescriptions: New aspirin 81 mg tablet,delayed release (DR/EC) 81 mg PO DAILY 14 Days Qty: 14 RF: 0 ibuprofen 800 mg tablet 800 mg PO BID PRN (Reason: pain, moderate) Qty: 60 RF: 0 oxycodone 5 mg tablet 5 - 10 mg PO Q4H PRN (Reason: moderate to severe pain) Qty: 9 RF: 0 Continued acetaminophen [Tylenol Extra Strength] 500 MG tablet 2 tab PO PRN Qty: 2 RF: 0 valacyclovir [Valtrex] 1 gram tablet 1,000 mg PO DAILY Qty: 90 RF: 5 sertraline [Zoloft] 100 mg tablet 200 mg PO DAILY RF: 0 ibuprofen 800 mg tablet 800 mg PO Q8H PRN (Reason: pain) Qty: 60 RF: 2 Discontinued lorazepam [Ativan] 0.5 mg Tablet 0.5 mg PO PRN PRNRF: 0 Discharge Instructions Additional Instructions: Surgery: Right elbow arthroscopy with debridement lateral epicondylitis Activity: Weightbearing as tolerated. May discontinue sling as soon as comfortable. Recommend elevating and resting elbow on pillows to minimize swelling and discomfort. Please perform gentle active stretching. Avoid heavy lifting and manual labor for a 6-8 weeks A physical therapy prescription will be provided separately in the office at follow-up if needed. Prescriptions: Aspirin 81 mg take 1 daily to prevent a blood clot for 2 weeks Ibuprofen 800 mg take 1 every 12 hours with a meal as needed for moderate pain Oxycodone 5 mg take 1-2 every 4-6 hours as needed for severe pain You may use [id number] Tylenol (acetaminophen) as needed for mild pain. These pain medications may be taken all at once or in different combinations as needed. Also, recommend Colace (docusate) as a stool softener as surgery and pain medicine cause constipation. Dressings: Leave dressing in place for 2-3 days. Adjust Rafita wrap as needed. May then remove and leave open to air or cover incisions with Band-Aids. May shower after 5 days. Follow-up: 10-[address] Greer Let us know right away if you develop any redness, drainage, fevers, chest pain, or trouble breathing. Do not drink alcohol or drive for at least 24 hours after anesthesia. Please call the office during business hours with any questions or concerns. Referrals: Eddie Greer MD [ [facility] STAFF PHYSICIAN] - Discharge Orders Discharge Orders: Discharge Order (Routine); Ordered 05/05/20 Ordered By: Eddie Greer DS: Diagnosis Discharge Diagnosis (1) Lateral epicondylitis, right elbow: Status: Acute
[2020-05-05] MEDS: Normal Saline Flush 10 ML SYR IV (11:35)
== END 2020-05-05 12:17 | disposition home or self-care (01) ==
PROVIDERS: PCP Nurse Practitioner Family; Visit Provider Student in an Organized Health Care Education/Training Program
PROC: (CPT 29830; principal; 2020-05-05 07:30)
DX: M77.11 Lateral epicondylitis, right elbow (principal); G89.18 Other acute postprocedural pain; F17.290 Nicotine dependence, other tobacco product, uncomplicated
CPT/HCPCS: 29837; 76942; J0690; J1100; J1885; J2001; J2250; J2405

== ENCOUNTER 2020-06-10 13:18 | Outpatient (REF) | payer MEDICAID, SELFPAY ==
[2020-06-11 11:48] LABS: COVID-19 RT-PCR UVMMC Result Negative (Negative)
== END 2020-06-10 13:19 | disposition home or self-care (01) ==
LOC: NCHCN 13:18
PROVIDERS: PCP Nurse Practitioner Family; Visit Provider Family Medicine
DX: J06.9 Acute upper respiratory infection, unspecified (principal)
CPT/HCPCS: U0003

== ENCOUNTER 2020-08-04 09:52 | Outpatient (CLI) | payer MEDICAID, SELFPAY ==
[2020-08-04 10:37] LABS: Abs Immature Grans 0.03 10^3/uL (0.0-0.06); Absolute Basophil Count 0.04 10^3/uL (0.0-0.2); Absolute Eosinophil Count 0.01 10^3/uL (0.0-0.7); Absolute Lymphocyte Count 1.14 10^3/uL (1.2-3.4); Absolute Monocyte Count 0.45 10^3/uL (0.1-0.8); Absolute Neutrophil Count 7.25 10^3/uL (1.2-6.7); Basophils % 0.4; Eosinophils % 0.1; HCT 42.2 % (36.0-46.0); HGB 14.3 g/dL (11.2-15.7); Immature Grans % 0.3; Lymphocytes % 12.8; MCH 31.6 pg (27.0-33.0); MCHC 33.9 % (32.0-36.0); MCV 93.4 fL (80-95); MPV 9.9 fL (8.0-11.0); Neutrophils % 81.4; Nucleated RBC 0 %; Platelet Count 210 10^3/uL (130-400); RBC 4.52 10^6/uL (3.93-5.22); RDW 12.4 % (11.7-14.6); RDW-SD 42.3 fL; WBC 8.92 10^3/uL (4.4-10.8)
[2020-08-04 11:25] LABS: C-Reactive Protein 0.07 mg/dL (0.0-0.3)
[2020-08-04 11:48] LABS: ESR 2 mm//hr (0-20)
== END 2020-08-04 09:53 | disposition home or self-care (01) ==
PROVIDERS: PCP Nurse Practitioner Family; Visit Provider Student in an Organized Health Care Education/Training Program
DX: M77.11 Lateral epicondylitis, right elbow (principal); M79.18 Myalgia, other site
CPT/HCPCS: 36415; 85652; 85025; 86140

== ENCOUNTER 2020-08-05 20:01 | Emergency (ER) | payer MEDICAID, SELFPAY ==
[2020-08-05 20:03] VITALS: BP 114/56; PULSE 74; RESP 16; TEMP 36.7; O2SAT 96
[2020-08-05 20:09] VITALS: RESP 16
--- NOTE | 2020-08-05 20:15 | RT.EKG_ITS ---
APPROVED REPORT Exam: Resting ECG Patient Location: E HR:58 bpm ECG Measurements Heart Rate 58 AXIS NM 122 P 63 QRSd 73 QRS 66 QT 391 T 47 QTc 386 Conclusion Sinus bradycardia...rate< 60
[2020-08-05] MEDS: Lactated Ringers 1,000 ML 1000 ML IV (20:36)
[2020-08-05 20:51] LABS: Abs Immature Grans 0.02 10^3/uL (0.0-0.06); Absolute Basophil Count 0.06 10^3/uL (0.0-0.2); Absolute Eosinophil Count 0.02 10^3/uL (0.0-0.7); Absolute Lymphocyte Count 1.14 10^3/uL (1.2-3.4); Absolute Monocyte Count 0.42 10^3/uL (0.1-0.8); Absolute Neutrophil Count 3.88 10^3/uL (1.2-6.7); Basophils % 1.1; Eosinophils % 0.4; HCT 39.3 % (36.0-46.0); HGB 13.6 g/dL (11.2-15.7); Immature Grans % 0.4; Lymphocytes % 20.6; MCH 31.9 pg (27.0-33.0); MCHC 34.6 % (32.0-36.0); MCV 92.3 fL (80-95); MPV 9.9 fL (8.0-11.0); Monocytes % 7.6; Neutrophils % 69.9; Nucleated RBC 0 %; Platelet Count 200 10^3/uL (130-400); RBC 4.26 10^6/uL (3.93-5.22); RDW 11.9 % (11.7-14.6); WBC 5.54 10^3/uL (4.4-10.8)
[2020-08-05 21:01] LABS: ALT 20 U/L (14-59); AST 11 U/L (15-37); Albumin 4.2 g/dL (3.4-5.0); Alkaline Phosphatase 38 U/L (46-116); Anion Gap 11.2 mmol/L (3-11); BUN 13 mg/dL (7-18); Bilirubin, Total 0.4 mg/dL (0.2-1.0); CO2 26.8 mmol/L (21.0-32.0); CREATININE 1.1 mg/dL (0.55-1.02); Calcium 9.4 mg/dL (8.5-10.1); Chloride 102 mmol/L (98-107); Estimated GFR 57.56 (mL/min/1.73m2); Glucose 118 mg/dL (74-106); Magnesium 2.1 mg/dL (1.8-2.4); Potassium 3.5 mmol/L (3.5-5.1); Sodium 140 mmol/L (136-145)
[2020-08-05 21:06] LABS: Troponin I < 0.05 ng/mL (<0.06)
[2020-08-05 21:13] VITALS: BP 102/59; PULSE 64; RESP 16; O2SAT 96
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
[2020-08-05 21:27] LABS: Bilirubin Negative (Negative); Blood Negative (Negative); Clarity Clear (Clear); Glucose Negative (Negative); Ketones Trace mg/dL (Negative); Leukocyte Esterase Negative (Negative); Nitrite Negative (Negative); Specific Gravity 1.025 (1.005-1.025); Urobilinogen 0.2 EU/dL (Up TO 0.2); pH 6.5 (5-8)
[2020-08-05 21:57] VITALS: BP 117/70; PULSE 61; RESP 16; O2SAT 98
== END 2020-08-05 22:10 | disposition home or self-care (01) ==
PROVIDERS: Emergency Provider Student in an Organized Health Care Education/Training Program; PCP Nurse Practitioner Family
DX: R55 Syncope and collapse (principal); R00.1 Bradycardia, unspecified; E86.0 Dehydration
CPT/HCPCS: 36415; 80053; 81025; 93005; 96360; 99284; 81003; 83735; 84484; 85025; 93010

== ENCOUNTER 2021-01-13 08:39 | Outpatient (REF) | payer MEDICAID, SELFPAY ==
[2021-01-15 15:35] LABS: COVID-19 RT-PCR UVMMC Result Negative (Negative)
== END 2021-01-13 08:40 | disposition home or self-care (01) ==
LOC: LBN 08:39
PROVIDERS: PCP Nurse Practitioner Family; Visit Provider Physician Assistant Medical
DX: Z20.822 Contact with and (suspected) exposure to COVID-19 (principal); J06.9 Acute upper respiratory infection, unspecified
CPT/HCPCS: U0003

== ENCOUNTER 2021-01-20 06:50 | Emergency (ER) | payer MEDICAID, SELFPAY ==
[2021-01-20 07:03] VITALS: PULSE 74; RESP 16; TEMP 36.4; O2SAT 98
[2021-01-20 07:16] VITALS: BP 111/62
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
[2021-01-20] MEDS: Albuterol HFA 8 GM 60 PUFF INH IH (07:48)
[2021-01-20 07:49] LABS: Source Nasal/Nares
[2021-01-20] MEDS: Benzonatate 100 MG CAP PO (07:49)
[2021-01-20 07:52] LABS: Abs Immature Grans 0.02 10^3/uL (0.0-0.06); Absolute Basophil Count 0.04 10^3/uL (0.0-0.2); Absolute Eosinophil Count 0.12 10^3/uL (0.0-0.7); Absolute Monocyte Count 0.46 10^3/uL (0.1-0.8); Absolute Neutrophil Count 4.56 10^3/uL (1.2-6.7); Basophils % 0.7; HCT 37.8 % (36.0-46.0); HGB 12.7 g/dL (11.2-15.7); Immature Grans % 0.3; Lymphocytes % 11.9; MCH 31.3 pg (27.0-33.0); MCHC 33.6 % (32.0-36.0); MCV 93.1 fL (80-95); MPV 10.1 fL (8.0-11.0); Monocytes % 7.8; Neutrophils % 77.3; Nucleated RBC 0 %; Platelet Count 158 10^3/uL (130-400); RBC 4.06 10^6/uL (3.93-5.22); RDW 12.1 % (11.7-14.6); RDW-SD 42.2 fL
[2021-01-20 08:02] LABS: Anion Gap 6.7 mmol/L (3-11); BUN 12 mg/dL (7-18); CO2 28.3 mmol/L (21.0-32.0); CREATININE 0.8 mg/dL (0.55-1.02); Calcium 8.9 mg/dL (8.5-10.1); Chloride 108 mmol/L (98-107); Glucose 96 mg/dL (74-106); Potassium 4.1 mmol/L (3.5-5.1); Sodium 143 mmol/L (136-145)
[2021-01-20 08:20] LABS: HCG Qual (Serum) Negative
--- NOTE | 2021-01-20 08:30 | DI.RAD_ITS ---
Exam(s) XR PORTABLE CHEST AP EXAM: XR PORTABLE CHEST AP CLINICAL HISTORY: cough, pui TECHNIQUE: 2D digital imaging was performed of the chest. One view was obtained. An AP view was obt ained. COMPARISON: No exams were available for comparison FINDINGS: MEDIASTINUM: Normal. HEART: Normal. PULMONARY VASCULATURE: Normal. LUNGS: Clear. PLEURAL SPACE: No pleural effusion or pneumothorax. BONE:Within normal limits for the patient's age. OTHER FINDINGS:Normal. IMPRESSION: 1. No acute pulmonary findings. 2. Results of this exam have been verbally communicated with provider. DATA REPOSITORY: RADIATION DOSE DELIVERED:
[2021-01-20 08:32] LABS: D-Dimer 156 ng/mlFEU (<500)
[2021-01-20 08:41] LABS: COVID-19 PCR Negative (Negative)
[2021-01-20] MEDS: Doxycycline Hyclate 100 MG CAP PO (10:09)
[2021-01-20] MEDS: Inhaler, Assist Device 1 EACH MC (10:09)
[2021-01-20 10:10] VITALS: BP 102/67; PULSE 73; RESP 18; TEMP 36.6; O2SAT 98
[2021-01-20] MEDS: predniSONE 20 MG TAB 40 MG PO (10:10)
== END 2021-01-20 10:15 | disposition home or self-care (01) ==
PROVIDERS: Emergency Medicine; Emergency Provider Student in an Organized Health Care Education/Training Program; PCP Nurse Practitioner Family
DX: J20.9 Acute bronchitis, unspecified (principal); F17.290 Nicotine dependence, other tobacco product, uncomplicated
CPT/HCPCS: 36415; 80048; 87635; 99283; 71045; 84703; 85025; 85379; J7512

== ENCOUNTER 2021-02-14 12:55 | Outpatient (CLI) | payer MEDICAID, SELFPAY ==
--- NOTE | 2021-02-14 12:45 | DI.MRI_ITS ---
Exam(s) MR CERVICAL SPINE WO EXAM: MR CERVICAL SPINE WO CLINICAL HISTORY: bilateral radicular sx with normal NCS,radiculopathy,m54.12 TECHNIQUE: Multiplanar multisequence MRI of the cervical spine was performed without intravenous con trast. COMPARISON: No exams were available for comparison FINDINGS: BONES: Vertebral body heights are maintained. Intervertebral disc spaces are normal. Alignment is nor mal. Bone marrow signal intensity is within normal limits. CERVICAL CORD: Craniovertebral junction is unremarkable. The cervical cord is normal size and signal intensity. SOFT TISSUES: Unremarkable. C2-3: No disc herniation or bulge is identified. No significant central spinal canal or neural forami nal stenosis. C3-4: No disc herniation or bulge is identified. No significant central spinal canal or neural forami nal stenosis C4-5: There is a mild diffuse disc bulge. No significant central spinal canal or neural foraminal st enosis C5-6: There is mild diffuse disc bulge. There is mild narrowing of the central spinal canal to 9 mm. No significant neural foraminal stenosis C6-7: There is a mild diffuse disc bulge eccentric to the left. No significant central spinal canal stenosis. No neural foraminal stenosis. C7-T1: No disc herniation or bulge is identified. No significant central spinal canal or neural sukh inal stenosis IMPRESSION: Mild diffuse disc bulges at C4-5, C5-C6 and C6-C7. Mild narrowing of the central spinal canal is see n at C5-C6. DATA REPOSITORY:
== END 2021-02-14 13:15 ==
PROVIDERS: PCP Nurse Practitioner Family; Visit Provider Psychiatry & Neurology Neurology
DX: M50.121 Cervical disc disorder at C4-C5 level with radiculopathy; M50.122 Cervical disc disorder at C5-C6 level with radiculopathy; M50.123 Cervical disc disorder at C6-C7 level with radiculopathy; M48.02 Spinal stenosis, cervical region
CPT/HCPCS: 72141

== ENCOUNTER 2021-04-05 14:40 | Outpatient (REF) | payer MEDICAID, SELFPAY ==
[2021-04-07 11:22] LABS: COVID-19 RT-PCR UVMMC Result Negative (Negative)
== END 2021-04-05 14:41 | disposition home or self-care (01) ==
LOC: LBN 14:40
PROVIDERS: PCP Nurse Practitioner Family; Visit Provider Nurse Practitioner Family
DX: Z20.822 Contact with and (suspected) exposure to COVID-19 (principal); J02.9 Acute pharyngitis, unspecified
CPT/HCPCS: U0003

== ENCOUNTER → 2021-06-29 02:46 | Outpatient (CLI) | payer MEDICAID, SELFPAY ==
--- NOTE | 2021-06-29 | DI.US_ITS ---
Exam(s) US BREAST RT COMPLETE MG MAMMO DIAGNOSTIC BI EXAM: MG MAMMO DIAGNOSTIC BI CLINICAL HISTORY: BREAST LUMP N63.0. COMPARISON: No exams were available for comparison [id number] TECHNIQUE: Craniocaudal and mediolateral oblique Full Field Digital Mammography views of both breast s with Computer Aided Diagnosis followed by Tomosynthesis and right breast ultrasound. FINDINGS: Mammography/Tomosynthesis: Masses/Architectural Distortion: None seen. Dense tissue upper-outer quadrant right breast. Microcalcifications: No suspicious pleomorphic-type are seen. Skin Thickening/Nipple Retraction: None. Right breast US: Echotexture: Normal appearance of the glandular tissue. Shadowing: No suspicious foci. Cyst: None. Solid lesions: None seen. Ductal dilation: None. IMPRESSION: 1. No evidence of malignancy is noted. 2. Unless there is more urgent need, follow-up screening mammography is recommended, as per [place] [employer] guidelines. BI-RADS Category 1 - Negative Breast Density - Category C - Heterogeneously dense Breast density category C or D implies that the patient has dense breast tissue. Dense breast tissue is very common and is not abnormal but dense breast tissue can make it harder to find cancer on a ma mmogram. Also, dense breast tissue may increase their breast cancer risk. This information about the result of the mammogram report was provided to the patient to raise their awareness. Use this report when you speak with the patient about their risks for breast cancer, which includes their family hist ory. At that time, you may recommend for more screening tests (Ultrasound or MRI) as they might be us eful based on their risk. A negative radiographic report should not delay biopsy if a dominant or clinically suspicious mass is present. Up to ten percent of cancers are not identified on mammography. A negative report may reinforce clinical impression. Adenosis and dense breasts may obscure an underlying neoplasm. False positive reports average 6 to 10%. Patient will receive a letter notifying them of these results.
== END ==
PROVIDERS: PCP Nurse Practitioner Family; Visit Provider Nurse Practitioner Family
DX: N63.11 Unspecified lump in the right breast, upper outer quadrant (principal); R92.8 Other abnormal and inconclusive findings on diagnostic imaging of breast
CPT/HCPCS: 76642; 77062; 77066; G0279

== ENCOUNTER 2021-08-31 21:45 | Outpatient (REF) | payer MEDICAID, SELFPAY | END 2021-08-31 21:46 | disposition home or self-care (01) | LOC: NCHCN 21:45 | PROVIDERS: PCP Nurse Practitioner Family; Visit Provider Nurse Practitioner Family | DX: N89.8 Other specified noninflammatory disorders of vagina (principal); R30.0 Dysuria | CPT/HCPCS: 87086; 87480; 87510; 87660 ==

== ENCOUNTER 2021-09-04 13:39 | Outpatient (CLI) | payer MEDICAID, SELFPAY ==
--- NOTE | 2021-09-04 | DI.RAD_ITS ---
Exam(s) XR CHEST 2V PA LATERAL EXAM: XR CHEST 2V PA LATERAL CLINICAL HISTORY: NIGHT SWEATS - R61 TECHNIQUE: 2D digital imaging was performed. COMPARISON: CR XR PORTABLE CHEST AP from 01/20/2021 FINDINGS: MEDIASTINUM: Normal. HEART: Normal. PULMONARY VASCULATURE: Normal. LUNGS: Clear. PLEURAL SPACE: No pleural effusion or pneumothorax. BONE:Unremarkable for age. IMPRESSION: No acute abnormality. DATA REPOSITORY: RADIATION DOSE DELIVERED:
== END 2021-09-04 13:59 ==
PROVIDERS: PCP Nurse Practitioner Family; Visit Provider Family Medicine
DX: R61 Generalized hyperhidrosis (principal)
CPT/HCPCS: 71046

== ENCOUNTER 2021-09-29 16:20 | Emergency (ER) | payer MEDICAID, SELFPAY ==
[2021-09-29 16:32] VITALS: BP 120/79; PULSE 89; RESP 17; TEMP 36.8; O2SAT 97
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
[2021-09-29] MEDS: LORazepam 2 MG/ML VIAL 0.5 MG IVP (17:03)
[2021-09-29] MEDS: Ketorolac 15 MG/ML VIAL IVP (17:03)
[2021-09-29] MEDS: Dexamethasone 10 MG/ML VIAL IVP (17:03)
[2021-09-29] MEDS: HYDROmorphone 2 MG/ML VIAL 1 MG IVP (17:03)
[2021-09-29] MEDS: Normal Saline 1,000 ML 1000 ML IV (17:03)
[2021-09-29 17:13] LABS: Abs Immature Grans 0.02 10^3/uL (0.0-0.06); Absolute Basophil Count 0.06 10^3/uL (0.0-0.2); Absolute Eosinophil Count 0.12 10^3/uL (0.0-0.7); Absolute Lymphocyte Count 2.02 10^3/uL (1.2-3.4); Absolute Monocyte Count 0.52 10^3/uL (0.1-0.8); Absolute Neutrophil Count 3.23 10^3/uL (1.2-6.7); HCT 43.1 % (36.0-46.0); HGB 14.3 g/dL (11.2-15.7); Immature Grans % 0.3; Lymphocytes % 33.8; MCHC 33.2 % (32.0-36.0); MCV 93 fL (80-95); MPV 9.7 fL (8.0-11.0); Monocytes % 8.7; Neutrophils % 54.2; Platelet Count 238 10^3/uL (130-400); RBC 4.62 10^6/uL (3.93-5.22); RDW 12.6 % (11.7-14.6); RDW-SD 43.4 fL; WBC 5.97 10^3/uL (4.4-10.8)
--- NOTE | 2021-09-29 17:15 | DI.RAD_ITS ---
Exam(s) XR LUMBAR SPINE AP, LAT EXAM: XR LUMBAR SPINE AP, LAT CLINICAL HISTORY: Lower back pain. TECHNIQUE: 2D digital imaging was performed. COMPARISON: No exams were available for comparison FINDINGS: 3 views No evidence of fracture, listhesis, or pars interarticularis defects. All the disc spaces exhibit no rmal height. No scoliosis. No osseous lesions. Surgical clips in the right upper quadrant are prob ably from prior cholecystectomy. IMPRESSION: No significant radiographic findings in the lumbosacral spinal column. DATA REPOSITORY: RADIATION DOSE DELIVERED:
[2021-09-29 17:18] LABS: ALT 25 U/L (14-59); AST 24 U/L (15-37); Albumin 4.7 g/dL (3.4-5.0); Alkaline Phosphatase 38 U/L (46-116); Anion Gap 9.5 mmol/L (3-11); BUN 15 mg/dL (7-18); Bilirubin, Total 0.5 mg/dL (0.2-1.0); CO2 26.5 mmol/L (21.0-32.0); CREATININE 0.9 mg/dL (0.55-1.02); Calcium 9.7 mg/dL (8.5-10.1); Chloride 101 mmol/L (98-107); Glucose 74 mg/dL (74-106); Potassium 3.9 mmol/L (3.5-5.1); Sodium 137 mmol/L (136-145); Total Protein 7.7 g/dL (6.4-8.2)
[2021-09-29 17:23] LABS: Bilirubin Negative (Negative); Blood Negative (Negative); Clarity Clear (Clear); Glucose Negative (Negative); Ketones Negative (Negative); Leukocyte Esterase Negative (Negative); Nitrite Negative (Negative); Specific Gravity 1.025 (1.005-1.025); Urobilinogen 0.2 EU/dL (Up TO 0.2); pH 6.5 (5-8)
[2021-09-29 17:45] VITALS: BP 122/73; PULSE 84; RESP 18; O2SAT 98
--- NOTE | 2021-09-29 18:28 | DI.VRAD_ITS ---
PROCEDURE INFORMATION: Exam: XR Lumbosacral Spine Exam date and time: 09/29/2021 6:03 PM Age: 35 years old Clinical indication: Low back pain TECHNIQUE: Imaging protocol: XR of the lumbosacral spine. Views: 2 or 3 views. COMPARISON: CT ABDOMEN PELVIS W 02/04/2019 4:16 PM FINDINGS: Bones/joints: Normal anatomic alignment. Vertebral body heights are well preserved. There is no significant disc space narrowing. The spinal canal is patent. No aggressive osseous lesions. Soft tissues: There is no significant soft tissue swelling. Gastrointestinal tract: Nonobstructive bowel gas pattern. Other findings: There is no evidence of acutely displaced fractures. There is no evidence of joint dislocation. IMPRESSION: No acute skeletal pathology. Dictated and Authenticated by: Henry Cervantes MD. Ordering:MONY Sosa MD
== END 2021-09-29 18:39 | disposition home or self-care (01) ==
PROVIDERS: Emergency Provider Emergency Medicine; PCP Nurse Practitioner Family
DX: M54.50 Low back pain, unspecified (principal)
CPT/HCPCS: 80053; 81025; 96361; 96374; 96375; 99284; 72100; 81003; 85025; 99283; J1100; J1885; J2060

== ENCOUNTER 2021-11-03 11:15 | Emergency (ER) | payer MEDICAID, SELFPAY ==
[2021-11-03] VITALS (10 sets, daily range): BP systolic 100–125; BP diastolic 66–95; PULSE 46–90; RESP 12–17; TEMP 36.8; O2SAT 93–100
[2021-11-03] MEDS: diazePAM 10 MG/2 ML SYR IVP (11:35)
[2021-11-03] MEDS: MORPHine 4 MG/ML SYR IVP ×2 (11:39→12:39)
[2021-11-03] MEDS: Ketorolac 30 MG/ML VIAL IVP (11:40)
[2021-11-03] MEDS: Lidocaine 5% Patch 1 PATCH TP (11:52)
--- NOTE | 2021-11-03 12:00 | RT.EKG_ITS ---
APPROVED REPORT Exam: Resting ECG Reason for Exam: chest pain Patient Location: E HR:49 bpm ECG Measurements Heart Rate 49 AXIS UT 95 P 24 QRSd 102 QRS 81 QT 405 T 59 QTc 368 Conclusion Bradycardia with irregular rate...V-rate 44- 57, mean < 60
--- NOTE | 2021-11-03 12:30 | DI.CT_ITS ---
Exam(s) CT THORAX ABD/PEL CTA EXAM: CT THORAX ABD/PEL CTA CLINICAL HISTORY: Chest/Back pain, sob. TECHNIQUE: Imaging Protocol: Axial CT angiography was performed with multi-slice acquisition and mu lti-planar and/or 3D reconstructions. CONTRAST MATERIAL: Intravenous: Omnipaque 350 Contrast volume:100 ml COMPARISON: CT CT CHEST PE CTA from 04/04/2020 FINDINGS: CHEST: Pulmonary Arteries: No evidence of filling defect to suggest pulmonary emboli. Tracheobronchial tree: Patent where visualized. Mediastinum and Lillie: No dominant adenopathy or fluid collection. Pulmonary parenchyma: No consolidation or dominant measurable mass. No architectural distortion. Pleura: No effusion or pneumothorax. Heart: The heart is not dilated. No coronary artery calcifications are seen. Aorta: Thoracic aorta non-dilated. No dissection Bones: Normal. ABDOMEN: Liver: Normal density. No measurable mass. Gallbladder and Biliary Tract: Status post cholecystectomy. No radiodense calculus or dilation. Pancreas: Normal density, no abnormal calcifications or inflammatory process. Spleen: Normal. Adrenals: No masses seen. Kidneys: Normal size, contour and axis. No radiodense stones or obstructive uropathy. No masses seen. Abdominal Aorta and branch vessels: normal diameter throughout. No evidence of vascular occlusion s tenosis or dissection. Bowel: No obstruction or bowel wall thickening. Appendix is unremarkable. Peritoneal Cavity: No ascit es, collection or mesenteric inflammatory response. Lymph Nodes: Within normal limits. Bones: Unremarkable. Soft Tissues: Unremarkable. PELVIS: Bladder: Symmetric distention, no gross wall thickening. Reproductive Organs: Unremarkable as visualized. Lymph Nodes: Within normal limits. Bones: Within normal limits. IMPRESSION: 1. No evidence of pulmonary embolism or other acute abnormality in the chest. 2. No acute abdominal or pelvic process. RADIATION DOSE DELIVERED: 914.45mGy.cm Total DLP DATA REPOSITORY: All CT scans at this facility are submitted to the National Radiology Data Registry (NRDR) Dose Index Registry (DIR) with the [employer] (ACR). RADIATION OPTIMIZATION: All CT scans at this facility use at least one of these dose optimization te chniques: automated exposure control; mA and/or kV adjustment per patient size (includes targeted exa ms where dose is matched to clinical indication); or iterative reconstruction.
[2021-11-03 12:45] LABS: Abs Immature Grans 0.02 10^3/uL (0.0-0.06); Absolute Basophil Count 0.06 10^3/uL (0.0-0.2); Absolute Eosinophil Count 0.03 10^3/uL (0.0-0.7); Absolute Lymphocyte Count 1.79 10^3/uL (1.2-3.4); Basophils % 0.9; Eosinophils % 0.5; HCT 40.9 % (36.0-46.0); HGB 13.8 g/dL (11.2-15.7); Immature Grans % 0.3; Lymphocytes % 27.1; MCH 31.2 pg (27.0-33.0); MCHC 33.7 % (32.0-36.0); MCV 93 fL (80-95); MPV 10.2 fL (8.0-11.0); Monocytes % 7.6; Neutrophils % 63.6; Platelet Count 235 10^3/uL (130-400); RBC 4.42 10^6/uL (3.93-5.22); RDW 12.4 % (11.7-14.6); RDW-SD 42.8 fL
[2021-11-03] MEDS: Mylanta Suspension 30 ML CUP PO (12:46)
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
[2021-11-03 12:53] LABS: INR 1.2 (0.9-1.1); PTT Activated 23.9 sec (21.0-27.5); Prothrombin Time 11.9 sec (9.3-11.0)
[2021-11-03 12:58] LABS: ALT 15 U/L (14-59); AST 15 U/L (15-37); Albumin 4.6 g/dL (3.4-5.0); Alkaline Phosphatase 33 U/L (46-116); Anion Gap 11.1 mmol/L (3-11); BUN 13 mg/dL (7-18); Bilirubin, Total 0.6 mg/dL (0.2-1.0); CO2 24.9 mmol/L (21.0-32.0); CREATININE 0.8 mg/dL (0.55-1.02); Calcium 9.4 mg/dL (8.5-10.1); Chloride 103 mmol/L (98-107); Glucose 86 mg/dL (74-106); Lipase 104 U/L (73-393); Magnesium 1.9 mg/dL (1.8-2.4); Potassium 3.7 mmol/L (3.5-5.1); Sodium 139 mmol/L (136-145); Total Protein 7.6 g/dL (6.4-8.2); Troponin I < 50 ng/L (<or=60)
[2021-11-03 13:09] LABS: D-Dimer 182 ng/mlFEU (<500)
[2021-11-03] MEDS: Omnipaque 350 MG/ML 100 ML BTL IJ (14:38)
[2021-11-03] MEDS: Normal Saline Flush 10 ML SYR IVP (14:39)
[2021-11-03 16:20] LABS: Troponin I < 50 ng/L (<or=60)
== END 2021-11-03 16:40 | disposition home or self-care (01) ==
PROVIDERS: Emergency Provider Physician Assistant; PCP Nurse Practitioner Family
DX: R07.9 Chest pain, unspecified (principal); R06.02 Shortness of breath; M54.50 Low back pain, unspecified
CPT/HCPCS: 36415; 71275; 80053; 83690; 93005; 96374; 96375; 99285; 74174; 83735; 84484; 85025; 85379; 85610; 85730; 93010; 99284; J1885; J2270; J3360; J3490

== ENCOUNTER → 2021-11-07 01:35 | Outpatient (CLI) | payer MEDICAID, SELFPAY ==
--- NOTE | 2021-11-07 | DI.MRI_ITS ---
Exam(s) MR LUMBAR SPINE WO EXAM: MR LUMBAR SPINE WO CLINICAL HISTORY: INTRACTABLE LOW BACK PAIN, M54.59. TECHNIQUE: Multiplanar multisequence MRI of the Lumbar spine was performed. COMPARISON: No exams were available for comparison FINDINGS: Bones: The last intervertebral disc space is designated the L5/S1 level for the numbering purpose of this examination. The vertebral body heights are well maintained. Alignment is satisfactory. The si gnal characteristics are unremarkable. Cord: The conus tip ends at the L1 level. It is of normal size and signal intensity. T12-L1: No disc herniations or bulges are present. No central spinal canal or neural foraminal stenos is. L1-2: No disc herniations or bulges are present. No central spinal canal or neural foraminal stenosis . L2-3: No disc herniations or bulges are present. No central spinal canal or neural foraminal stenosis . L3-4: No disc herniations or bulges are present. No central spinal canal or neural foraminal stenosis . L4-5: There is a mild diffuse disc bulge. Mild degenerative changes of the facets are seen. No cent ral spinal canal or neural foraminal stenosis. L5-S1: No disc herniations or bulges are present. No central spinal canal or neural foraminal stenosi s. Soft tissues: The visualized SI joints and sacrum are well maintained. The paraspinal soft tissues ar e unremarkable. IMPRESSION: 1. No evidence of significant spinal stenosis or neuroforaminal narrowing. 2. Mild degenerative changes at L4-L5 with a mild diffuse disc bulge and mild facet arthropathy. DATA REPOSITORY:
== END ==
PROVIDERS: PCP Nurse Practitioner Family; Visit Provider Nurse Practitioner Family
DX: M47.816 Spondylosis without myelopathy or radiculopathy, lumbar region (principal); M51.26 Other intervertebral disc displacement, lumbar region
CPT/HCPCS: 72148

== ENCOUNTER 2022-07-16 17:05 | Emergency (ER) | payer MEDICAID, SELFPAY ==
--- NOTE | 2022-07-16 17:15 | DI.CT_ITS ---
Exam(s) CT ABDOMEN PELVIS W EXAM: CT ABDOMEN PELVIS W CLINICAL HISTORY: lower abdominal pain TECHNIQUE: Imaging Protocol: Axial computed tomography images with coronal and sagittal reformatted images were created and reviewed CONTRAST MATERIAL: Intravenous: Omnipaque 350 Contrast volume:99 mL Oral: No COMPARISON: CT CT THORAX ABD/PEL CTA from 11/03/2021 FINDINGS: ABDOMEN: Lung Bases: Normal where visualized. Liver: Normal density. No measurable mass. Portal, Superior Mesenteric, and Splenic Veins: Unremarkable. Gallbladder and Biliary Tract: Status post cholecystectomy. No significant biliary ductal dilatation . Pancreas: Normal density, no abnormal calcifications or inflammatory process. Spleen: Normal. Adrenals: No masses seen. Kidneys: Normal size, contour and axis. No radiodense stones or obstructive uropathy. No masses seen. Abdominal Aorta: Abdominal portion non-dilated. Bowel: No obstruction or bowel wall thickening. Appendix is unremarkable. Peritoneal Cavity: There is a small amount of pelvic ascites. This is likely physiologic. No free a ir. Lymph Nodes: Within normal limits. Bones: Within normal limits for the patient's age. Soft Tissues: Unremarkable. PELVIS: Bladder: Symmetric distention, no gross wall thickening. Reproductive Organs: Grossly unremarkable. There is a 2.1 x 1.5 cm peripherally enhancing left ovari an corpus luteal cyst. This is within normal limits for the patient's age. Lymph Nodes: Within normal limits. Bones: Within normal limits for the patient's age. IMPRESSION: No acute abdominal or pelvic process. RADIATION DOSE DELIVERED: 954.96mGy.cm Total DLP DATA REPOSITORY: All CT scans at this facility are submitted to the National Radiology Data Registry (NRDR) Dose Index Registry (DIR) with the [employer] (ACR). RADIATION OPTIMIZATION: All CT scans at this facility use at least one of these dose optimization te chniques: automated exposure control; mA and/or kV adjustment per patient size (includes targeted exa ms where dose is matched to clinical indication); or iterative reconstruction.
[2022-07-16 17:16] VITALS: BP 113/81; PULSE 82; RESP 20; O2SAT 97
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
[2022-07-16] MEDS: Normal Saline 1,000 ML 1000 ML IV (17:46)
[2022-07-16] MEDS: Ketorolac 15 MG/ML VIAL IVP (17:46)
[2022-07-16] MEDS: Ondansetron 4 MG/2 ML VIAL IVP (17:46)
[2022-07-16 17:52] LABS: Abs Immature Grans 0.01 10^3/uL (0.0-0.06); Absolute Basophil Count 0.07 10^3/uL (0.0-0.2); Absolute Eosinophil Count 0.15 10^3/uL (0.0-0.7); Absolute Lymphocyte Count 1.65 10^3/uL (1.2-3.4); Absolute Monocyte Count 0.46 10^3/uL (0.1-0.8); Absolute Neutrophil Count 3.47 10^3/uL (1.2-6.7); Basophils % 1.2; Eosinophils % 2.6; HCT 40.9 % (36.0-46.0); HGB 14.2 g/dL (11.2-15.7); Immature Grans % 0.2; Lymphocytes % 28.4; MCH 32.1 pg (27.0-33.0); MCHC 34.7 % (32.0-36.0); MCV 92 fL (80-95); MPV 9.4 fL (8.0-11.0); Monocytes % 7.9; Neutrophils % 59.7; Platelet Count 222 10^3/uL (130-400); RBC 4.43 10^6/uL (3.93-5.22); RDW 12.1 % (11.7-14.6); RDW-SD 41.4 fL; WBC 5.81 10^3/uL (4.4-10.8)
[2022-07-16] MEDS: Normal Saline - Diluent 50 ML VIAL IJ (18:02)
[2022-07-16] MEDS: Omnipaque 350 MG/ML 100 ML BTL IJ (18:02)
[2022-07-16 18:14] LABS: ALT 16 U/L (14-59); AST 13 U/L (15-37); Albumin 4.4 g/dL (3.4-5.0); Alkaline Phosphatase 38 U/L (46-116); Anion Gap 8.2 mmol/L (3-11); BUN 8 mg/dL (7-18); Bilirubin, Total 0.3 mg/dL (0.2-1.0); CO2 27.8 mmol/L (21.0-32.0); CREATININE 0.9 mg/dL (0.55-1.02); Calcium 9.4 mg/dL (8.5-10.1); Chloride 106 mmol/L (98-107); Estimated GFR 86.03 (mL/min/1.73m2); Glucose 90 mg/dL (74-106); Lipase 35 U/L (16-77); Potassium 3.8 mmol/L (3.5-5.1); Sodium 142 mmol/L (136-145); Total Protein 7.2 g/dL (6.4-8.2)
--- NOTE | 2022-07-16 18:30 | DI.VRAD_ITS ---
PROCEDURE INFORMATION: Exam: CT Abdomen And Pelvis With Contrast Exam date and time: 07/16/2022 5:58 PM Age: 36 years old Clinical indication: Other: Lower abdominal pain TECHNIQUE: Imaging protocol: Computed tomography of the abdomen and pelvis with contrast. Radiation optimization: All CT scans at this facility use at least one of these dose optimization techniques: automated exposure control; mA and/or kV adjustment per patient size (includes targeted exams where dose is matched to clinical indication); or iterative reconstruction. Contrast material: OMNIPAQUE 350; Contrast volume: 99 ml; Contrast route: INTRAVENOUS (IV); COMPARISON: CT THORAX ABD/PEL CTA 11/03/2021 2:30 PM FINDINGS: Lungs: Lung bases clear. Liver: Normal appearing liver. Gallbladder and bile ducts: Prior cholecystectomy. No biliary dilatation. Pancreas: Normal appearing pancreas. Spleen: Normal appearing spleen. Adrenal glands: Normal appearing adrenal glands. Kidneys and ureters: Normal appearing kidneys. No hydronephrosis. Stomach and bowel: Stomach partially decompressed. Normal-appearing colon. No evidence of diverticulitis or colitis. Appendix: Normal appendix. Intraperitoneal space: Small amount of free fluid in the deep pelvis. No free air. Vasculature: Normal caliber abdominal aorta. Lymph nodes: No pathologically enlarged mesenteric, retroperitoneal, or pelvic sidewall lymph nodes. Urinary bladder: Urinary bladder partially collapsed but grossly unremarkable, as seen. Reproductive: Uterus and ovaries partially obscured but grossly normal in size. 2.1 cm x 1.5 cm peripherally enhancing left ovarian corpus luteum, best demonstrated by the coronal series. Bones/joints: No acute fracture seen among the bones of the abdomen or pelvis. Soft tissues: No significant ventral or inguinal hernia. IMPRESSION: 1. 2.1 cm x 1.5 cm peripherally enhancing left ovarian corpus luteum with a small amount of free fluid. 2. No acute bowel pathology demonstrated. Dictated and Authenticated by: Nasim Dougherty MD. Ordering:CONTRERAS Chavez MD
[2022-07-16] MEDS: Droperidol 5 MG/2 ML VIAL IVP (18:54)
[2022-07-16 19:51] VITALS: BP 109/77; PULSE 77; RESP 16; TEMP 36.4; O2SAT 98
[2022-07-16 20:05] LABS: Bilirubin Negative (Negative); Blood Negative (Negative); Clarity Clear (Clear); Glucose Negative (Negative); Ketones Negative (Negative); Leukocyte Esterase Negative (Negative); Nitrite Negative (Negative); Specific Gravity 1.015 (1.005-1.025); Urobilinogen 0.2 mg/dL (Up to 0.2)
== END 2022-07-16 20:02 | disposition left against medical advice (07) ==
PROVIDERS: Emergency Provider Emergency Medicine; PCP Nurse Practitioner Family
DX: R10.9 Unspecified abdominal pain (principal); R11.0 Nausea; Z98.51 Tubal ligation status; Z90.49 Acquired absence of other specified parts of digestive tract; R10.813 Right lower quadrant abdominal tenderness; R10.814 Left lower quadrant abdominal tenderness
CPT/HCPCS: 36415; 80053; 83690; 96361; 96374; 96375; 99285; 74177; 81003; 83735; 85025; 99284; J1790; J1885; J2405; J3490

== ENCOUNTER 2022-07-31 16:29 | Outpatient (REF) | payer MEDICAID, SELFPAY | END 2022-07-31 16:30 | disposition home or self-care (01) | LOC: LBN 16:29 | PROVIDERS: PCP Nurse Practitioner Family; Visit Provider Nurse Practitioner Family | DX: J02.9 Acute pharyngitis, unspecified (principal) | CPT/HCPCS: 87081 ==

== ENCOUNTER 2022-11-16 17:29 | Outpatient (REF) | payer MEDICAID, SELFPAY ==
[2022-11-16 21:08] LABS: Abs Immature Grans 0.01 10^3/uL (0.0-0.06); Absolute Basophil Count 0.07 10^3/uL (0.0-0.2); Absolute Eosinophil Count 0.12 10^3/uL (0.0-0.7); Absolute Lymphocyte Count 1.43 10^3/uL (1.2-3.4); Absolute Monocyte Count 0.47 10^3/uL (0.1-0.8); Absolute Neutrophil Count 3.41 10^3/uL (1.2-6.7); Basophils % 1.3; Eosinophils % 2.2; HCT 39.3 % (36.0-46.0); HGB 13.4 g/dL (11.2-15.7); Immature Grans % 0.2; MCH 32.2 pg (27.0-33.0); MCHC 34.1 % (32.0-36.0); MCV 95 fL (80-95); MPV 9.9 fL (8.0-11.0); Monocytes % 8.5; Neutrophils % 61.8; Platelet Count 247 10^3/uL (130-400); RBC 4.16 10^6/uL (3.93-5.22); RDW 12.8 % (11.7-14.6); RDW-SD 44.6 fL; WBC 5.51 10^3/uL (4.4-10.8)
[2022-11-16 21:33] LABS: ALT 18 U/L (14-59); AST 18 U/L (15-37); Albumin 4.7 g/dL (3.4-5.0); Alkaline Phosphatase 51 U/L (46-116); Anion Gap 11.6 mmol/L (3-11); BUN 13 mg/dL (7-18); Bilirubin, Total 0.4 mg/dL (0.2-1.0); CO2 27.4 mmol/L (21.0-32.0); Calcium 9.2 mg/dL (8.5-10.1); Chloride 102 mmol/L (98-107); Estimated GFR 75.34 (mL/min/1.73m2); Glucose 89 mg/dL (74-106); Potassium 3.6 mmol/L (3.5-5.1); Sodium 141 mmol/L (136-145); Total Protein 7.3 g/dL (6.4-8.2)
[2022-11-16 21:42] LABS: Lipase 49 U/L (16-77)
== END 2022-11-16 17:30 | disposition home or self-care (01) ==
LOC: LBN 17:29
PROVIDERS: PCP Nurse Practitioner Family; Visit Provider Physician Assistant Medical
DX: R10.31 Right lower quadrant pain (principal)
CPT/HCPCS: 80053; 83690; 85025

== ENCOUNTER 2022-11-19 22:45 | Outpatient (CLI) | payer MEDICAID, SELFPAY ==
--- NOTE | 2022-11-19 | DI.CT_ITS ---
Exam(s) CT ABDOMEN PELVIS W EXAM: CT ABDOMEN PELVIS W CLINICAL HISTORY: RLQ ABD PAIN, R10.31; ? APPENDICITIS TECHNIQUE: Imaging Protocol: Axial computed tomography images with coronal and sagittal reformatted images were created and reviewed CONTRAST MATERIAL: Intravenous: Omnipaque 350 Contrast volume:100 mL Oral: Yes COMPARISON: CT CT ABDOMEN PELVIS W from 07/16/2022 FINDINGS: ABDOMEN: Lung Bases: Normal where visualized. Liver: Normal density. No measurable mass. Portal, Superior Mesenteric, and Splenic Veins: Unremarkable. Gallbladder and Biliary Tract: Status post cholecystectomy. No significant biliary ductal dilatation is present. Pancreas: Normal density, no abnormal calcifications or inflammatory process. Spleen: Normal. Adrenals: No masses seen. Kidneys: Normal size, contour and axis. No radiodense stones or obstructive uropathy. No masses seen. Abdominal Aorta: Abdominal portion non-dilated. Bowel: No obstruction or bowel wall thickening. Appendix is unremarkable. Peritoneal Cavity: No ascites, collection or mesenteric inflammatory response. No free air. Lymph Nodes: Within normal limits. Bones: Within normal limits for the patient's age. Soft Tissues: Unremarkable. PELVIS: Bladder: The urinary bladder is incompletely distended but grossly unremarkable. Reproductive Organs: Unremarkable as visualized. Lymph Nodes: Within normal limits. Bones: Within normal limits for the patient's age. IMPRESSION: 1. No acute abdominal or pelvic process. 2. Normal appendix. RADIATION DOSE DELIVERED: Total DLP DATA REPOSITORY: All CT scans at this facility are submitted to the National Radiology Data Registry (NRDR) Dose Index Registry (DIR) with the [employer] (ACR). RADIATION OPTIMIZATION: All CT scans at this facility use at least one of these dose optimization te chniques: automated exposure control; mA and/or kV adjustment per patient size (includes targeted exa ms where dose is matched to clinical indication); or iterative reconstruction.
[2022-11-19] MEDS: Barium Sulfate 2% W/V-Berry Smoothie 450 ML BTL PO (11:27)
[2022-11-19] MEDS: Omnipaque 350 MG/ML 500 ML BTL-Imaging package IJ (13:31)
[2022-11-19] MEDS: Normal Saline - Diluent 50 ML VIAL IJ (13:32)
[2022-11-19] MEDS: Normal Saline Flush 10 ML SYR IVP (13:33)
== END 2022-11-19 23:05 ==
LOC: DI 22:45
PROVIDERS: PCP Nurse Practitioner Family; Visit Provider Physician Assistant Medical
DX: R10.31 Right lower quadrant pain (principal); Q44.0 Agenesis, aplasia and hypoplasia of gallbladder
CPT/HCPCS: 74177

== ENCOUNTER 2023-07-08 16:16 | Outpatient (REF) | payer MEDICAID, SELFPAY ==
--- NOTE | 2023-07-08 16:00 | PAPFT_PTH ---
PATIENT: Laine Ham LOC: [facility] U#:[id number] AGE/SX: 37/F ROOM: RE07/08/[address]: Anabel Dow : 1985 BED: DIS: 07/08/2023 SPEC #: [id number] RECD: 07/08/23 18:11 STATUS: ASHLYN REQ #: [id number] TITUS: 07/08/23 16:[address]: Anabel Dow DEPT: [facility] Cytology RECD BY: Kanchan Del Real ENTERED: 07/08/23 18:11 SP TYPE: PAPFT ESTEE DR: Unknown,Unknown Tissues: 1 - CX/ENDOCX FOR PAP SMEARS Procedures: PAP THIN PREP/[facility] Screening HPV DNA PROBE Comments: [id number]
== END 2023-07-08 16:17 | disposition home or self-care (01) ==
LOC: LBN 16:16
PROVIDERS: Visit Provider Obstetrics & Gynecology Gynecology
DX: Z12.4 Encounter for screening for malignant neoplasm of cervix (principal); Z11.51 Encounter for screening for human papillomavirus (HPV)
CPT/HCPCS: 88142; 87624

== ENCOUNTER 2023-07-08 17:56 | Outpatient (CLI) | payer MEDICAID, SELFPAY ==
[2023-07-08 18:24] LABS: TSH (W/Ref FT4) 3.44 uIU/mL (0.36-3.74)
[2023-07-10 14:43] LABS: Chlamydia Result Negative (Negative); GC Result Negative (Negative)
== END 2023-07-08 17:57 | disposition home or self-care (01) ==
LOC: LBO 17:57
PROVIDERS: Visit Provider Obstetrics & Gynecology Gynecology
DX: N92.0 Excessive and frequent menstruation with regular cycle (principal); N94.4 Primary dysmenorrhea
CPT/HCPCS: 36415; 87491; 87591; 84443

== ENCOUNTER → 2023-07-11 01:30 | Outpatient (CLI) | payer MEDICAID, SELFPAY ==
--- NOTE | 2023-07-11 14:38 | DI.US_ITS ---
Exam(s) US PELVIS TRANSVAGINAL EXAM: US PELVIS TRANSVAGINAL CLINICAL HISTORY: painful, heavy menses,n92.0,n94.6 TECHNIQUE: Ultrasound of the pelvis was performed both transabdominal and transvaginal. COMPARISON: CT CT ABDOMEN PELVIS W from 11/19/2022 FINDINGS: UTERUS: Nongravid and anteverted Measures 7.5 cm length x 4.6 cm AP x 5.4 cm wide. There are no uterine fibroids. Endometrial thickness measures 7 mm. Appears homogeneous. There is no fluid in the endometrial canal. CERVIX: There are no obvious nabothian cysts. RIGHT OVARY: Measures 3.4 x 3 x 2 cm Contains follicular cysts. The largest of these measures 1.2 x 1.1 cm. No complicated cysts nor refugio id masses. LEFT OVARY: Measures 0.4 x 1.4 x 2 cm Contains sub cm follicular cysts. No complicated cysts nor solid lesions CUL-DE-SAC: No free fluid evident. IMPRESSION: 1. Normal appearing uterus and age-appropriate endometrium. 2. No abnormal ovarian findings. Largest follicular cyst measures 12 x 11 mm and is located in the r ight ovary. This is probably the dominant follicular cyst this cycle. 3. No free fluid evident in the adnexal regions and cul-de-sac. DATA REPOSITORY:
== END ==
PROVIDERS: PCP Physician Assistant; Visit Provider Obstetrics & Gynecology Gynecology
DX: N92.1 Excessive and frequent menstruation with irregular cycle (principal)
CPT/HCPCS: 76830; 76856

== ENCOUNTER 2023-12-30 18:22 | Outpatient (REF) | payer MEDICAID, SELFPAY | END 2023-12-30 18:23 | disposition home or self-care (01) | LOC: LBN 18:22 | PROVIDERS: PCP Physician Assistant; Visit Provider Nurse Practitioner Family | DX: R30.0 Dysuria (principal); B96.29 Other Escherichia coli [E. coli] as the cause of diseases classified elsewhere | CPT/HCPCS: 87077; 87086; 87186 ==

== ENCOUNTER 2024-02-23 11:17 | Emergency (ER) | payer MEDICAID, SELFPAY ==
[2024-02-23 11:19] VITALS: BP 130/83; PULSE 88; RESP 20; TEMP 36.7; O2SAT 98
--- NOTE | 2024-02-23 11:30 | DI.CT_ITS ---
Exam(s) CT CHEST WO EXAM: CT CHEST WO CLINICAL HISTORY: left rib injury. TECHNIQUE: Multi planar reconstructions were performed. CONTRAST MATERIAL: None COMPARISON: No exams were available for comparison FINDINGS: CHEST: LUNGS: No evidence of infiltrates nor lung contusion. No pleural effusions. No pneumothorax. No fi ndings in the trachea and mainstem bronchi. MEDIASTINUM: No evidence of sternal fracture or mediastinal hematoma. Mild density in the anterior m ediastinal fat triangle is most probably thymus remnant. Visualized thyroid enhances inhomogeneously . May contain small nodules.No obvious axillary adenopathy CARDIAC: Heart size is normal. There is no pericardial effusion.Caliber of the thoracic aorta is wit hin normal limits. VISUALIZED UPPER ABDOMEN: No significant findings IMPRESSION: No significant trauma sequelae in the chest evident on this noncontrast CT scan. RADIATION DOSE DELIVERED: 232.32mGy.cm Total DLP DATA REPOSITORY: All CT scans at this facility are submitted to the National Radiology Data Registry (NRDR) Dose Index Registry (DIR) with the [employer] (ACR). RADIATION OPTIMIZATION: All CT scans at this facility use at least one of these dose optimization te chniques: automated exposure control; mA and/or kV adjustment per patient size (includes targeted exa ms where dose is matched to clinical indication); or iterative reconstruction.
[2024-02-23] MEDS: Methocarbamol 500 MG TAB 1000 MG PO (11:37)
[2024-02-23] MEDS: MORPHine IR 15 MG TAB PO (11:38)
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
[2024-02-23] MEDS: Ondansetron O.D.T. 4 MG TABEF PO (12:27)
--- NOTE | 2024-02-23 12:32 | DI.VRAD_ITS ---
PROCEDURE INFORMATION: Exam: CT Chest Without Contrast; Diagnostic Exam date and time: 02/23/2024 12:07 PM Age: 38 years old Clinical indication: Injury or trauma; Fall; Blunt trauma (contusions or hematomas) TECHNIQUE: Imaging protocol: Diagnostic computed tomography of the chest without contrast. 3D rendering (Not supervised by radiologist): MIP and/or 3D reconstructed images were created by the technologist. COMPARISON: CT THORAX ABD/PEL CTA 11/03/2021 2:30 PM FINDINGS: Lungs: Unremarkable. No consolidation. No masses. Pleural spaces: Unremarkable. No pneumothorax. No pleural effusion. Heart: Unremarkable. No cardiomegaly. No pericardial effusion. Lymph nodes: Unremarkable. No enlarged lymph nodes. Vasculature: Unremarkable. No aortic aneurysm. Bones/joints: Unremarkable. No acute fracture. Soft tissues: Unremarkable. IMPRESSION: No posttraumatic changes in the chest. Dictated and Authenticated by: Ezio Mohamud MD. Ordering:BERNARD Conte MD
--- NOTE | 2024-02-23 12:45 | RT.EKG_ITS ---
APPROVED REPORT Exam: Resting ECG Reason for Exam: chest heaviness Patient Location: E HR:69 bpm ECG Measurements Heart Rate 69 AXIS LA 129 P 59 QRSd 95 QRS 81 QT 389 T 66 QTc 418 Conclusion Sinus rhythm...normal P axis, V-rate 60- 99 Nonspecific T abnormalities, lateral leads...T <-0.10mV, I aVL V5 V6 I have reviewed and interpreted ECG and agree with software generated interpretation.
[2024-02-23 12:58] VITALS: BP 168/142; PULSE 81
[2024-02-23] MEDS: Lidocaine 5% Patch 1 PATCH TP (12:59)
[2024-02-23 13:00] VITALS: BP 125/93; PULSE 77; RESP 18; O2SAT 100
[2024-02-23 13:03] VITALS: BP 115/63; PULSE 68; PULSE 72; RESP 16; O2SAT 100
--- NOTE | 2024-02-23 13:04 | NUR.NOTE ---
Nursing Note: patient dressed getting ready to DC felt [facility] CP used call light to alert staff, ekg was performed as ordered. Pt states pain is getting better at this time
[2024-02-23 13:16] VITALS: BP 120/75; PULSE 75; PULSE 76; RESP 9; O2SAT 100
== END 2024-02-23 13:21 | disposition home or self-care (01) ==
PROVIDERS: Emergency Provider Emergency Medicine; PCP Physician Assistant
DX: R07.81 Pleurodynia (principal)
CPT/HCPCS: 71250; 93005; 99284; 93010